=== PATIENT | female | born 1945 | race Caucasian/White ===

== ENCOUNTER → 2018-07-31 | Outpatient (CLI) | payer MEDICARE ==
[2015-11-01 10:42] VITALS: BP 128/70
[~2018-07-31] MED LIST: ALPR0.5T6 PO; AMLO5TAB4 PO; ASPI-630 PO; GABA-585 PO; LOSA1TAB25 PO; LOSA25TA54 PO; METO25TA4 PO; OXYC1TAB15 PO; PARO20TA3 PO
--- NOTE | 2018-07-31 14:36 | KCIC ---
3d digital tomography [bilateral] History: Routine screening Technique: Bilateral 3d digital tomographic views were obtained with [employer] [place] and reviewed on a [employer] workstation. In addition, CAD - computer aided detection was utilized. Comparison: None. Findings: Breast Tissue Density D : The breast tissue is predominantly dense. Scattered fibroglandular elements may obscure underlying pathology. There are no suspicious masses, microcalcifications or areas of architectural distortion. Impression: No suspicious findings. BI-RADS Category 1: Negative. Normal interval followup. The patient will receive a letter with the results in the mail. Your mammogram demonstrates that you have dense breast tissue, which could hide abnormalities, and if you have other risk factors for breast cancer that have been identified, you might benefit from supplemental screening tests that may be suggested by your ordering physician. Dense breast tissue, in and of itself, is a relatively common condition. This information is not provided to cause undue concern, but rather to raise your awareness and to promote discussion with your physician regarding the presence of other risk factors, in addition to dense breast tissue. A report of your mammography results will be sent to you and your physician. You should contact your physician if you have any questions or concerns regarding this report. A mammogram does not have 100% sensitivity and therefore a negative imaging study should not delay further work up of a suspicious abnormality. Patient information is entered into the [facility] reminder system using [employer] with a target due date for the next screening mammogram. The patient will receive a reminder. "Our facility is accredited by the [employer] Mammography Program." Electronically signed by: Rob Mckinley III, MD (07/31/2018 2:32 PM) [id number]
== END | disposition home or self-care (01) ==
LOC: KCIC MAMMO 10:59
PROVIDERS: ATTEND Physician Assistant Surgical
DX: Z12.31 Encounter for screening mammogram for malignant neoplasm of breast (principal)
CPT/HCPCS: 77063; 77067

== ENCOUNTER → 2018-09-04 | Day surgery (SDC) | payer MEDICARE ==
[~2018-09-04] MED LIST changes: +ASPI81TA50 PO; +BENZ100C PO; +ERGO500027 PO; +IV RINGERS,LACTATED 1000ML 1,000 ML IV SCH; +LATA2.5D3 EACHEYE; +LIDOCAINE 1% PF 2 ML VIAL. ID PRN; +MIDAZOLAM HCL/PF 2 MG/2 ML VIAL. IV PRN; +PROPOFOL 40 ML IV ONE; +fentaNYL PF VIAL 100 MCG/2 ML VIAL IV PRN
--- NOTE | 2018-09-04 09:14 | CONS ---
DATE OF CONSULTATION: 09/04/2018 REFERRING PHYSICIAN: KLAUDIA Olivera HISTORY OF PRESENT ILLNESS: This is a 73-year-old female with past medical history significant for hypertension, status post cataract surgery, status post cholecystectomy, status post obstructive hydronephrosis surgery on her kidney, seen for a screening colon exam. Bowel habits are regular without diarrhea or constipation. There has been no melena and/or hematochezia. Weight and appetite are stable. Family history is unrevealing for colon polyps or colon cancer to her knowledge. PAST MEDICAL HISTORY: Status post cataract surgery, gallbladder surgery, kidney surgery. ALLERGIES: LATEX. MEDICATIONS: Include aspirin, Tessalon, vitamin D, losartan and metoprolol. FAMILY AND SOCIAL HISTORY: She is a smoker, nondrinker. She is retired. REVIEW OF SYSTEMS: As per records. PHYSICAL EXAMINATION: GENERAL: Reveals a well-nourished, well-developed female. VITAL SIGNS: Temperature is 98, pulse 95, respirations 20. HEENT: Normocephalic and atraumatic head. Pupils and extraocular movements are not tested. Sclerae anicteric. NECK: Supple. LUNGS: Clear. CARDIOVASCULAR: Reveals S1, S2 without S3, S4 or appreciable murmur. ABDOMEN: Soft abdomen, normal bowel sounds without appreciable hepatosplenomegaly. EXTREMITIES: Reveals no cyanosis, clubbing, edema. IMPRESSION AND PLAN: Colorectal screening is warranted at this time. Risks and benefits of procedure including risk of hemorrhage and perforation regarding operation were discussed. The patient is willing to proceed. CHASITY MADDOX MD DR: MORGAN/phyllis JOB#: [id number] / [id number] KAYLEY Ortzi
[2018-09-04 09:32] VITALS: BP 123/58
== END | disposition home or self-care (01) ==
LOC: SURG 07:35
PROVIDERS: ATTEND Internal Medicine Gastroenterology
DX: Z12.11 Encounter for screening for malignant neoplasm of colon (principal); K57.30 Diverticulosis of large intestine without perforation or abscess without bleeding; K64.0 First degree hemorrhoids; I10 Essential (primary) hypertension; Z90.49 Acquired absence of other specified parts of digestive tract; Z98.890 Other specified postprocedural states; Z91.040 Latex allergy status; Z79.82 Long term (current) use of aspirin; Z79.899 Other long term (current) drug therapy; F17.200 Nicotine dependence, unspecified, uncomplicated; Z98.42 Cataract extraction status, left eye; Z98.41 Cataract extraction status, right eye; Z96.1 Presence of intraocular lens
CPT/HCPCS: G0121; J2704; 45378

== ENCOUNTER 2018-12-12 15:24 | Inpatient (IN) | payer MEDICARE ==
[~2018-12-12] VITALS: Ht 165.1 cm; Wt 69.1 kg
[~2018-12-12 15:24] MED LIST changes: -IV RINGERS,LACTATED 1000ML 1,000 ML IV SCH; -LIDOCAINE 1% PF 2 ML VIAL. ID PRN; -MIDAZOLAM HCL/PF 2 MG/2 ML VIAL. IV PRN; -PROPOFOL 40 ML IV ONE; -fentaNYL PF VIAL 100 MCG/2 ML VIAL IV PRN
[2018-12-12] MEDS ORDERED: ASPIRIN 325 MG TABLET PO ONE (16:15)
[2018-12-12] MEDS ORDERED: MORPHINE SULFATE 2 MG/ML VIAL. IV/SQ PRN (16:15)
[2018-12-12] MEDS ORDERED: NITROGLYCERIN SUBLINGUAL 0.4 MG BOTTLE OF 25. SL PRN (16:15)
--- NOTE | 2018-12-12 16:49 | RAD ---
Chest, PA and Lateral: Technique: PA and lateral views of the chest were obtained. History: Chest pain. Comparison: 08/21/2018. Findings/ impression: The heart size grossly appears unremarkable. Mild hyperinflated lungs likely changes of COPD. Biapical lung airspace opacities unchanged. Electronically signed by: Sulaiman Fernando MD (12/12/2018 4:47 PM) [id number]
[2018-12-12 16:53] LABS: BILIRUBIN,URINE NEGATIVE (NEG); CLARITY,URINE CLEAR; COLOR,URINE YELLOW; NITRITE,URINE NEGATIVE (NEG); PH,URINE 6.5; PROTEIN,URINE NEGATIVE (NEG-TRACE); UROBILINOGEN,URINE 0.2 mg/dL (0.2 mg/dL)
[2018-12-12 17:01] LABS: BARBITURATES NEG (NEG); BENZODIAZEPINES NEG (NEG); CANNABINOIDS NEG (NEG); COCAINE NEG (NEG); METHADONE NEG (NEG); OPIATES NEG (NEG); PHENCYCLIDINE NEG (NEG)
[2018-12-12 17:02] LABS: AMPHETAMINE/METHAMPHETAMINE NEG (NEG)
[2018-12-12 17:03] LABS: BASO % 1 % (0-3); EOS % 1 % (0-3); HEMATOCRIT 39.9 % (36.0-47.0); HEMOGLOBIN 12.9 g/dL (12.0-15.5); LYMPH # 1.1 x10^3/uL (1.0-4.8); LYMPH % 24 % (24-48); MEAN CORPUSCULAR HEMOGLOBIN 28 pg (25-35); MEAN CORPUSCULAR HGB CONC 32 g/dL (31-37); MEAN CORPUSCULAR VOLUME 87 fL (79-100); MONO # 0.4 x10^3/uL (0.0-1.1); MONO % 10 % (0-9); NEUT # 2.8 x10^3uL (1.8-7.7); NEUT % 64 % (31-73); PLATELET COUNT 146 x10^3/uL (140-400); RED BLOOD COUNT 4.59 x10^6/uL (3.50-5.40); RED CELL DISTRIBUTION WIDTH 14.1 % (11.5-14.5); WHITE BLOOD COUNT 4.4 x10^3/uL (4.0-11.0)
[2018-12-12 17:04] LABS: BACTERIA,URINE 0 /HPF (0-FEW); SQUAMOUS EPITHELIAL CELL,UR FEW /LPF; WBC,URINE 0 /HPF (0-4)
[2018-12-12 17:12] LABS: CALCIUM 9.4 mg/dL (8.5-10.1); CREATININE 0.7 mg/dL (0.6-1.0); GFR 82.3; POTASSIUM 3.9 mmol/L (3.5-5.1); PROTHROMBIN TIME PATIENT 12.1 SEC (11.7-14.0)
[2018-12-12 17:18] LABS: ALBUMIN 3.7 g/dL (3.4-5.0); ALBUMIN/GLOBULIN RATIO 1.2 (1.0-1.7); MAGNESIUM 1.9 mg/dL (1.8-2.4); TOTAL BILIRUBIN 0.4 mg/dL (0.2-1.0); TOTAL PROTEIN 6.9 g/dL (6.4-8.2)
[2018-12-12 17:26] LABS: CREATINE KINASE 32 U/L (26-192)
--- NOTE | 2018-12-12 20:06 | PHYS DOC ---
Past Medical History Past Medical History: Anxiety, COPD, Hypertension, Other Additional Past Medical Histor: chronic cough, glaucoma, tremors Past Surgical History: Cholecystectomy, Other Additional Past Surgical Histo: left kidney surgery (minor) Additional Information: 1 PACK/DAY Alcohol Use: None Drug Use: None Adult General Chief Complaint Chief Complaint: CHEST PAIN HPI HPI Patient is a 73 year old female with history of hypertension, COPD, current smoker, oxygen 2 L at home and presents to the ED today complaining of a productive cough for 2 days as well as chest pain rated at 4 out of 10 described as achiness. Patient states that achiness in the cast is worse when she is coughing. Denies any fever. Denies anything specifically relieving the achiness. She states is supposed to be on oxygen but typically doesn't use it as prescribed. She states she has chronic shortness of breath from COPD. Review of Systems Review of Systems Constitutional: Denies fever or chills [] Eyes: Denies change in visual acuity, redness, or eye pain [] HENT: Denies nasal congestion or sore throat [] Respiratory: Reports cough, and chronic shortness of breath [] Cardiovascular: Reports chest pain GI: Denies abdominal pain, nausea, vomiting, bloody stools or diarrhea [] : Denies dysuria or hematuria [] Musculoskeletal: Denies back pain or joint pain [] Integument: Denies rash or skin lesions [] Neurologic: Denies headache, focal weakness or sensory changes [] All other systems were reviewed and found to be within normal limits, except as documented in this note. Current Medications Current Medications Current Medications Medications (Trade) Dose Ordered Sig/[facility] Start Time Stop Time Status Last Admin Dose Admin Aspirin (Vicky Aspirin) 325 mg 1X ONCE 12/12/18 16:15 12/12/18 16:18 DC 12/12/18 17:01 325 MG Morphine Sulfate (Morphine Sulfate) 2 mg PRN Q15MIN PRN 12/12/18 16:15 12/13/18 16:14 12/12/18 17:47 2 MG Nitroglycerin (Nitrostat) 0.4 mg PRN Q5MIN PRN 12/12/18 16:15 12/13/18 16:14 12/12/18 17:02 0.4 MG Allergies Allergies Allergies Coded Allergies Type Severity Reaction Last Updated Verified latex Allergy Intermediate Itching 09/04/18 Yes Physical Exam Physical Exam Constitutional: Well developed, well nourished, no acute distress, non-toxic appearance. [] HENT: Normocephalic, atraumatic, bilateral external ears normal, oropharynx moist, no oral exudates, nose normal. [] Eyes: PERRLA, EOMI, conjunctiva normal, no discharge. [] Neck: Normal range of motion, no tenderness, supple, no stridor. [] Cardiovascular:Heart rate regular rhythm, no murmur [] Lungs & Thorax: Diminished breath sounds. Abdomen: Bowel sounds normal, soft, no tenderness, no masses, no pulsatile masses. [] Skin: Warm, dry, no erythema, no rash. [] Back: No tenderness, no CVA tenderness. [] Extremities: No tenderness, no cyanosis, no clubbing, ROM intact, no edema. [] Neurologic: Alert and oriented X 3, normal motor function, normal sensory function, no focal deficits noted. [] Psychologic: Affect normal, judgement normal, mood normal. [] Current Patient Data Vital Signs Vital Signs Date Time Temp Pulse Resp B/P (MAP) Pulse Ox O2 Delivery O2 Flow Rate FiO2 12/12/18 17:47 18 93 Room Air 12/12/18 17:45 64 116/67 (83) 12/12/18 15:58 98.6 98.6 Lab Values Laboratory Tests Test 12/12/18 16:40 12/12/18 16:49 Urine Collection Type Unknown Urine Color Yellow Urine Clarity Clear Urine pH 6.5 Urine Specific [place] 1.010 Urine Protein Negative mg/dL (NEG-TRACE) Urine Glucose (UA) Negative mg/dL (NEG) Urine Ketones (Stick) Negative mg/dL (NEG) Urine Blood Negative (NEG) Urine Nitrite Negative (NEG) Urine Bilirubin Negative (NEG) Urine Urobilinogen Dipstick 0.2 mg/dL (0.2 mg/dL) Urine Leukocyte Esterase Negative (NEG) Urine RBC 1-2 /HPF (0-2) Urine WBC 0 /HPF (0-4) Urine Squamous Epithelial Cells Few /LPF Urine Transitional Epithelial Cells Occ /LPF Urine Renal Epithelial Cells Occ /LPF Urine Bacteria 0 /HPF (0-FEW) Urine Mucus Slight /LPF Urine Opiates Screen Neg (NEG) Urine Methadone Screen Neg (NEG) Urine Barbiturates Neg (NEG) Urine Phencyclidine Screen Neg (NEG) Urine Amphetamine/Methamphetamine Neg (NEG) Urine Benzodiazepines Screen Neg (NEG) Urine Cocaine Screen Neg (NEG) Urine Cannabinoids Screen Neg (NEG) Urine Ethyl Alcohol Neg (NEG) White Blood Count 4.4 x10^3/uL (4.0-11.0) Red Blood Count 4.59 x10^6/uL (3.50-5.40) Hemoglobin 12.9 g/dL (12.0-15.5) Hematocrit 39.9 % (36.0-47.0) Mean Corpuscular Volume 87 fL (79-100) Mean Corpuscular Hemoglobin 28 pg (25-35) Mean Corpuscular Hemoglobin Concent 32 g/dL (31-37) Red Cell Distribution Width 14.1 % (11.5-14.5) Platelet Count 146 x10^3/uL (140-400) Neutrophils (%) (Auto) 64 % (31-73) Lymphocytes (%) (Auto) 24 % (24-48) Monocytes (%) (Auto) 10 % (0-9) H Eosinophils (%) (Auto) 1 % (0-3) Basophils (%) (Auto) 1 % (0-3) Neutrophils # (Auto) 2.8 x10^3uL (1.8-7.7) Lymphocytes # (Auto) 1.1 x10^3/uL (1.0-4.8) Monocytes # (Auto) 0.4 x10^3/uL (0.0-1.1) Eosinophils # (Auto) 0.0 x10^3/uL (0.0-0.7) Basophils # (Auto) 0.0 x10^3/uL (0.0-0.2) Prothrombin Time 12.1 SEC (11.7-14.0) Prothrombin Time INR 0.9 (0.8-1.1) Sodium Level 142 mmol/L (136-145) Potassium Level 3.9 mmol/L (3.5-5.1) Chloride Level 104 mmol/L (98-107) Carbon Dioxide Level 29 mmol/L (21-32) Anion Gap 9 (6-14) Blood Urea Nitrogen 11 mg/dL (7-20) Creatinine 0.7 mg/dL (0.6-1.0) Estimated GFR (Cockcroft-Gault) 82.3 BUN/Creatinine Ratio 16 (6-20) Glucose Level 96 mg/dL (70-99) Calcium Level 9.4 mg/dL (8.5-10.1) Magnesium Level 1.9 mg/dL (1.8-2.4) Total Bilirubin 0.4 mg/dL (0.2-1.0) Aspartate Amino Transferase (AST) 15 U/L (15-37) Alanine Aminotransferase (ALT) 21 U/L (14-59) Alkaline Phosphatase 90 U/L (46-116) Creatine Kinase 32 U/L (26-192) Creatine Kinase MB (Mass) < 0.5 ng/mL (0.0-3.6) Creatine Kinase MB Relative Index % (0-4) Troponin I Quantitative < 0.017 ng/mL (0.000-0.055) ES-Oay-T-Type Natriuretic Peptide 221 pg/mL (0-124) H Total Protein 6.9 g/dL (6.4-8.2) Albumin 3.7 g/dL (3.4-5.0) Albumin/Globulin Ratio 1.2 (1.0-1.7) Thyroid Stimulating Hormone (TSH) 1.155 uIU/mL (0.358-3.74) Laboratory Tests 12/12/18 16:49 Laboratory Tests 12/12/18 16:49 EKG EKG 15:[address] Michaud, sinus rhythm HR 69 no STEMI[] Radiology/Procedures Radiology/Procedures []PROCEDURE: CHEST PA & LATERAL Chest, PA and Lateral: Technique: PA and lateral views of the chest were obtained. History: Chest pain. Comparison: 08/21/2018. Findings/ impression: The heart size grossly appears unremarkable. Mild hyperinflated lungs likely changes of COPD. Biapical lung airspace opacities unchanged. Electronically signed by: Sulaiman Fernando MD (12/12/2018 4:47 PM) [id number] DICTATED and SIGNED BY: SULAIMAN FERNANDO MD DATE: 12/12/18 1647 Course & Med Decision Making Course & Med Decision Making Pertinent Labs and Imaging studies reviewed. (See chart for details) This is a 73-year-old female patient with history of COPD and oxygen 2 L presenting to the ED today complaining of cough, chronic shortness of breath and chest pain, symptoms began 2 days ago. Patient is afebrile in the ED, O2 sats were around 88 on room air, on oxygen she goes as high as 93-95. CBC, CMP, chest x-ray, EKG, negative. Heart score is 4 Spoke to who accepted patient for admission Cardiology consult placed. Denny Disclaimer Dragon Disclaimer This electronic medical record was generated, in whole or in part, using a voice recognition dictation system. Departure Departure Impression: Primary Impression: COPD exacerbation Additional Impression: Chest pain Disposition: 09 ADMITTED INPATIENT Condition: STABLE Referrals: KAYLEY EM (PCP) Problem Qualifiers Additional Impression: Chest pain Chest pain type: unspecified Qualified Codes: R07.9 - Chest pain, unspecified FLAQUITA SANTAMARIA SHAPE HAND December 12, 2018 20:06
[2018-12-12] MEDS ORDERED: ONDANSETRON PF 4 MG/2 ML VIAL. IV PRN (20:30)
[2018-12-12] MEDS ORDERED: ACETAMINOPHEN 325 MG TABLET. PO PRN (20:30)
[2018-12-12] MEDS ORDERED: IPRATRPIUM/ALBUTEROL 0.5/2.5MG 3 ML NEBU. NEB ONE (20:30)
[2018-12-12] MEDS ORDERED: methylPREDNISolone SOD SUCC PF 125 MG/2 ML VIAL. IV ONE (20:30)
[2018-12-12] MEDS ORDERED: MORPHINE SULFATE 2 MG/ML VIAL. IV PRN (20:30)
--- NOTE | 2018-12-12 22:15 | PDOC1 ---
History and Physical Date of Admission Date of Admission DATE: 12/12/18 TIME: 22:08 Identification/Chief Complaint Chief Complaint Shortness of breath Chest pain Source Source: Patient History of Present Illness History of Present Illness Ms Harmon is a 73 year old female with history of hypertension, COPD, current smoker who presents to the ED today complaining of a productive cough for 2 days as well as chest pain rated at 4 out of 10 described as achiness. Patient states that achiness in the chest is worse when she is coughing. Denies any fever. Denies anything specifically relieving the achiness. She states she was previously told to be on oxygen but typically doesn't use it as prescribed. She states she has chronic shortness of breath from COPD. In ED was notably <88% on room air and breathing 20 times per minute with tripoding and some intercostal retractions which improved slightly with steroids and nebulizers, was then called for admission. Past Medical History Cardiovascular: HTN Pulmonary: No pertinent hx CENTRAL NERVOUS SYSTEM: Other GI: No pertinent hx Heme/Onc: No pertinent hx Hepatobiliary: No pertinent hx Psych: Anxiety Musculoskeletal: low back pain Rheumatologic: No pertinent hx Infectious disease: No pertinent hx Renal/: No pertinent hx Endocrine: No pertinent hx Past Surgical History Past Surgical History: Cataract Removal, No pertinent history Family History Family History: Hypertension Social History Smoke: 1 pack per day ALCOHOL: none Drugs: None Current Problem List Problem List Problems Medical Problems: (1) Chest pain Status: Acute (2) COPD exacerbation Status: Acute Current Medications Current Medications Current Medications Aspirin (Vicky Aspirin) 325 mg 1X ONCE PO Last administered on 12/12/18at 17:01; Start 12/12/18 at 16:15; Stop 12/12/18 at 16:18; Status DC Nitroglycerin (Nitrostat) 0.4 mg PRN Q5MIN PRN SL CP RATING > 1/10 Last administered on 12/12/18at 17:02; Start 12/12/18 at 16:15; Stop 12/13/18 at 16:14 Morphine Sulfate (Morphine Sulfate) 2 mg PRN Q15MIN PRN IV/SQ PAIN GREATER THAN 3/10 Last administered on 12/12/18at 17:47; Start 12/12/18 at 16:15; Stop 12/13/18 at 16:14 Albuterol/ Ipratropium (Duoneb) 3 ml 1X ONCE NEB ; Start 12/12/18 at 20:30; Stop 12/12/18 at 20:31; Status DC Methylprednisolone Sodium Succinate (SOLU-Medrol 125MG VIAL) 125 mg 1X ONCE IV Last administered on 12/12/18at 21:34; Start 12/12/18 at 20:30; Stop 12/12/18 at 20:31; Status DC Ondansetron HCl (Zofran) 4 mg PRN Q8HRS PRN IV NAUSEA/VOMITING; Start 12/12/18 at 20:30; Stop 12/13/18 at 20:29 Morphine Sulfate (Morphine Sulfate) 2 mg PRN Q2HR PRN IV PAIN; Start 12/12/18 at 20:30; Stop 12/13/18 at 20:29 Acetaminophen (Tylenol) 650 mg PRN Q4HRS PRN PO FEVER; Start 12/12/18 at 20:30; Stop 12/13/18 at 20:29 Albuterol/ Ipratropium (Duoneb) 3 ml RTQID NEB ; Start 12/13/18 at 08:00; Stop 12/14/18 at 07:59 Aspirin (Ecotrin) 81 mg DAILY PO ; Start 12/13/18 at 09:00 Ergocalciferol (Vitamin D2) 50,000 unit WEEKLY PO ; Start 12/19/18 at 09:00 Losartan Potassium (Cozaar) 100 mg DAILY PO ; Start 12/13/18 at 09:00 Metoprolol Tartrate (Lopressor) 25 mg BID PO ; Start 12/13/18 at 09:00 Latanoprost (Xalatan) 1 drop QHS OU ; Start 12/13/18 at 21:00 Budesonide (Pulmicort) 0.5 mg RTBID NEB ; Start 12/13/18 at 08:00 Active Scripts Active Tessalon Perle (Benzonatate) 100 Mg Capsule 21 Cap PO TID Reported Aspir-Low (Aspirin) 81 Mg Tablet.dr 1 Tab PO DAILY Vitamin D2 (Ergocalciferol (Vitamin D2)) 50,000 Unit Capsule 50,000 Unit PO WEEKLY Latanoprost 2.5 Ml Drops 1 Drop EACHEYE QHS Metoprolol Tartrate 25 Mg Tablet 25 Mg PO BID 1/2 tablet twice daily Losartan Potassium (Losartan Potassium) 25 Mg Tablet 100 Mg PO DAILY Allergies Allergies: Coded Allergies: latex (Verified Allergy, Intermediate, Itching, 09/04/18) ROS General: YES: Fatigue, Malaise; No: Chills, Night Sweats, Appetite, Other PSYCHOLOGICAL ROS: No: Anxiety, Behavioral Disorder, Concentration difficultie, Decreased libido, Depression, Disorientation, Hallucinations, Hostility, Irritablity, Memory difficulties, Mood Swings, Obsessive thoughts, Physical abuse, Sexual abuse, Sleep disturbances, Suicidal ideation, Other Eyes: No Blurry vision, No Decreased vision, No Double vision, No Dry eyes, No Excessive tearing, No Eye Pain, No Itchy Eyes, No Loss of vision, No Photophobia, No Scotomata, No Uses contacts, No Uses glasses, No Other HEENT: No: Heacaches, Visual Changes, Hearing change, Nasal congestion, Nasal discharge, Oral lesions, Sinus pain, Sore Throat, Epistaxis, Sneezing, Snoring, Tinnitus, Vertigo, Vocal changes, Other ALLERGY AND IMMUNOLOGY: No: Hives, Insect Bite Sensitivity, Itchy/Watery Eyes, Nasal Congestion, Post Nasal Drip, Seasonal Allergies, Other Hematological and Lymphatic: No: Bleeding Problems, Blood Clots, Blood Transfusions, Brusing, Night Sweats, Pallor, Swollen Lymph Nodes, Other ENDOCRINE: No: Breast Changes, Galactorrhea, Hair Pattern Changes, Hot Flashes, Malaise/lethargy, Mood Swings, Palpitations, Polydipsia/polyuria, Skin Changes, Temperature Intolerance, Unexpected Weight Changes, Other Breast: No New/Changing Breast Lumps, No Nipple changes, No Nipple discharge, No Other Respiratory: YES: Cough, Pleuritic Pain, Shortness of breath, SOB with excertion, Wheezing; No: Hemoptysis, Orthopnea, Sputum Changes, Stridor, Tachypnea, Other Cardiovascular: yes Chest Pain; No Palpitations, No Orthopnea, No Paroxysmal Noc. Dyspnea, No Edema, No Lt Headedness, No Other Gastrointestinal: Yes Nausea, Yes Abdominal Pain; No Vomiting, No Diarrhea, No Constipation, No Melena, No Hematochezia, No Ot her Genitourinary: No Dysuria, No Frequency, No Incontinence, No Hematuria, No Retention, No Discharge, No Urgency, No Pain, No Flank Pain, No Other, No , No , No , No , No , No , No Musculoskeletal: No Gait Disturbance, No Joint Pain, No Joint Stiffness, No Joint Swelling, No Muscle Pain, No Muscular Weakness, No Pain In:, No Swelling I n:, No Other Neurological: No Behavorial Changes, No Bowel/Bladder ControlChng, No Confusion, No Dizziness, No Gait Disturbance, No Headaches, No Impaired Coord/balance, No Memory Loss, No Numbness/Tingling, No Seizures, No Speech Pro blems, No Tremors, No Visual Changes, No Weakness, No Other Skin: No Dry Skin, No Eczema, No Hair Changes, No Lumps, No Mole Changes, No Mottling, No Nail Changes, No Pruritus, No Rash, No Skin Lesion Changes, No Other, No Acne Physical Exam General: Alert, Oriented X3, Cooperative, No acute distress HEENT: Atraumatic, PERRLA, EOMI, Mucous membr. moist/pink Lungs: Other (Wheezes, prolonged expiratory phase) Heart: S1S2, RRR, no gallops, no murmurs Abdomen: Normal bowel sounds, Soft, No tenderness, No hepatosplenomegaly, No masses Extremities: No clubbing, No cyanosis, No edema, Normal pulses, No tenderness/swelling Skin: No rashes, No breakdown, No significant lesion Neuro: Normal gait, Normal speech, Strength at 5/5 X4 ext, Normal tone, Sensation intact, Cranial nerves 3-12 NL, Reflexes 2+ Psych/Mental Status: Mental status NL, Mood NL Vitals Vitals Vital Signs Date Time Temp Pulse Resp B/P (MAP) Pulse Ox O2 Delivery O2 Flow Rate FiO2 12/12/18 17:47 18 93 Room Air 12/12/18 17:45 64 116/67 (83) 12/12/18 15:58 98.6 98.6 Labs Labs Laboratory Tests Test 12/12/18 16:40 12/12/18 16:49 Urine Collection Type Unknown Urine Color Yellow Urine Clarity Clear Urine pH 6.5 Urine Specific [place] 1.010 Urine Protein Negative mg/dL (NEG-TRACE) Urine Glucose (UA) Negative mg/dL (NEG) Urine Ketones (Stick) Negative mg/dL (NEG) Urine Blood Negative (NEG) Urine Nitrite Negative (NEG) Urine Bilirubin Negative (NEG) Urine Urobilinogen Dipstick 0.2 mg/dL (0.2 mg/dL) Urine Leukocyte Esterase Negative (NEG) Urine RBC 1-2 /HPF (0-2) Urine WBC 0 /HPF (0-4) Urine Squamous Epithelial Cells Few /LPF Urine Transitional Epithelial Cells Occ /LPF Urine Renal Epithelial Cells Occ /LPF Urine Bacteria 0 /HPF (0-FEW) Urine Mucus Slight /LPF Urine Opiates Screen Neg (NEG) Urine Methadone Screen Neg (NEG) Urine Barbiturates Neg (NEG) Urine Phencyclidine Screen Neg (NEG) Urine Amphetamine/Methamphetamine Neg (NEG) Urine Benzodiazepines Screen Neg (NEG) Urine Cocaine Screen Neg (NEG) Urine Cannabinoids Screen Neg (NEG) Urine Ethyl Alcohol Neg (NEG) White Blood Count 4.4 x10^3/uL (4.0-11.0) Red Blood Count 4.59 x10^6/uL (3.50-5.40) Hemoglobin 12.9 g/dL (12.0-15.5) Hematocrit 39.9 % (36.0-47.0) Mean Corpuscular Volume 87 fL (79-100) Mean Corpuscular Hemoglobin 28 pg (25-35) Mean Corpuscular Hemoglobin Concent 32 g/dL (31-37) Red Cell Distribution Width 14.1 % (11.5-14.5) Platelet Count 146 x10^3/uL (140-400) Neutrophils (%) (Auto) 64 % (31-73) Lymphocytes (%) (Auto) 24 % (24-48) Monocytes (%) (Auto) 10 % (0-9) Eosinophils (%) (Auto) 1 % (0-3) Basophils (%) (Auto) 1 % (0-3) Neutrophils # (Auto) 2.8 x10^3uL (1.8-7.7) Lymphocytes # (Auto) 1.1 x10^3/uL (1.0-4.8) Monocytes # (Auto) 0.4 x10^3/uL (0.0-1.1) Eosinophils # (Auto) 0.0 x10^3/uL (0.0-0.7) Basophils # (Auto) 0.0 x10^3/uL (0.0-0.2) Prothrombin Time 12.1 SEC (11.7-14.0) Prothromb Time International Ratio 0.9 (0.8-1.1) Sodium Level 142 mmol/L (136-145) Potassium Level 3.9 mmol/L (3.5-5.1) Chloride Level 104 mmol/L (98-107) Carbon Dioxide Level 29 mmol/L (21-32) Anion Gap 9 (6-14) Blood Urea Nitrogen 11 mg/dL (7-20) Creatinine 0.7 mg/dL (0.6-1.0) Estimated GFR (Cockcroft-Gault) 82.3 BUN/Creatinine Ratio 16 (6-20) Glucose Level 96 mg/dL (70-99) Calcium Level 9.4 mg/dL (8.5-10.1) Magnesium Level 1.9 mg/dL (1.8-2.4) Total Bilirubin 0.4 mg/dL (0.2-1.0) Aspartate Amino Transf (AST/SGOT) 15 U/L (15-37) Alanine Aminotransferase (ALT/SGPT) 21 U/L (14-59) Alkaline Phosphatase 90 U/L (46-116) Creatine Kinase 32 U/L (26-192) Creatine Kinase MB (Mass) < 0.5 ng/mL (0.0-3.6) Creatine Kinase MB Relative Index % (0-4) Troponin I Quantitative < 0.017 ng/mL (0.000-0.055) IU-Adg-E-Type Natriuretic Peptide 221 pg/mL (0-124) Total Protein 6.9 g/dL (6.4-8.2) Albumin 3.7 g/dL (3.4-5.0) Albumin/Globulin Ratio 1.2 (1.0-1.7) Thyroid Stimulating Hormone (TSH) 1.155 uIU/mL (0.358-3.74) Laboratory Tests Test 12/12/18 16:40 12/12/18 16:49 Urine Collection Type Unknown Urine Color Yellow Urine Clarity Clear Urine pH 6.5 Urine Specific [place] 1.010 Urine Protein Negative mg/dL (NEG-TRACE) Urine Glucose (UA) Negative mg/dL (NEG) Urine Ketones (Stick) Negative mg/dL (NEG) Urine Blood Negative (NEG) Urine Nitrite Negative (NEG) Urine Bilirubin Negative (NEG) Urine Urobilinogen Dipstick 0.2 mg/dL (0.2 mg/dL) Urine Leukocyte Esterase Negative (NEG) Urine RBC 1-2 /HPF (0-2) Urine WBC 0 /HPF (0-4) Urine Squamous Epithelial Cells Few /LPF Urine Transitional Epithelial Cells Occ /LPF Urine Renal Epithelial Cells Occ /LPF Urine Bacteria 0 /HPF (0-FEW) Urine Mucus Slight /LPF Urine Opiates Screen Neg (NEG) Urine Methadone Screen Neg (NEG) Urine Barbiturates Neg (NEG) Urine Phencyclidine Screen Neg (NEG) Urine Amphetamine/Methamphetamine Neg (NEG) Urine Benzodiazepines Screen Neg (NEG) Urine Cocaine Screen Neg (NEG) Urine Cannabinoids Screen Neg (NEG) Urine Ethyl Alcohol Neg (NEG) White Blood Count 4.4 x10^3/uL (4.0-11.0) Red Blood Count 4.59 x10^6/uL (3.50-5.40) Hemoglobin 12.9 g/dL (12.0-15.5) Hematocrit 39.9 % (36.0-47.0) Mean Corpuscular Volume 87 fL (79-100) Mean Corpuscular Hemoglobin 28 pg (25-35) Mean Corpuscular Hemoglobin Concent 32 g/dL (31-37) Red Cell Distribution Width 14.1 % (11.5-14.5) Platelet Count 146 x10^3/uL (140-400) Neutrophils (%) (Auto) 64 % (31-73) Lymphocytes (%) (Auto) 24 % (24-48) Monocytes (%) (Auto) 10 % (0-9) Eosinophils (%) (Auto) 1 % (0-3) Basophils (%) (Auto) 1 % (0-3) Neutrophils # (Auto) 2.8 x10^3uL (1.8-7.7) Lymphocytes # (Auto) 1.1 x10^3/uL (1.0-4.8) Monocytes # (Auto) 0.4 x10^3/uL (0.0-1.1) Eosinophils # (Auto) 0.0 x10^3/uL (0.0-0.7) Basophils # (Auto) 0.0 x10^3/uL (0.0-0.2) Prothrombin Time 12.1 SEC (11.7-14.0) Prothromb Time International Ratio 0.9 (0.8-1.1) Sodium Level 142 mmol/L (136-145) Potassium Level 3.9 mmol/L (3.5-5.1) Chloride Level 104 mmol/L (98-107) Carbon Dioxide Level 29 mmol/L (21-32) Anion Gap 9 (6-14) Blood Urea Nitrogen 11 mg/dL (7-20) Creatinine 0.7 mg/dL (0.6-1.0) Estimated GFR (Cockcroft-Gault) 82.3 BUN/Creatinine Ratio 16 (6-20) Glucose Level 96 mg/dL (70-99) Calcium Level 9.4 mg/dL (8.5-10.1) Magnesium Level 1.9 mg/dL (1.8-2.4) Total Bilirubin 0.4 mg/dL (0.2-1.0) Aspartate Amino Transf (AST/SGOT) 15 U/L (15-37) Alanine Aminotransferase (ALT/SGPT) 21 U/L (14-59) Alkaline Phosphatase 90 U/L (46-116) Creatine Kinase 32 U/L (26-192) Creatine Kinase MB (Mass) < 0.5 ng/mL (0.0-3.6) Creatine Kinase MB Relative Index % (0-4) Troponin I Quantitative < 0.017 ng/mL (0.000-0.055) SX-Wtt-F-Type Natriuretic Peptide 221 pg/mL (0-124) Total Protein 6.9 g/dL (6.4-8.2) Albumin 3.7 g/dL (3.4-5.0) Albumin/Globulin Ratio 1.2 (1.0-1.7) Thyroid Stimulating Hormone (TSH) 1.155 uIU/mL (0.358-3.74) Images Images CXR - The heart size grossly appears unremarkable. Mild hyperinflated lungs likely changes of COPD. Biapical lung airspace opacities unchanged. VTE Prophylaxis Ordered VTE Prophylaxis Devices: Yes VTE Pharmacological Prophylaxi: Yes Assessment/Plan Assessment/Plan A/P: Chest pain - likely pleuritic from COPD exacerbation, but with age, gender and smoking will trend troponin, EKG reviewed Acute COPD exacerbation - with productive cough, will start on nebs, steroids, doxycycline Dyspnea with acute hypoxic respiratory failure secondary to acute exacerbation of chronic obstructive pulmonary disease HTN - cont home meds Abdominal pain - will give GI cocktail. she states pepto usually helps Anxiety - cont home meds Smoker for 40 years, one and half pack per day and continues to smoke cigarettes - counseled on cessation - PFTs as an outpatient. - 6-minute walk test at the time of discharge to assess for home oxygen needs. FEN - General diet PPX - Lovenox FULL CODE Inpatient for acute copd exacerbation with chest pain, needs O2 EARNESTINE BRISCOE MD December 12, 2018 22:15
[2018-12-12 22:25] VITALS: BP 136/67
[2018-12-12] MEDS ORDERED: ALPR0.5T6 PO (22:30)
[2018-12-12] MEDS ORDERED: ALBU2.5V8 INH (22:30)
[2018-12-12] MEDS: DOXYCYCLINE HYCLATE 100 MG TABLET PO SCH (22:41)
[2018-12-12] MEDS ORDERED: LIDO:MAALOX 1:1 20 ML SINGLE DOSE. PO PRN (23:15)
[2018-12-12] MEDS ORDERED: ENOXAPARIN 30 MG/0.3 ML SYRINGE. SQ SCH (23:30)
[2018-12-13 03:30] VITALS: BP 107/51
[2018-12-13 05:37] LABS: BASO % 0 % (0-3); EOS % 0 % (0-3); HEMATOCRIT 39.5 % (36.0-47.0); HEMOGLOBIN 13.1 g/dL (12.0-15.5); LYMPH # 0.4 x10^3/uL (1.0-4.8); LYMPH % 13 % (24-48); MEAN CORPUSCULAR HEMOGLOBIN 29 pg (25-35); MEAN CORPUSCULAR HGB CONC 33 g/dL (31-37); MEAN CORPUSCULAR VOLUME 87 fL (79-100); MONO # 0.1 x10^3/uL (0.0-1.1); MONO % 2 % (0-9); NEUT # 2.5 x10^3uL (1.8-7.7); NEUT % 85 % (31-73); PLATELET COUNT 142 x10^3/uL (140-400); RED BLOOD COUNT 4.54 x10^6/uL (3.50-5.40); RED CELL DISTRIBUTION WIDTH 13.9 % (11.5-14.5)
[2018-12-13 06:07] LABS: CALCIUM 9.3 mg/dL (8.5-10.1); CREATININE 0.7 mg/dL (0.6-1.0); GFR 82.3; POTASSIUM 4.8 mmol/L (3.5-5.1)
--- NOTE | 2018-12-13 06:26 | EKG ---
[facility] [address] [place] [address] Test Date: 2018-12-12 Test Time: 15:42:57 Pat Name: ANA GERARD Department: Room: 260 1 Gender: F [employer] Research [employer]ician: : 1945 Requested By: FLAQUITA SANTAMARIA Order Number: [id number] Reading MD: Elmer Tsang Measurements Intervals [place] Rate: 69 P: 64 [place]: 184 QRS: 36 QRSD: 90 T: 53 QT: 364 QTc: 391 Interpretive Statements SINUS RHYTHM QRS(T) CONTOUR ABNORMALITY CONSISTENT WITH ANTEROSEPTAL INFARCT AGE UNDETERMINED ABNORMAL ECG Electronically Signed On 01-03-2019 12:21:59 CDT by Elmer Tsang
[2018-12-13 07:26] VITALS: BP 118/55
[2018-12-13] MEDS: BUDESONIDE 0.5 MG/2 ML NEBU. NEB SCH ×2 (07:53→20:00)
[2018-12-13] MEDS: IPRATRPIUM/ALBUTEROL 0.5/2.5MG 3 ML NEBU. NEB SCH ×4 (07:53→20:00)
[2018-12-13 08:29] LABS: CHOLESTEROL/HDL RATIO 2.6
[2018-12-13] MEDS: METOPROLOL TART IMMED RELEASE 25 MG TABLET. PO SCH ×2 (09:00→21:33)
[2018-12-13] MEDS: LOSARTAN POTASSIUM 50 MG TABLET. PO SCH (09:00)
--- NOTE | 2018-12-13 10:09 | PDOC2 ---
YOLANDA MAC COGNOS CONSULTANT 12/13/18 1009: CARDIAC CONSULT DATE OF CONSULT Date of Consult DATE: 12/13/18 TIME: 09:47 REASON FOR CONSULT Reason for Consult: Chest pain REFERRING PHYSICIAN Referring Physician: Keshav SOURCE Source: Chart review, Patient HISTORY OF PRESENT ILLNESS HISTORY OF PRESENT ILLNESS This is a pleasant 73 yo female admitted for complains of chest pain and SOA. Reports that in the last 3-4 days she has been having intractable coughing productive with white to yellow sputum. She continues to smoke tobacco 1 ppd at least. She uses O2 intermittently. Her CP is midchest achy nonradidating and occurs with cough. No dizziness or any recent falls or injury. No leg swelling. Nom notable wheeze but felt SOA. No fever or chills. She is complaint with her BP and COPD meds. No nausea or vomiting. PAST MEDICAL HISTORY Cardiovascular: HTN Pulmonary: COPD, Pneumonia CENTRAL NERVOUS SYSTEM: Other (Essential tremors) GI: GERD Heme/Onc: No pertinent hx Hepatobiliary: No pertinent hx Psych: Anxiety Musculoskeletal: Osteoarthritis Infectious disease: No pertinent hx ENT: No pertinent hx, Other (glaucoma) Renal/: UTI Endocrine: Osteopenia Dermatology: No pertinent hx PAST SURGICAL HISTORY Past Surgical History: Cholecystectomy, Cataract Removal, Tubal Ligation, Other (left ureteral stent) FAMILY HISTORY Family History: Heart Disease SOCIAL HISTORY Smoke: 1 pack per day ALCOHOL: none Drugs: None Lives: with Family CURRENT MEDICATIONS CURRENT MEDICATIONS Current Medications Medications (Trade) Dose Ordered Sig/Vincent Route PRN Reason Start Time Stop Time Status Last Admin Dose Admin Aspirin (Vicky Aspirin) 325 mg 1X ONCE PO 12/12/18 16:15 12/12/18 16:18 DC 12/12/18 17:01 Nitroglycerin (Nitrostat) 0.4 mg PRN Q5MIN PRN SL CP RATING > 1/10 12/12/18 16:15 12/13/18 16:14 12/12/18 17:02 Morphine Sulfate (Morphine Sulfate) 2 mg PRN Q15MIN PRN IV/SQ PAIN GREATER THAN 3/10 12/12/18 16:15 12/13/18 16:14 12/12/18 17:47 Methylprednisolone Sodium Succinate (SOLU-Medrol 125MG VIAL) 125 mg 1X ONCE IV 12/12/18 20:30 12/12/18 20:31 DC 12/12/18 21:34 Ondansetron HCl (Zofran) 4 mg PRN Q8HRS PRN IV NAUSEA/VOMITING 12/12/18 20:30 12/13/18 20:29 12/12/18 22:41 Albuterol/ Ipratropium (Duoneb) 3 ml RTQID NEB 12/13/18 08:00 12/14/18 07:59 12/13/18 07:53 Budesonide (Pulmicort) 0.5 mg RTBID NEB 12/13/18 08:00 12/13/18 07:53 Doxycycline Hyclate (Vibra-Tab) 100 mg BID PO 12/12/18 22:30 12/12/18 22:41 Multi-Ingredient Mouthwash/Gargle (Gi Cocktail) 20 ml PRN QID PRN PO CHEST PAIN 12/12/18 23:15 12/12/18 23:24 ALLERGIES ALLERGIES: Coded Allergies: latex (Verified Allergy, Intermediate, Itching, 09/04/18) ROS Review of System 14 point ROS evaluated with pertinent positives noted per HPI PHYSICAL EXAM General: Alert, Oriented X3, Cooperative, No acute distress HEENT: Mucous membr. moist/pink Lungs: Other (diminished bases) Heart: Regular rate (SR no ectopies), Normal S1, Normal S2, No murmurs Abdomen: Soft, No tenderness Extremities: No cyanosis, No edema Skin: No breakdown, No significant lesion Neuro: Normal speech, Sensation intact Psych/Mental Status: Mental status NL, Mood NL MUSCULOSKELETAL: Osteoarthritic changes both hands VITALS VITALS Vital Signs Date Time Temp Pulse Resp B/P (MAP) Pulse Ox O2 Delivery O2 Flow Rate FiO2 12/13/18 07:59 97 Nasal Cannula 1.0 12/13/18 07:26 98.5 61 20 118/55 (76) 98.5 LABS Lab: Laboratory Tests Test 12/12/18 16:40 12/12/18 16:49 12/12/18 22:00 12/13/18 05:00 Urine Collection Type Unknown Urine Color Yellow Urine Clarity Clear Urine pH 6.5 Urine Specific [place] 1.010 Urine Protein Negative mg/dL (NEG-TRACE) Urine Glucose (UA) Negative mg/dL (NEG) Urine Ketones (Stick) Negative mg/dL (NEG) Urine Blood Negative (NEG) Urine Nitrite Negative (NEG) Urine Bilirubin Negative (NEG) Urine Urobilinogen Dipstick 0.2 mg/dL (0.2 mg/dL) Urine Leukocyte Esterase Negative (NEG) Urine RBC 1-2 /HPF (0-2) Urine WBC 0 /HPF (0-4) Urine Squamous Epithelial Cells Few /LPF Urine Transitional Epithelial Cells Occ /LPF Urine Renal Epithelial Cells Occ /LPF Urine Bacteria 0 /HPF (0-FEW) Urine Mucus Slight /LPF Urine Opiates Screen Neg (NEG) Urine Methadone Screen Neg (NEG) Urine Barbiturates Neg (NEG) Urine Phencyclidine Screen Neg (NEG) Urine Amphetamine/Methamphetamine Neg (NEG) Urine Benzodiazepines Screen Neg (NEG) Urine Cocaine Screen Neg (NEG) Urine Cannabinoids Screen Neg (NEG) Urine Ethyl Alcohol Neg (NEG) White Blood Count 4.4 x10^3/uL (4.0-11.0) 3.0 x10^3/uL (4.0-11.0) Red Blood Count 4.59 x10^6/uL (3.50-5.40) 4.54 x10^6/uL (3.50-5.40) Hemoglobin 12.9 g/dL (12.0-15.5) 13.1 g/dL (12.0-15.5) Hematocrit 39.9 % (36.0-47.0) 39.5 % (36.0-47.0) Mean Corpuscular Volume 87 fL (79-100) 87 fL (79-100) Mean Corpuscular Hemoglobin 28 pg (25-35) 29 pg (25-35) Mean Corpuscular Hemoglobin Concent 32 g/dL (31-37) 33 g/dL (31-37) Red Cell Distribution Width 14.1 % (11.5-14.5) 13.9 % (11.5-14.5) Platelet Count 146 x10^3/uL (140-400) 142 x10^3/uL (140-400) Neutrophils (%) (Auto) 64 % (31-73) 85 % (31-73) Lymphocytes (%) (Auto) 24 % (24-48) 13 % (24-48) Monocytes (%) (Auto) 10 % (0-9) 2 % (0-9) Eosinophils (%) (Auto) 1 % (0-3) 0 % (0-3) Basophils (%) (Auto) 1 % (0-3) 0 % (0-3) Neutrophils # (Auto) 2.8 x10^3uL (1.8-7.7) 2.5 x10^3uL (1.8-7.7) Lymphocytes # (Auto) 1.1 x10^3/uL (1.0-4.8) 0.4 x10^3/uL (1.0-4.8) Monocytes # (Auto) 0.4 x10^3/uL (0.0-1.1) 0.1 x10^3/uL (0.0-1.1) Eosinophils # (Auto) 0.0 x10^3/uL (0.0-0.7) 0.0 x10^3/uL (0.0-0.7) Basophils # (Auto) 0.0 x10^3/uL (0.0-0.2) 0.0 x10^3/uL (0.0-0.2) Prothrombin Time 12.1 SEC (11.7-14.0) Prothromb Time International Ratio 0.9 (0.8-1.1) Sodium Level 142 mmol/L (136-145) 142 mmol/L (136-145) Potassium Level 3.9 mmol/L (3.5-5.1) 4.8 mmol/L (3.5-5.1) Chloride Level 104 mmol/L (98-107) 106 mmol/L (98-107) Carbon Dioxide Level 29 mmol/L (21-32) 28 mmol/L (21-32) Anion Gap 9 (6-14) 8 (6-14) Blood Urea Nitrogen 11 mg/dL (7-20) 16 mg/dL (7-20) Creatinine 0.7 mg/dL (0.6-1.0) 0.7 mg/dL (0.6-1.0) Estimated GFR (Cockcroft-Gault) 82.3 82.3 BUN/Creatinine Ratio 16 (6-20) Glucose Level 96 mg/dL (70-99) 180 mg/dL (70-99) Calcium Level 9.4 mg/dL (8.5-10.1) 9.3 mg/dL (8.5-10.1) Magnesium Level 1.9 mg/dL (1.8-2.4) Total Bilirubin 0.4 mg/dL (0.2-1.0) Aspartate Amino Transf (AST/SGOT) 15 U/L (15-37) Alanine Aminotransferase (ALT/SGPT) 21 U/L (14-59) Alkaline Phosphatase 90 U/L (46-116) Creatine Kinase 32 U/L (26-192) Creatine Kinase MB (Mass) < 0.5 ng/mL (0.0-3.6) Creatine Kinase MB Relative Index % (0-4) Troponin I Quantitative < 0.017 ng/mL (0.000-0.055) < 0.017 ng/mL (0.000-0.055) < 0.017 ng/mL (0.000-0.055) IV-Wqt-U-Type Natriuretic Peptide 221 pg/mL (0-124) Total Protein 6.9 g/dL (6.4-8.2) Albumin 3.7 g/dL (3.4-5.0) Albumin/Globulin Ratio 1.2 (1.0-1.7) Thyroid Stimulating Hormone (TSH) 1.155 uIU/mL (0.358-3.74) Triglycerides Level 38 mg/dL (0-150) Cholesterol Level 169 mg/dL (0-200) LDL Cholesterol, Calculated 97 mg/dL (0-100) VLDL Cholesterol, Calculated 8 mg/dL (0-40) Non-HDL Cholesterol Calculated 105 mg/dL (0-129) HDL Cholesterol 64 mg/dL (40-60) Cholesterol/HDL Ratio 2.6 ECHOCARDIOGRAM ECHOCARDIOGRAM <Conclusion> The left ventricle is normal size. Left ventricle systolic function is normal. The Ejection Fraction is 55-60%. There is no significant aortic valvular stenosis. Doppler and Color Flow revealed no significant aortic regurgitation. Doppler and Color Flow revealed no mitral valve regurgitation noted. Doppler and Color Flow revealed mild tricuspid regurgitation. The PA pressure was estimated at 28 mmHg. There is no evidence of significant pericardial effusion. DATE: 05/06/14 8598 ASSESSMENT/PLAN ASSESSMENT/PLAN 1. AECOPD with continue heavy tobaccoism 2. Atypical chest pain: due to intractable coughing 3. HTN: controlled Recommendations 1. TTE. 2. If CP persist as an outpt then may consider outpt stress test 3. Follow up in 4 weeks. 4. Continue BP regimen, smoking cessation AMBER VELAZQUEZ MD 12/13/18 9596: CARDIAC CONSULT ASSESSMENT/PLAN ASSESSMENT/PLAN Patient seen and examined. Agree with [employer]CILL[employer] SERVICES MANAGER THERAPY's assessment and plan. Chest pain with atypical features and most probably musculoskeletal 2-D echo showed normal LV systolic function without any wall motion abnormalities Plan for ischemic evaluation as an outpatient Continue current treatment for acute COPD exacerbation Thank you for your consultation YOLANDA MAC APRN December 13, 2018 10:09 AMBER VELAZQUEZ MD December 13, 2018 17:53
--- NOTE | 2018-12-13 10:17 | PDOC ---
PROGRESS NOTES History of Present Illness History of Present Illness Assessment/Plan Assessment/Plan A/P: Chest pain - likely pleuritic from COPD exacerbation, but with age, gender and smoking will trend troponin, EKG reviewed Acute COPD exacerbation - with productive cough, will start on nebs, steroids, d oxycycline Dyspnea with acute hypoxic respiratory failure secondary to acute exacerbation of chronic obstructive pulmonary disease HTN - cont home meds Abdominal pain - will give GI cocktail. she states pepto usually helps Anxiety - cont home meds Smoker for 40 years, one and half pack per day and continues to smoke cigarettes - counseled on cessation - PFTs as an outpatient. - 6-minute walk test at the time of discharge to assess for home oxygen needs. FEN - General diet PPX - Lovenox FULL CODE Inpatient for acute copd exacerbation with chest pain, needs O2 Vitals Vitals Vital Signs Date Time Temp Pulse Resp B/P (MAP) Pulse Ox O2 Delivery O2 Flow Rate FiO2 12/13/18 07:59 97 Nasal Cannula 1.0 12/13/18 07:26 98.5 61 20 118/55 (76) 98.5 Physical Exam General: Alert, Oriented X3, Cooperative, No acute distress Heart: Regular rate (SR no ectopies), Normal S1, Normal S2, No murmurs Lungs: Clear, Other (diminished) Abdomen: Soft, No tenderness Extremities: No cyanosis, No edema Skin: No breakdown, No significant lesion Labs LABS Chest, PA and Lateral: Technique: PA and lateral views of the chest were obtained. History: Chest pain. Comparison: 08/21/2018. Findings/ impression: The heart size grossly appears unremarkable. Mild hyperinflated lungs likely changes of COPD. Biapical lung airspace opacities unchanged. Electronically signed by: Sulaiman Fernando MD (12/12/2018 4:47 PM) [id number] DICTATED and SIGNED BY: SULAIMAN FERNANDO MD DATE: 12/12/18 1647 Laboratory Tests Test 12/12/18 16:40 12/12/18 16:49 12/12/18 22:00 12/13/18 05:00 Urine Collection Type Unknown Urine Color Yellow Urine Clarity Clear Urine pH 6.5 Urine Specific [place] 1.010 Urine Protein Negative mg/dL (NEG-TRACE) Urine Glucose (UA) Negative mg/dL (NEG) Urine Ketones (Stick) Negative mg/dL (NEG) Urine Blood Negative (NEG) Urine Nitrite Negative (NEG) Urine Bilirubin Negative (NEG) Urine Urobilinogen Dipstick 0.2 mg/dL (0.2 mg/dL) Urine Leukocyte Esterase Negative (NEG) Urine RBC 1-2 /HPF (0-2) Urine WBC 0 /HPF (0-4) Urine Squamous Epithelial Cells Few /LPF Urine Transitional Epithelial Cells Occ /LPF Urine Renal Epithelial Cells Occ /LPF Urine Bacteria 0 /HPF (0-FEW) Urine Mucus Slight /LPF Urine Opiates Screen Neg (NEG) Urine Methadone Screen Neg (NEG) Urine Barbiturates Neg (NEG) Urine Phencyclidine Screen Neg (NEG) Urine Amphetamine/Methamphetamine Neg (NEG) Urine Benzodiazepines Screen Neg (NEG) Urine Cocaine Screen Neg (NEG) Urine Cannabinoids Screen Neg (NEG) Urine Ethyl Alcohol Neg (NEG) White Blood Count 4.4 x10^3/uL (4.0-11.0) 3.0 x10^3/uL (4.0-11.0) Red Blood Count 4.59 x10^6/uL (3.50-5.40) 4.54 x10^6/uL (3.50-5.40) Hemoglobin 12.9 g/dL (12.0-15.5) 13.1 g/dL (12.0-15.5) Hematocrit 39.9 % (36.0-47.0) 39.5 % (36.0-47.0) Mean Corpuscular Volume 87 fL (79-100) 87 fL (79-100) Mean Corpuscular Hemoglobin 28 pg (25-35) 29 pg (25-35) Mean Corpuscular Hemoglobin Concent 32 g/dL (31-37) 33 g/dL (31-37) Red Cell Distribution Width 14.1 % (11.5-14.5) 13.9 % (11.5-14.5) Platelet Count 146 x10^3/uL (140-400) 142 x10^3/uL (140-400) Neutrophils (%) (Auto) 64 % (31-73) 85 % (31-73) Lymphocytes (%) (Auto) 24 % (24-48) 13 % (24-48) Monocytes (%) (Auto) 10 % (0-9) 2 % (0-9) Eosinophils (%) (Auto) 1 % (0-3) 0 % (0-3) Basophils (%) (Auto) 1 % (0-3) 0 % (0-3) Neutrophils # (Auto) 2.8 x10^3uL (1.8-7.7) 2.5 x10^3uL (1.8-7.7) Lymphocytes # (Auto) 1.1 x10^3/uL (1.0-4.8) 0.4 x10^3/uL (1.0-4.8) Monocytes # (Auto) 0.4 x10^3/uL (0.0-1.1) 0.1 x10^3/uL (0.0-1.1) Eosinophils # (Auto) 0.0 x10^3/uL (0.0-0.7) 0.0 x10^3/uL (0.0-0.7) Basophils # (Auto) 0.0 x10^3/uL (0.0-0.2) 0.0 x10^3/uL (0.0-0.2) Prothrombin Time 12.1 SEC (11.7-14.0) Prothromb Time International Ratio 0.9 (0.8-1.1) Sodium Level 142 mmol/L (136-145) 142 mmol/L (136-145) Potassium Level 3.9 mmol/L (3.5-5.1) 4.8 mmol/L (3.5-5.1) Chloride Level 104 mmol/L (98-107) 106 mmol/L (98-107) Carbon Dioxide Level 29 mmol/L (21-32) 28 mmol/L (21-32) Anion Gap 9 (6-14) 8 (6-14) Blood Urea Nitrogen 11 mg/dL (7-20) 16 mg/dL (7-20) Creatinine 0.7 mg/dL (0.6-1.0) 0.7 mg/dL (0.6-1.0) Estimated GFR (Cockcroft-Gault) 82.3 82.3 BUN/Creatinine Ratio 16 (6-20) Glucose Level 96 mg/dL (70-99) 180 mg/dL (70-99) Calcium Level 9.4 mg/dL (8.5-10.1) 9.3 mg/dL (8.5-10.1) Magnesium Level 1.9 mg/dL (1.8-2.4) Total Bilirubin 0.4 mg/dL (0.2-1.0) Aspartate Amino Transf (AST/SGOT) 15 U/L (15-37) Alanine Aminotransferase (ALT/SGPT) 21 U/L (14-59) Alkaline Phosphatase 90 U/L (46-116) Creatine Kinase 32 U/L (26-192) Creatine Kinase MB (Mass) < 0.5 ng/mL (0.0-3.6) Creatine Kinase MB Relative Index % (0-4) Troponin I Quantitative < 0.017 ng/mL (0.000-0.055) < 0.017 ng/mL (0.000-0.055) < 0.017 ng/mL (0.000-0.055) XM-Ige-N-Type Natriuretic Peptide 221 pg/mL (0-124) Total Protein 6.9 g/dL (6.4-8.2) Albumin 3.7 g/dL (3.4-5.0) Albumin/Globulin Ratio 1.2 (1.0-1.7) Thyroid Stimulating Hormone (TSH) 1.155 uIU/mL (0.358-3.74) Triglycerides Level 38 mg/dL (0-150) Cholesterol Level 169 mg/dL (0-200) LDL Cholesterol, Calculated 97 mg/dL (0-100) VLDL Cholesterol, Calculated 8 mg/dL (0-40) Non-HDL Cholesterol Calculated 105 mg/dL (0-129) HDL Cholesterol 64 mg/dL (40-60) Cholesterol/HDL Ratio 2.6 Assessment and Plan Assessmemt and Plan Problems Medical Problems: (1) Chest pain Status: Acute (2) COPD exacerbation Status: Acute Comment Review of Relevant I have reviewed the following items aron (where applicable) has been applied. Labs Laboratory Tests Test 12/12/18 16:40 12/12/18 16:49 12/12/18 22:00 12/13/18 05:00 Urine Collection Type Unknown Urine Color Yellow Urine Clarity Clear Urine pH 6.5 Urine Specific [place] 1.010 Urine Protein Negative mg/dL (NEG-TRACE) Urine Glucose (UA) Negative mg/dL (NEG) Urine Ketones (Stick) Negative mg/dL (NEG) Urine Blood Negative (NEG) Urine Nitrite Negative (NEG) Urine Bilirubin Negative (NEG) Urine Urobilinogen Dipstick 0.2 mg/dL (0.2 mg/dL) Urine Leukocyte Esterase Negative (NEG) Urine RBC 1-2 /HPF (0-2) Urine WBC 0 /HPF (0-4) Urine Squamous Epithelial Cells Few /LPF Urine Transitional Epithelial Cells Occ /LPF Urine Renal Epithelial Cells Occ /LPF Urine Bacteria 0 /HPF (0-FEW) Urine Mucus Slight /LPF Urine Opiates Screen Neg (NEG) Urine Methadone Screen Neg (NEG) Urine Barbiturates Neg (NEG) Urine Phencyclidine Screen Neg (NEG) Urine Amphetamine/Methamphetamine Neg (NEG) Urine Benzodiazepines Screen Neg (NEG) Urine Cocaine Screen Neg (NEG) Urine Cannabinoids Screen Neg (NEG) Urine Ethyl Alcohol Neg (NEG) White Blood Count 4.4 x10^3/uL (4.0-11.0) 3.0 x10^3/uL (4.0-11.0) Red Blood Count 4.59 x10^6/uL (3.50-5.40) 4.54 x10^6/uL (3.50-5.40) Hemoglobin 12.9 g/dL (12.0-15.5) 13.1 g/dL (12.0-15.5) Hematocrit 39.9 % (36.0-47.0) 39.5 % (36.0-47.0) Mean Corpuscular Volume 87 fL (79-100) 87 fL (79-100) Mean Corpuscular Hemoglobin 28 pg (25-35) 29 pg (25-35) Mean Corpuscular Hemoglobin Concent 32 g/dL (31-37) 33 g/dL (31-37) Red Cell Distribution Width 14.1 % (11.5-14.5) 13.9 % (11.5-14.5) Platelet Count 146 x10^3/uL (140-400) 142 x10^3/uL (140-400) Neutrophils (%) (Auto) 64 % (31-73) 85 % (31-73) Lymphocytes (%) (Auto) 24 % (24-48) 13 % (24-48) Monocytes (%) (Auto) 10 % (0-9) 2 % (0-9) Eosinophils (%) (Auto) 1 % (0-3) 0 % (0-3) Basophils (%) (Auto) 1 % (0-3) 0 % (0-3) Neutrophils # (Auto) 2.8 x10^3uL (1.8-7.7) 2.5 x10^3uL (1.8-7.7) Lymphocytes # (Auto) 1.1 x10^3/uL (1.0-4.8) 0.4 x10^3/uL (1.0-4.8) Monocytes # (Auto) 0.4 x10^3/uL (0.0-1.1) 0.1 x10^3/uL (0.0-1.1) Eosinophils # (Auto) 0.0 x10^3/uL (0.0-0.7) 0.0 x10^3/uL (0.0-0.7) Basophils # (Auto) 0.0 x10^3/uL (0.0-0.2) 0.0 x10^3/uL (0.0-0.2) Prothrombin Time 12.1 SEC (11.7-14.0) Prothromb Time International Ratio 0.9 (0.8-1.1) Sodium Level 142 mmol/L (136-145) 142 mmol/L (136-145) Potassium Level 3.9 mmol/L (3.5-5.1) 4.8 mmol/L (3.5-5.1) Chloride Level 104 mmol/L (98-107) 106 mmol/L (98-107) Carbon Dioxide Level 29 mmol/L (21-32) 28 mmol/L (21-32) Anion Gap 9 (6-14) 8 (6-14) Blood Urea Nitrogen 11 mg/dL (7-20) 16 mg/dL (7-20) Creatinine 0.7 mg/dL (0.6-1.0) 0.7 mg/dL (0.6-1.0) Estimated GFR (Cockcroft-Gault) 82.3 82.3 BUN/Creatinine Ratio 16 (6-20) Glucose Level 96 mg/dL (70-99) 180 mg/dL (70-99) Calcium Level 9.4 mg/dL (8.5-10.1) 9.3 mg/dL (8.5-10.1) Magnesium Level 1.9 mg/dL (1.8-2.4) Total Bilirubin 0.4 mg/dL (0.2-1.0) Aspartate Amino Transf (AST/SGOT) 15 U/L (15-37) Alanine Aminotransferase (ALT/SGPT) 21 U/L (14-59) Alkaline Phosphatase 90 U/L (46-116) Creatine Kinase 32 U/L (26-192) Creatine Kinase MB (Mass) < 0.5 ng/mL (0.0-3.6) Creatine Kinase MB Relative Index % (0-4) Troponin I Quantitative < 0.017 ng/mL (0.000-0.055) < 0.017 ng/mL (0.000-0.055) < 0.017 ng/mL (0.000-0.055) MP-Cng-I-Type Natriuretic Peptide 221 pg/mL (0-124) Total Protein 6.9 g/dL (6.4-8.2) Albumin 3.7 g/dL (3.4-5.0) Albumin/Globulin Ratio 1.2 (1.0-1.7) Thyroid Stimulating Hormone (TSH) 1.155 uIU/mL (0.358-3.74) Triglycerides Level 38 mg/dL (0-150) Cholesterol Level 169 mg/dL (0-200) LDL Cholesterol, Calculated 97 mg/dL (0-100) VLDL Cholesterol, Calculated 8 mg/dL (0-40) Non-HDL Cholesterol Calculated 105 mg/dL (0-129) HDL Cholesterol 64 mg/dL (40-60) Cholesterol/HDL Ratio 2.6 Laboratory Tests Test 12/12/18 16:40 12/12/18 16:49 12/12/18 22:00 12/13/18 05:00 Urine Collection Type Unknown Urine Color Yellow Urine Clarity Clear Urine pH 6.5 Urine Specific [place] 1.010 Urine Protein Negative mg/dL (NEG-TRACE) Urine Glucose (UA) Negative mg/dL (NEG) Urine Ketones (Stick) Negative mg/dL (NEG) Urine Blood Negative (NEG) Urine Nitrite Negative (NEG) Urine Bilirubin Negative (NEG) Urine Urobilinogen Dipstick 0.2 mg/dL (0.2 mg/dL) Urine Leukocyte Esterase Negative (NEG) Urine RBC 1-2 /HPF (0-2) Urine WBC 0 /HPF (0-4) Urine Squamous Epithelial Cells Few /LPF Urine Transitional Epithelial Cells Occ /LPF Urine Renal Epithelial Cells Occ /LPF Urine Bacteria 0 /HPF (0-FEW) Urine Mucus Slight /LPF Urine Opiates Screen Neg (NEG) Urine Methadone Screen Neg (NEG) Urine Barbiturates Neg (NEG) Urine Phencyclidine Screen Neg (NEG) Urine Amphetamine/Methamphetamine Neg (NEG) Urine Benzodiazepines Screen Neg (NEG) Urine Cocaine Screen Neg (NEG) Urine Cannabinoids Screen Neg (NEG) Urine Ethyl Alcohol Neg (NEG) White Blood Count 4.4 x10^3/uL (4.0-11.0) 3.0 x10^3/uL (4.0-11.0) Red Blood Count 4.59 x10^6/uL (3.50-5.40) 4.54 x10^6/uL (3.50-5.40) Hemoglobin 12.9 g/dL (12.0-15.5) 13.1 g/dL (12.0-15.5) Hematocrit 39.9 % (36.0-47.0) 39.5 % (36.0-47.0) Mean Corpuscular Volume 87 fL (79-100) 87 fL (79-100) Mean Corpuscular Hemoglobin 28 pg (25-35) 29 pg (25-35) Mean Corpuscular Hemoglobin Concent 32 g/dL (31-37) 33 g/dL (31-37) Red Cell Distribution Width 14.1 % (11.5-14.5) 13.9 % (11.5-14.5) Platelet Count 146 x10^3/uL (140-400) 142 x10^3/uL (140-400) Neutrophils (%) (Auto) 64 % (31-73) 85 % (31-73) Lymphocytes (%) (Auto) 24 % (24-48) 13 % (24-48) Monocytes (%) (Auto) 10 % (0-9) 2 % (0-9) Eosinophils (%) (Auto) 1 % (0-3) 0 % (0-3) Basophils (%) (Auto) 1 % (0-3) 0 % (0-3) Neutrophils # (Auto) 2.8 x10^3uL (1.8-7.7) 2.5 x10^3uL (1.8-7.7) Lymphocytes # (Auto) 1.1 x10^3/uL (1.0-4.8) 0.4 x10^3/uL (1.0-4.8) Monocytes # (Auto) 0.4 x10^3/uL (0.0-1.1) 0.1 x10^3/uL (0.0-1.1) Eosinophils # (Auto) 0.0 x10^3/uL (0.0-0.7) 0.0 x10^3/uL (0.0-0.7) Basophils # (Auto) 0.0 x10^3/uL (0.0-0.2) 0.0 x10^3/uL (0.0-0.2) Prothrombin Time 12.1 SEC (11.7-14.0) Prothromb Time International Ratio 0.9 (0.8-1.1) Sodium Level 142 mmol/L (136-145) 142 mmol/L (136-145) Potassium Level 3.9 mmol/L (3.5-5.1) 4.8 mmol/L (3.5-5.1) Chloride Level 104 mmol/L (98-107) 106 mmol/L (98-107) Carbon Dioxide Level 29 mmol/L (21-32) 28 mmol/L (21-32) Anion Gap 9 (6-14) 8 (6-14) Blood Urea Nitrogen 11 mg/dL (7-20) 16 mg/dL (7-20) Creatinine 0.7 mg/dL (0.6-1.0) 0.7 mg/dL (0.6-1.0) Estimated GFR (Cockcroft-Gault) 82.3 82.3 BUN/Creatinine Ratio 16 (6-20) Glucose Level 96 mg/dL (70-99) 180 mg/dL (70-99) Calcium Level 9.4 mg/dL (8.5-10.1) 9.3 mg/dL (8.5-10.1) Magnesium Level 1.9 mg/dL (1.8-2.4) Total Bilirubin 0.4 mg/dL (0.2-1.0) Aspartate Amino Transf (AST/SGOT) 15 U/L (15-37) Alanine Aminotransferase (ALT/SGPT) 21 U/L (14-59) Alkaline Phosphatase 90 U/L (46-116) Creatine Kinase 32 U/L (26-192) Creatine Kinase MB (Mass) < 0.5 ng/mL (0.0-3.6) Creatine Kinase MB Relative Index % (0-4) Troponin I Quantitative < 0.017 ng/mL (0.000-0.055) < 0.017 ng/mL (0.000-0.055) < 0.017 ng/mL (0.000-0.055) RN-Mzx-M-Type Natriuretic Peptide 221 pg/mL (0-124) Total Protein 6.9 g/dL (6.4-8.2) Albumin 3.7 g/dL (3.4-5.0) Albumin/Globulin Ratio 1.2 (1.0-1.7) Thyroid Stimulating Hormone (TSH) 1.155 uIU/mL (0.358-3.74) Triglycerides Level 38 mg/dL (0-150) Cholesterol Level 169 mg/dL (0-200) LDL Cholesterol, Calculated 97 mg/dL (0-100) VLDL Cholesterol, Calculated 8 mg/dL (0-40) Non-HDL Cholesterol Calculated 105 mg/dL (0-129) HDL Cholesterol 64 mg/dL (40-60) Cholesterol/HDL Ratio 2.6 Medications Current Medications Aspirin (GitCafe Aspirin) 325 mg 1X ONCE PO Last administered on 12/12/18at 17:01; Start 12/12/18 at 16:15; Stop 12/12/18 at 16:18; Status DC Nitroglycerin (Nitrostat) 0.4 mg PRN Q5MIN PRN SL CP RATING > 1/10 Last administered on 12/12/18at 17:02; Start 12/12/18 at 16:15; Stop 12/13/18 at 16:14 Morphine Sulfate (Morphine Sulfate) 2 mg PRN Q15MIN PRN IV/SQ PAIN GREATER THAN 3/10 Last administered on 12/12/18at 17:47; Start 12/12/18 at 16:15; Stop 12/13/18 at 16:14 Albuterol/ Ipratropium (Duoneb) 3 ml 1X ONCE NEB ; Start 12/12/18 at 20:30; Stop 12/12/18 at 20:31; Status DC Methylprednisolone Sodium Succinate (SOLU-Medrol 125MG VIAL) 125 mg 1X ONCE IV Last administered on 12/12/18at 21:34; Start 12/12/18 at 20:30; Stop 12/12/18 at 20:31; Status DC Ondansetron HCl (Zofran) 4 mg PRN Q8HRS PRN IV NAUSEA/VOMITING Last administered on 12/12/18at 22:41; Start 12/12/18 at 20:30; Stop 12/13/18 at 20:29 Morphine Sulfate (Morphine Sulfate) 2 mg PRN Q2HR PRN IV PAIN; Start 12/12/18 at 20:30; Stop 12/13/18 at 20:29 Acetaminophen (Tylenol) 650 mg PRN Q4HRS PRN PO FEVER; Start 12/12/18 at 20:30; Stop 12/13/18 at 20:29 Albuterol/ Ipratropium (Duoneb) 3 ml RTQID NEB Last administered on 12/13/18at 07:53; Start 12/13/18 at 08:00; Stop 12/14/18 at 07:59 Aspirin (Ecotrin) 81 mg DAILY PO ; Start 12/13/18 at 09:00 Ergocalciferol (Vitamin D2) 50,000 unit WEEKLY PO ; Start 12/19/18 at 09:00 Losartan Potassium (Cozaar) 100 mg DAILY PO ; Start 12/13/18 at 09:00 Metoprolol Tartrate (Lopressor) 25 mg BID PO ; Start 12/13/18 at 09:00 Latanoprost (Xalatan) 1 drop QHS OU ; Start 12/13/18 at 21:00 Budesonide (Pulmicort) 0.5 mg RTBID NEB Last administered on 12/13/18at 07:53; Start 12/13/18 at 08:00 Doxycycline Hyclate (Vibra-Tab) 100 mg BID PO Last administered on 12/12/18at 22:41; Start 12/12/18 at 22:30 Prednisone (Prednisone) 20 mg DAILY PO ; Start 12/13/18 at 09:00 Multi-Ingredient Mouthwash/Gargle (Gi Cocktail) 20 ml PRN QID PRN PO CHEST PAIN Last administered on 12/12/18at 23:24; Start 12/12/18 at 23:15 Enoxaparin Sodium (Lovenox 30mg Syringe) 30 mg Q24H SQ ; Start 12/12/18 at 23:30 Active Scripts Active Tessalon Perle (Benzonatate) 100 Mg Capsule 21 Cap PO TID Reported Proair Hfa Inhaler (Albuterol Sulfate) 8.5 Gm Hfa.aer.ad 2 Puff INH PRN Q6HRS PRN Alprazolam 0.5 Mg Tablet 0.5 Mg PO PRN Q12HR PRN Aspir-Low (Aspirin) 81 Mg Tablet.dr 1 Tab PO DAILY Vitamin D2 (Ergocalciferol (Vitamin D2)) 50,000 Unit Capsule 50,000 Unit PO WEEKLY Latanoprost 2.5 Ml Drops 1 Drop EACHEYE QHS Metoprolol Tartrate 25 Mg Tablet 25 Mg PO BID 1/2 tablet twice daily Losartan Potassium (Losartan Potassium) 25 Mg Tablet 100 Mg PO DAILY Vitals/I & O Vital Sign - Last 24 Hours 12/12/18 12/12/18 12/12/18 12/12/18 15:58 16:30 17:02 17:10 Temp 98.6 98.6 Pulse 69 76 67 70 Resp 20 18 18 B/P (MAP) 135/66 (89) 137/68 (91) 137/68 110/64 (79) Pulse Ox 93 93 93 O2 Delivery Room Air Room Air Room Air 12/12/18 12/12/18 12/12/18 12/12/18 17:15 17:25 17:45 17:47 Pulse 66 62 64 Resp 18 18 18 18 B/P (MAP) 105/63 (77) 115/68 (84) 116/67 (83) Pulse Ox 93 93 93 93 O2 Delivery Room Air Room Air Room Air Room Air 12/12/18 12/12/18 12/12/18 12/12/18 18:30 19:30 20:30 21:30 Pulse 63 64 66 62 Resp 18 22 20 22 B/P (MAP) 130/63 (85) 129/63 (85) 111/57 (75) 113/57 (75) Pulse Ox 93 94 94 94 O2 Delivery Nasal Cannula Nasal Cannula Nasal Cannula Nasal Cannula O2 Flow Rate 2.0 2.0 2.0 2.0 12/12/18 12/12/18 12/13/18 12/13/18 22:00 22:25 03:30 07:26 Temp 98.0 97.7 98.5 98.0 97.7 98.5 Pulse 64 75 61 Resp 20 20 20 B/P (MAP) 136/67 (90) 107/51 (69) 118/55 (76) Pulse Ox 97 94 98 O2 Delivery Nasal Cannula Nasal Cannula Nasal Cannula Nasal Cannula O2 Flow Rate 2.0 2.0 1.0 1.0 12/13/18 12/13/18 07:56 07:59 Pulse Ox 97 97 O2 Delivery Nasal Cannula Nasal Cannula O2 Flow Rate 1.0 1.0 Intake and Output 12/12/18 12/12/18 12/13/18 15:00 23:00 07:00 Intake Total 600 ml Output Total 350 ml Balance 250 ml MONSE FERNANDO MD December 13, 2018 10:16
[2018-12-13 10:42] VITALS: BP 121/69
--- NOTE | 2018-12-13 10:53 | NUR ---
SW reviewed pt's medical chart and evaluated for dc needs. Pt is from home with daughter and was admitted for chest pain and COPD exacerbation. Pt is currently on 1 liter of O2 and will need a 6 minute walk upon dc. Pt dc with [facility] O2 in July 2018. PT/OT is pending. SW will await PT/OT recommendations, results of 6 minute walk, and proceed accordingly.
[2018-12-13] MEDS: ASPIRIN ENTERIC COATED 81 MG TABLET.DR. PO SCH (14:24)
[2018-12-13] MEDS: predniSONE 20 MG TABLET PO SCH (14:24)
[2018-12-13] MEDS: DOXYCYCLINE HYCLATE 100 MG TABLET PO SCH ×2 (14:24→21:32)
[2018-12-13 14:37] VITALS: BP 97/57
--- NOTE | 2018-12-13 17:16 | CARD ---
MR#: [id number] Date of Study: 12/13/2018 Ordering Physician: YOLANDA MAC, Referring Physician: EARNESTINE BRISCOE, Tech: Zhane Gavin APPROVED REPORT EXAM: Two-dimensional and M-mode echocardiogram with Doppler and color Doppler. Other Information Quality : AverageHR: 73bpm INDICATION COPD Chest Pain RISK FACTORS Hypertension Smoking 2D DIMENSIONS Left Atrium(2D)2.7 (1.6-4.0cm)IVSd1.4 (0.7-1.1cm) Aortic Root(2D)3.1 (2.0-3.7cm)LVDd4.0 (3.9-5.9cm) LVOT Diameter2.0 (1.8-2.4cm)PWd1.1 (0.7-1.1cm) LVDs2.5 (2.5-4.0cm)FS (%) 37.3 % SV48.5 mlLVEF(%)67.9 (>50%) Aortic Valve AoV Peak Raghu.156.8cm/sAoV VTI27.8cm AO Peak GR.9.8mmHgLVOT Peak Raghu.115.1cm/s LVOT VTI 22.39cmAO Mean GR.5mmHg [place]TON (VMAX)1.07na6YMV (VTI)2.57cm2 Mitral Valve MV E Bwvqsleq91.6cm/sMV E Peak Gr.0mmHg MV DECEL [id number] A Zzmxhkhu90.4cm/s MV FQD110xbW/A Ratio1.0 MVA (PHT)2.05cm2 TDI E/Lateral E'7.6 Pulmonary Valve PV Peak Letuzjaa969.3cm/sPV Peak Grad.8mmHg Tricuspid Valve TR P. Gsxefnyp828ax/sRAP [id number] TR Peak Gr.39kbByMYFA39loCu Pulmonary Vein S1 Uxadcpjv61.4cm/sD2 Juwvypym76.6cm/s PVa [id number] LEFT VENTRICLE The left ventricle is normal size. There is mild to moderate concentric left ventricular hypertrophy. The left ventricular systolic function is normal. The Ejection Fraction is 65%. There is normal LV s egmental wall motion. Transmitral Doppler flow pattern is Grade II-pseudonormal filling dynamics. RIGHT VENTRICLE The right ventricle is normal size. There is normal right ventricular wall thickness. The right ventr icular systolic function is normal. ATRIA The left atrium size is normal. The right atrium size is normal. The interatrial septum is intact wit h no evidence for an atrial septal defect or patent foramen ovale as noted on 2-D or Doppler imaging. AORTIC VALVE The aortic valve is normal in structure and function. Doppler and Color Flow revealed no significant aortic regurgitation. There is no significant aortic valvular stenosis. MITRAL VALVE The mitral valve is normal in structure and function. There is no evidence of mitral valve prolapse. There is no mitral valve stenosis. Doppler and Color Flow revealed no mitral valve regurgitation note d. TRICUSPID VALVE The tricuspid valve is normal in structure and function. Doppler and Color Flow revealed trace to mil d tricuspid regurgitation with an estimated PAP of 33 mmHg. There is no tricuspid valve stenosis. PULMONIC VALVE The pulmonary valve is normal in structure and function. Doppler and Color Flow revealed no pulmonic valvular regurgitation. GREAT VESSELS The aortic root is normal in size. The IVC is normal in size and collapses >50% with inspiration. PERICARDIAL EFFUSION There is no evidence of significant pericardial effusion. Critical Notification Critical Value: No <Conclusion> The left ventricular systolic function is normal. The Ejection Fraction is 65%. There is normal LV segmental wall motion. Transmitral Doppler flow pattern is Grade II-pseudonormal filling dynamics. Trace to mild tricuspid regurgitation with an estimated PAP of 33 mmHg. There is no evidence of significant pericardial effusion. Signed by : Elmer Tsang, Electronically Approved : 12/13/2018 17:16:03
[2018-12-13 19:40] VITALS: BP 101/49
[2018-12-13] MEDS: LACTOBACILLUS RHAMNOSUS GG 1 CAPSULE. PO SCH (21:32)
[2018-12-13] MEDS: LATANOPROST 0.005% OPHTH SOLUTION 2.5ML BOTTLE. OU SCH (21:32)
[2018-12-13] MEDS: ENOXAPARIN 40 MG/0.4 ML SYRINGE. SQ SCH (21:33)
[2018-12-13 23:00] VITALS: BP 104/58
[2018-12-14] MEDS ORDERED: IBUPROFEN 200 MG TABLET. PO PRN (02:15)
[2018-12-14 03:50] VITALS: BP 121/59
[2018-12-14 04:38] LABS: BASO % 0 % (0-3); EOS % 0 % (0-3); HEMATOCRIT 33.9 % (36.0-47.0); HEMOGLOBIN 11.2 g/dL (12.0-15.5); LYMPH # 1.3 x10^3/uL (1.0-4.8); LYMPH % 23 % (24-48); MEAN CORPUSCULAR HEMOGLOBIN 29 pg (25-35); MEAN CORPUSCULAR HGB CONC 33 g/dL (31-37); MEAN CORPUSCULAR VOLUME 87 fL (79-100); MONO # 0.5 x10^3/uL (0.0-1.1); MONO % 8 % (0-9); NEUT % 68 % (31-73); PLATELET COUNT 132 x10^3/uL (140-400); RED BLOOD COUNT 3.91 x10^6/uL (3.50-5.40); RED CELL DISTRIBUTION WIDTH 13.8 % (11.5-14.5); WHITE BLOOD COUNT 5.9 x10^3/uL (4.0-11.0)
[2018-12-14 05:01] LABS: ALBUMIN 3.1 g/dL (3.4-5.0); ALBUMIN/GLOBULIN RATIO 1.2 (1.0-1.7); CALCIUM 8.9 mg/dL (8.5-10.1); CREATININE 0.9 mg/dL (0.6-1.0); GFR 61.5; POTASSIUM 4.3 mmol/L (3.5-5.1); TOTAL BILIRUBIN 0.2 mg/dL (0.2-1.0); TOTAL PROTEIN 5.7 g/dL (6.4-8.2)
[2018-12-14 07:00] VITALS: BP 131/64
[2018-12-14] MEDS ORDERED: PANTOPRAZOLE 40 MG TABLET.DR. PO ONE (08:15)
[2018-12-14] MEDS: BUDESONIDE 0.5 MG/2 ML NEBU. NEB SCH ×2 (08:15→20:08)
--- NOTE | 2018-12-14 08:18 | PDOC ---
Provider Note Provider Note [id number] acute on chronic resp fail ae of copd abnl cxr cp see orders CHAPO HUMPHREY MD December 14, 2018 08:18
[2018-12-14] MEDS ORDERED: IOHEXOL 350 MG/ML 100 ML VIAL. IV ONE ×2 (08:45→09:45)
[2018-12-14] MEDS ORDERED: CONTRAST GIVEN. MC PRN (09:00)
[2018-12-14] MEDS: predniSONE 20 MG TABLET PO SCH (09:05)
[2018-12-14] MEDS: METOPROLOL TART IMMED RELEASE 25 MG TABLET. PO SCH ×2 (09:06→21:00)
[2018-12-14] MEDS: DOXYCYCLINE HYCLATE 100 MG TABLET PO SCH ×2 (09:06→22:44)
[2018-12-14] MEDS: ASPIRIN ENTERIC COATED 81 MG TABLET.DR. PO SCH (09:06)
[2018-12-14] MEDS: LACTOBACILLUS RHAMNOSUS GG 1 CAPSULE. PO SCH ×2 (09:06→22:55)
--- NOTE | 2018-12-14 09:15 | CONS ---
DATE OF CONSULTATION: 12/14/2018 I was asked to see this 73-year-old lady for acute exacerbation of COPD. HISTORY OF PRESENT ILLNESS: She does have history of [id number] smoking, continues to smoke about a pack per day. She is on oxygen 2 liters via nasal cannula continuously. For the past 2-3 days, she has had increased cough and chest discomfort. She has had more sputum production. She has had more shortness of breath. She has gastroesophageal reflux symptoms. PAST MEDICAL HISTORY: COPD, chronic respiratory failure, hypertension, glaucoma. ALLERGIES: LATEX. MEDICATIONS: Currently, she is on doxycycline, prednisone 20 mg daily, Lovenox 40 mg subcutaneous daily, nicotine patch, Lopressor, Cozaar, aspirin, Pulmicort. SOCIAL HISTORY: History of [id number]-[id number] smoking, continues to smoke 1 pack per day. FAMILY HISTORY: Hypertension. REVIEW OF SYSTEMS: As mentioned as above, other systems otherwise negative. PHYSICAL EXAMINATION: GENERAL: This is a well-developed lady. VITAL SIGNS: Her O2 saturation on 2 liters of oxygen is 94%, respiratory rate 20, heart rate 58, blood pressure 121/59, temperature 98.1. HEENT: Normocephalic, atraumatic. Pupils equal, round, reactive to light. Throat is clear. Nose is clear. NECK: There is no JVD, lymphadenopathy or thyromegaly. CARDIOVASCULAR: Regular rate and rhythm. PMI is nondisplaced. CHEST: Inspection is normal. LUNGS: End-expiratory wheezing with forced exhalation. Diminished breath sounds. Percussion is within normal limit. ABDOMEN: Soft. Bowel sounds are good. There is no mass. EXTREMITIES: There is no edema. LYMPHATICS: There is no lymphadenopathy. SKIN: Chronic changes. NEUROLOGIC: Alert and oriented. LABORATORY DATA: I reviewed the following lab data: Chest x-ray shows COPD changes, bi-apical lung airspace opacities unchanged. His CT of the chest on 08/21/2018 showed apical patchy opacities, likely subpleural scarring. Mild diffuse emphysema, solid or ground glass nodule 3 mm in right upper lobe area. WBC 5.9, hemoglobin 11.2, platelets 142. Sodium 138, potassium 4.3, chloride 103, CO2 26, glucose 127, BUN 25, creatinine 0.9. Troponin less than 0.01. BNP 221. Echocardiogram showed ejection fraction 65%, mild tricuspid regurgitation with estimated pulmonary artery pressure of 33. IMPRESSION: 1. Jrlqo-mm-deohybw respiratory failure, multifactorial in etiology including acute exacerbation of chronic obstructive pulmonary disease, acute bronchitis, rule out pulmonary embolism versus others. 2. Acute exacerbation of chronic obstructive pulmonary disease. 3. Acute bronchitis. 4. Abnormal chest x-ray and CT of the chest. 5. Hypertension. 6. Tobacco habituation. PLAN AND RECOMMENDATIONS: 1. Titrate FiO2 to keep O2 saturation 92%. 2. Start bronchodilator. 3. Continue inhaled corticosteroid. 4. Continue prednisone. 5. Chest pain could be secondary to gastroesophageal reflux disease versus cardiac versus PE versus acute exacerbation of chronic obstructive pulmonary disease versus others. Cardiology is consulted. 6. I will do a CT angiogram to rule out pulmonary embolism and follow abnormality seen in previous CT. 7. Continue with doxycycline. 8. Monitor respiratory status very closely. 9. I have advised her to stop smoking for ever. 10. Lovenox for DVT prophylaxis. I will add Pepcid for stress ulcer prophylaxis and gastroesophageal reflux disease. Thank you very much for allowing me to participate in care of this very nice lady. I have discussed the findings and recommendation with the patient. She understood and agreed to proceed with the plan. CHAPO HUMPHREY M.D. : Serafin JOB#: [id number] / [id number]
--- NOTE | 2018-12-14 10:09 | RAD ---
Examination: CT angiography chest HISTORY: History of chest pain, shortness of breath COMPARISON: None available TECHNIQUE: Axial CT angiographic images of chest were performed with IV contrast. Coronal and sagittal 3-D MIP reformats are performed Exposure: One or more of the following individualized dose reduction techniques were utilized for this examination: 1. Automated exposure control 2. Adjustment of the mA and/or kV according to patient size 3. Use of iterative reconstruction technique FINDINGS: The central airways are patent. The heart size grossly appears unremarkable. Coronary artery calcifications identified. The caliber of the aorta grossly appears unremarkable. Moderate aortic atherosclerosis. There is no evidence of filling defect identified in the main pulmonary trunk and right and left main pulmonary arteries. Evaluation of the distal lobar, segmental branches of the pulmonary arteries is limited on this examination. Moderate lung emphysematous changes. Soft tissue density identified in the apical lungs probably apical scarring changes or atelectasis identified. No evidence of pleural effusion or pneumothorax. The visualized liver, spleen, adrenals grossly appears unremarkable. Prominent appearing left renal pelvis partially visualized. Moderate degenerative changes thoracic spine. IMPRESSION: 1. No evidence of central pulmonary embolism.. The evaluation of the distal lobar, segmental branches of the pulmonary arteries is somewhat limited. 2. Coronary artery calcifications. 3. Moderate lung emphysematous changes with soft tissue density identified in the bilateral apical lung region probably scarring changes or atelectasis. 4. Prominent appearing left renal pelvis partially visualized , probably prominent extrarenal pelvis. Electronically signed by: Sulaiman Fernando MD (12/14/2018 10:06 AM) [facility]
--- NOTE | 2018-12-14 10:20 | PDOC ---
PROGRESS NOTES History of Present Illness History of Present Illness Assessment/Plan Assessment/Plan A/P: Chest pain - likely pleuritic from COPD exacerbation, but with age, gender and smoking will trend troponin, EKG reviewed Acute COPD exacerbation - with productive cough, will start on nebs, steroids, d oxycycline Dyspnea with acute hypoxic respiratory failure secondary to acute exacerbation of chronic obstructive pulmonary disease HTN - cont home meds Abdominal pain - will give GI cocktail. she states pepto usually helps Anxiety - cont home meds Chest pain with atypical features and most probably musculoskeletal Smoker for 40 years, one and half pack per day and continues to smoke cigarettes - counseled on cessation - PFTs as an outpatient. - 6-minute walk test at the time of discharge to assess for home oxygen needs. FEN - General diet PPX - Lovenox FULL CODE Inpatient for acute copd exacerbation with chest pain, needs O2 26 MIN PT EXAM, CHART REVIEW> 50% of time spent with exam, chart review, pt care coordination Vitals Vitals Vital Signs Date Time Temp Pulse Resp B/P (MAP) Pulse Ox O2 Delivery O2 Flow Rate FiO2 12/14/18 09:06 68 131/64 12/14/18 08:19 93 1.0 12/14/18 07:00 98.5 20 Nasal Cannula 98.5 Physical Exam General: Alert, Oriented X3, Cooperative, No acute distress Heart: Regular rate (SR no ectopies), Normal S1, Normal S2, No murmurs Lungs: Clear, Wheezing, Other (diminished) Abdomen: Normal bowel sounds, Soft, No tenderness Extremities: No cyanosis, No edema Skin: No breakdown, No significant lesion Labs LABS Laboratory Tests Test 12/14/18 04:10 White Blood Count 5.9 x10^3/uL (4.0-11.0) Red Blood Count 3.91 x10^6/uL (3.50-5.40) Hemoglobin 11.2 g/dL (12.0-15.5) Hematocrit 33.9 % (36.0-47.0) Mean Corpuscular Volume 87 fL (79-100) Mean Corpuscular Hemoglobin 29 pg (25-35) Mean Corpuscular Hemoglobin Concent 33 g/dL (31-37) Red Cell Distribution Width 13.8 % (11.5-14.5) Platelet Count 132 x10^3/uL (140-400) Neutrophils (%) (Auto) 68 % (31-73) Lymphocytes (%) (Auto) 23 % (24-48) Monocytes (%) (Auto) 8 % (0-9) Eosinophils (%) (Auto) 0 % (0-3) Basophils (%) (Auto) 0 % (0-3) Neutrophils # (Auto) 4.0 x10^3uL (1.8-7.7) Lymphocytes # (Auto) 1.3 x10^3/uL (1.0-4.8) Monocytes # (Auto) 0.5 x10^3/uL (0.0-1.1) Eosinophils # (Auto) 0.0 x10^3/uL (0.0-0.7) Basophils # (Auto) 0.0 x10^3/uL (0.0-0.2) Sodium Level 138 mmol/L (136-145) Potassium Level 4.3 mmol/L (3.5-5.1) Chloride Level 103 mmol/L (98-107) Carbon Dioxide Level 26 mmol/L (21-32) Anion Gap 9 (6-14) Blood Urea Nitrogen 25 mg/dL (7-20) Creatinine 0.9 mg/dL (0.6-1.0) Estimated GFR (Cockcroft-Gault) 61.5 BUN/Creatinine Ratio 28 (6-20) Glucose Level 127 mg/dL (70-99) Calcium Level 8.9 mg/dL (8.5-10.1) Total Bilirubin 0.2 mg/dL (0.2-1.0) Aspartate Amino Transf (AST/SGOT) 12 U/L (15-37) Alanine Aminotransferase (ALT/SGPT) 16 U/L (14-59) Alkaline Phosphatase 72 U/L (46-116) Total Protein 5.7 g/dL (6.4-8.2) Albumin 3.1 g/dL (3.4-5.0) Albumin/Globulin Ratio 1.2 (1.0-1.7) Assessment and Plan Assessmemt and Plan Problems Medical Problems: (1) Chest pain Status: Acute (2) COPD exacerbation Status: Acute Comment Review of Relevant I have reviewed the following items aron (where applicable) has been applied. Labs Laboratory Tests Test 12/12/18 16:40 12/12/18 16:49 12/12/18 22:00 12/13/18 05:00 Urine Collection Type Unknown Urine Color Yellow Urine Clarity Clear Urine pH 6.5 Urine Specific [place] 1.010 Urine Protein Negative mg/dL (NEG-TRACE) Urine Glucose (UA) Negative mg/dL (NEG) Urine Ketones (Stick) Negative mg/dL (NEG) Urine Blood Negative (NEG) Urine Nitrite Negative (NEG) Urine Bilirubin Negative (NEG) Urine Urobilinogen Dipstick 0.2 mg/dL (0.2 mg/dL) Urine Leukocyte Esterase Negative (NEG) Urine RBC 1-2 /HPF (0-2) Urine WBC 0 /HPF (0-4) Urine Squamous Epithelial Cells Few /LPF Urine Transitional Epithelial Cells Occ /LPF Urine Renal Epithelial Cells Occ /LPF Urine Bacteria 0 /HPF (0-FEW) Urine Mucus Slight /LPF Urine Opiates Screen Neg (NEG) Urine Methadone Screen Neg (NEG) Urine Barbiturates Neg (NEG) Urine Phencyclidine Screen Neg (NEG) Urine Amphetamine/Methamphetamine Neg (NEG) Urine Benzodiazepines Screen Neg (NEG) Urine Cocaine Screen Neg (NEG) Urine Cannabinoids Screen Neg (NEG) Urine Ethyl Alcohol Neg (NEG) White Blood Count 4.4 x10^3/uL (4.0-11.0) 3.0 x10^3/uL (4.0-11.0) Red Blood Count 4.59 x10^6/uL (3.50-5.40) 4.54 x10^6/uL (3.50-5.40) Hemoglobin 12.9 g/dL (12.0-15.5) 13.1 g/dL (12.0-15.5) Hematocrit 39.9 % (36.0-47.0) 39.5 % (36.0-47.0) Mean Corpuscular Volume 87 fL (79-100) 87 fL (79-100) Mean Corpuscular Hemoglobin 28 pg (25-35) 29 pg (25-35) Mean Corpuscular Hemoglobin Concent 32 g/dL (31-37) 33 g/dL (31-37) Red Cell Distribution Width 14.1 % (11.5-14.5) 13.9 % (11.5-14.5) Platelet Count 146 x10^3/uL (140-400) 142 x10^3/uL (140-400) Neutrophils (%) (Auto) 64 % (31-73) 85 % (31-73) Lymphocytes (%) (Auto) 24 % (24-48) 13 % (24-48) Monocytes (%) (Auto) 10 % (0-9) 2 % (0-9) Eosinophils (%) (Auto) 1 % (0-3) 0 % (0-3) Basophils (%) (Auto) 1 % (0-3) 0 % (0-3) Neutrophils # (Auto) 2.8 x10^3uL (1.8-7.7) 2.5 x10^3uL (1.8-7.7) Lymphocytes # (Auto) 1.1 x10^3/uL (1.0-4.8) 0.4 x10^3/uL (1.0-4.8) Monocytes # (Auto) 0.4 x10^3/uL (0.0-1.1) 0.1 x10^3/uL (0.0-1.1) Eosinophils # (Auto) 0.0 x10^3/uL (0.0-0.7) 0.0 x10^3/uL (0.0-0.7) Basophils # (Auto) 0.0 x10^3/uL (0.0-0.2) 0.0 x10^3/uL (0.0-0.2) Prothrombin Time 12.1 SEC (11.7-14.0) Prothromb Time International Ratio 0.9 (0.8-1.1) Sodium Level 142 mmol/L (136-145) 142 mmol/L (136-145) Potassium Level 3.9 mmol/L (3.5-5.1) 4.8 mmol/L (3.5-5.1) Chloride Level 104 mmol/L (98-107) 106 mmol/L (98-107) Carbon Dioxide Level 29 mmol/L (21-32) 28 mmol/L (21-32) Anion Gap 9 (6-14) 8 (6-14) Blood Urea Nitrogen 11 mg/dL (7-20) 16 mg/dL (7-20) Creatinine 0.7 mg/dL (0.6-1.0) 0.7 mg/dL (0.6-1.0) Estimated GFR (Cockcroft-Gault) 82.3 82.3 BUN/Creatinine Ratio 16 (6-20) Glucose Level 96 mg/dL (70-99) 180 mg/dL (70-99) Calcium Level 9.4 mg/dL (8.5-10.1) 9.3 mg/dL (8.5-10.1) Magnesium Level 1.9 mg/dL (1.8-2.4) Total Bilirubin 0.4 mg/dL (0.2-1.0) Aspartate Amino Transf (AST/SGOT) 15 U/L (15-37) Alanine Aminotransferase (ALT/SGPT) 21 U/L (14-59) Alkaline Phosphatase 90 U/L (46-116) Creatine Kinase 32 U/L (26-192) Creatine Kinase MB (Mass) < 0.5 ng/mL (0.0-3.6) Creatine Kinase MB Relative Index % (0-4) Troponin I Quantitative < 0.017 ng/mL (0.000-0.055) < 0.017 ng/mL (0.000-0.055) < 0.017 ng/mL (0.000-0.055) TD-Gtz-S-Type Natriuretic Peptide 221 pg/mL (0-124) Total Protein 6.9 g/dL (6.4-8.2) Albumin 3.7 g/dL (3.4-5.0) Albumin/Globulin Ratio 1.2 (1.0-1.7) Thyroid Stimulating Hormone (TSH) 1.155 uIU/mL (0.358-3.74) Triglycerides Level 38 mg/dL (0-150) Cholesterol Level 169 mg/dL (0-200) LDL Cholesterol, Calculated 97 mg/dL (0-100) VLDL Cholesterol, Calculated 8 mg/dL (0-40) Non-HDL Cholesterol Calculated 105 mg/dL (0-129) HDL Cholesterol 64 mg/dL (40-60) Cholesterol/HDL Ratio 2.6 Test 12/14/18 04:10 White Blood Count 5.9 x10^3/uL (4.0-11.0) Red Blood Count 3.91 x10^6/uL (3.50-5.40) Hemoglobin 11.2 g/dL (12.0-15.5) Hematocrit 33.9 % (36.0-47.0) Mean Corpuscular Volume 87 fL (79-100) Mean Corpuscular Hemoglobin 29 pg (25-35) Mean Corpuscular Hemoglobin Concent 33 g/dL (31-37) Red Cell Distribution Width 13.8 % (11.5-14.5) Platelet Count 132 x10^3/uL (140-400) Neutrophils (%) (Auto) 68 % (31-73) Lymphocytes (%) (Auto) 23 % (24-48) Monocytes (%) (Auto) 8 % (0-9) Eosinophils (%) (Auto) 0 % (0-3) Basophils (%) (Auto) 0 % (0-3) Neutrophils # (Auto) 4.0 x10^3uL (1.8-7.7) Lymphocytes # (Auto) 1.3 x10^3/uL (1.0-4.8) Monocytes # (Auto) 0.5 x10^3/uL (0.0-1.1) Eosinophils # (Auto) 0.0 x10^3/uL (0.0-0.7) Basophils # (Auto) 0.0 x10^3/uL (0.0-0.2) Sodium Level 138 mmol/L (136-145) Potassium Level 4.3 mmol/L (3.5-5.1) Chloride Level 103 mmol/L (98-107) Carbon Dioxide Level 26 mmol/L (21-32) Anion Gap 9 (6-14) Blood Urea Nitrogen 25 mg/dL (7-20) Creatinine 0.9 mg/dL (0.6-1.0) Estimated GFR (Cockcroft-Gault) 61.5 BUN/Creatinine Ratio 28 (6-20) Glucose Level 127 mg/dL (70-99) Calcium Level 8.9 mg/dL (8.5-10.1) Total Bilirubin 0.2 mg/dL (0.2-1.0) Aspartate Amino Transf (AST/SGOT) 12 U/L (15-37) Alanine Aminotransferase (ALT/SGPT) 16 U/L (14-59) Alkaline Phosphatase 72 U/L (46-116) Total Protein 5.7 g/dL (6.4-8.2) Albumin 3.1 g/dL (3.4-5.0) Albumin/Globulin Ratio 1.2 (1.0-1.7) Laboratory Tests Test 12/14/18 04:10 White Blood Count 5.9 x10^3/uL (4.0-11.0) Red Blood Count 3.91 x10^6/uL (3.50-5.40) Hemoglobin 11.2 g/dL (12.0-15.5) Hematocrit 33.9 % (36.0-47.0) Mean Corpuscular Volume 87 fL (79-100) Mean Corpuscular Hemoglobin 29 pg (25-35) Mean Corpuscular Hemoglobin Concent 33 g/dL (31-37) Red Cell Distribution Width 13.8 % (11.5-14.5) Platelet Count 132 x10^3/uL (140-400) Neutrophils (%) (Auto) 68 % (31-73) Lymphocytes (%) (Auto) 23 % (24-48) Monocytes (%) (Auto) 8 % (0-9) Eosinophils (%) (Auto) 0 % (0-3) Basophils (%) (Auto) 0 % (0-3) Neutrophils # (Auto) 4.0 x10^3uL (1.8-7.7) Lymphocytes # (Auto) 1.3 x10^3/uL (1.0-4.8) Monocytes # (Auto) 0.5 x10^3/uL (0.0-1.1) Eosinophils # (Auto) 0.0 x10^3/uL (0.0-0.7) Basophils # (Auto) 0.0 x10^3/uL (0.0-0.2) Sodium Level 138 mmol/L (136-145) Potassium Level 4.3 mmol/L (3.5-5.1) Chloride Level 103 mmol/L (98-107) Carbon Dioxide Level 26 mmol/L (21-32) Anion Gap 9 (6-14) Blood Urea Nitrogen 25 mg/dL (7-20) Creatinine 0.9 mg/dL (0.6-1.0) Estimated GFR (Cockcroft-Gault) 61.5 BUN/Creatinine Ratio 28 (6-20) Glucose Level 127 mg/dL (70-99) Calcium Level 8.9 mg/dL (8.5-10.1) Total Bilirubin 0.2 mg/dL (0.2-1.0) Aspartate Amino Transf (AST/SGOT) 12 U/L (15-37) Alanine Aminotransferase (ALT/SGPT) 16 U/L (14-59) Alkaline Phosphatase 72 U/L (46-116) Total Protein 5.7 g/dL (6.4-8.2) Albumin 3.1 g/dL (3.4-5.0) Albumin/Globulin Ratio 1.2 (1.0-1.7) Microbiology 12/12/18 Blood Culture - Preliminary, Resulted NO GROWTH AFTER 1 DAY Medications Current Medications Aspirin (PlaceFirst Aspirin) 325 mg 1X ONCE PO Last administered on 12/12/18at 17:01; Start 12/12/18 at 16:15; Stop 12/12/18 at 16:18; Status DC Nitroglycerin (Nitrostat) 0.4 mg PRN Q5MIN PRN SL CP 110, 2ND CHOICE Last administered on 12/12/18at 17:02; Start 12/12/18 at 16:15; Stop 12/13/18 at 16:14; Status DC Morphine Sulfate (Morphine Sulfate) 2 mg PRN Q15MIN PRN IV/SQ PAIN GREATER THAN 3/10 Last administered on 12/12/18at 17:47; Start 12/12/18 at 16:15; Stop 12/13 at 10:19; Status DC Albuterol/ Ipratropium (Duoneb) 3 ml 1X ONCE NEB Last administered on 12/13/18at 21:08; Start 12/12/18 at 20:30; Stop 12/12/18 at 20:31; Status DC Methylprednisolone Sodium Succinate (SOLU-Medrol 125MG VIAL) 125 mg 1X ONCE IV Last administered on 12/12/18at 21:34; Start 12/12/18 at 20:30; Stop 12/12/18 at 20:31; Status DC Ondansetron HCl (Zofran) 4 mg PRN Q8HRS PRN IV NAUSEA/VOMITING Last administered on 12/12/18at 22:41; Start 12/12/18 at 20:30; Stop 12/13/18 at 20:29; Status DC Morphine Sulfate (Morphine Sulfate) 2 mg PRN Q2HR PRN IV PAIN; Start 12/12/18 at 20:30; Stop 12/13/18 at 20:29; Status DC Acetaminophen (Tylenol) 650 mg PRN Q4HRS PRN PO FEVER Last administered on 12/13/18 18:18; Start 12/12/18 at 20:30; Stop 12/13/18 at 20:29; Status DC Albuterol/ Ipratropium (Duoneb) 3 ml RTQID NEB Last administered on 12/13/18at 20:00; Start 12/13/18 at 08:00; Stop 12/14/18 at 07:59; Status DC Aspirin (Ecotrin) 81 mg DAILY PO Last administered on 12/14/18 09:06; Start 12/13/18 at 09:00 Ergocalciferol (Vitamin D2) 50,000 unit WEEKLY PO ; Start 12/19/18 at 09:00 Losartan Potassium (Cozaar) 100 mg DAILY PO ; Start 12/13/18 at 09:00 Metoprolol Tartrate (Lopressor) 25 mg BID PO Last administered on 12/14/18at 09:06; Start 12/13/18 at 09:00 Latanoprost (Xalatan) 1 drop QHS OU Last administered on 12/13/18at 21:32; Start 12/13/18 at 21:00 Budesonide (Pulmicort) 0.5 mg RTBID NEB Last administered on 12/14/18at 08:15; Start 12/13/18 at 08:00 Doxycycline Hyclate (Vibra-Tab) 100 mg BID PO Last administered on 12/14/18at 09:06; Start 12/12/18 at 22:30 Prednisone (Prednisone) 20 mg DAILY PO Last administered on 12/14/18at 09:05; Start 12/13/18 at 09:00 Multi-Ingredient Mouthwash/Gargle (Gi Cocktail) 20 ml PRN QID PRN PO CHEST PAIN, 1ST CHOICE Last administered on 12/12/18at 23:24; Start 12/12/18 at 23:15 Enoxaparin Sodium (Lovenox 30mg Syringe) 30 mg Q24H SQ ; Start 12/12/18 at 23:30; Stop 12/13/18 at 10:20; Status DC Enoxaparin Sodium (Lovenox 40mg Syringe) 40 mg Q24H SQ Last administered on 12/13/18at 21:33; Start 12/13/18 at 21:00 Lactobacillus Rhamnosus (Culturelle) 1 cap BID PO Last administered on 12/14/18at 09:06; Start 12/13/18 at 21:00 Nicotine (Nicoderm Cq 14mg) 1 patch PRN DAILY PRN TD SMOKING CESSATION; Start 12/13/18 at 14:30 Ibuprofen (Motrin) 600 mg PRN Q6HRS PRN PO INFLAMMATION Last administered on 12/14/18at 02:29; Start 12/14/18 at 02:15 Albuterol/ Ipratropium (Duoneb) 3 ml RTQID NEB ; Start 12/14/18 at 12:00 Pantoprazole Sodium (Protonix) 40 mg DAILYAC PO ; Start 12/15/18 at 07:30 Pantoprazole Sodium (Protonix) 40 mg 1X ONCE PO Last administered on 12/14/18at 09:06; Start 12/14/18 at 08:15; Stop 12/14/18 at 08:16; Status DC Iohexol (Omnipaque 350 Mg/ml) 90 ml 1X ONCE IV Last administered on 12/14/18at 10:00; Start 12/14/18 at 08:45; Stop 12/14/18 at 08:46; Status DC Info (CONTRAST GIVEN -- Rx MONITORING) 1 each PRN DAILY PRN MC SEE COMMENTS; Start 12/14/18 at 09:00; Stop 12/16/18 at 08:59 Iohexol (Omnipaque 350 Mg/ml) 90 ml 1X ONCE IV ; Start 12/14/18 at 09:45; Stop 12/14/18 at 09:46; Status DC Active Scripts Active Tessalon Perle (Benzonatate) 100 Mg Capsule 21 Cap PO TID Reported Proair Hfa Inhaler (Albuterol Sulfate) 8.5 Gm Hfa.aer.ad 2 Puff INH PRN Q6HRS PRN Alprazolam 0.5 Mg Tablet 0.5 Mg PO PRN Q12HR PRN Aspir-Low (Aspirin) 81 Mg Tablet.dr 1 Tab PO DAILY Vitamin D2 (Ergocalciferol (Vitamin D2)) 50,000 Unit Capsule 50,000 Unit PO WEEKLY Latanoprost 2.5 Ml Drops 1 Drop EACHEYE QHS Metoprolol Tartrate 25 Mg Tablet 25 Mg PO BID 1/2 tablet twice daily Losartan Potassium (Losartan Potassium) 25 Mg Tablet 100 Mg PO DAILY Vitals/I & O Vital Sign - Last 24 Hours 12/13/18 12/13/18 12/13/18 12/13/18 10:42 11:20 14:37 16:25 Temp 99.0 98.2 99.0 98.2 Pulse 70 67 Resp 20 20 B/P (MAP) 121/69 (86) 97/57 (70) Pulse Ox 95 95 96 96 O2 Delivery Nasal Cannula Nasal Cannula Nasal Cannula Nasal Cannula O2 Flow Rate 1.0 1.0 1.0 1.0 12/13/18 12/13/18 12/13/18 12/13/18 19:40 20:26 21:33 23:00 Temp 98.1 97.9 98.1 97.9 Pulse 64 74 61 Resp 20 20 B/P (MAP) 101/49 (66) 101/49 104/58 (73) Pulse Ox 95 93 O2 Delivery Nasal Cannula Nasal Cannula Nasal Cannula O2 Flow Rate 2.0 1.0 2.0 12/14/18 12/14/18 12/14/18 12/14/18 03:50 07:00 08:17 08:19 Temp 98.1 98.5 98.1 98.5 Pulse 58 68 Resp 20 20 B/P (MAP) 121/59 (79) 131/64 (86) Pulse Ox 94 92 93 93 O2 Delivery Nasal Cannula Nasal Cannula O2 Flow Rate 2.0 2.0 1.0 1.0 12/14/18 09:06 Pulse 68 B/P (MAP) 131/64 Intake and Output 12/13/18 12/13/18 12/14/18 14:59 22:59 06:59 Intake Total 800 ml 300 ml Balance 800 ml 300 ml MONSE FERNANDO MD December 14, 2018 10:20
[2018-12-14 11:00] VITALS: BP 133/68
[2018-12-14] MEDS: IPRATRPIUM/ALBUTEROL 0.5/2.5MG 3 ML NEBU. NEB SCH ×3 (12:03→20:08)
[2018-12-14 15:00] VITALS: BP 142/67
[2018-12-14] MEDS: LOSARTAN POTASSIUM 50 MG TABLET. PO SCH (17:31)
[2018-12-14] MEDS: NICOTINE 14MG PATCH. TD PRN (17:50)
[2018-12-14 19:40] VITALS: BP 132/65
[2018-12-14] MEDS: ALPRAZolam 0.25 MG TABLET PO PRN (22:44)
[2018-12-14] MEDS: LATANOPROST 0.005% OPHTH SOLUTION 2.5ML BOTTLE. OU SCH (22:44)
[2018-12-14] MEDS: ENOXAPARIN 40 MG/0.4 ML SYRINGE. SQ SCH (22:49)
[2018-12-14 23:00] VITALS: BP 117/60
[2018-12-15 03:50] VITALS: BP 125/58
[2018-12-15 05:15] LABS: BASO % 0 % (0-3); EOS % 1 % (0-3); HEMOGLOBIN 11.4 g/dL (12.0-15.5); LYMPH # 2.1 x10^3/uL (1.0-4.8); LYMPH % 33 % (24-48); MEAN CORPUSCULAR HEMOGLOBIN 28 pg (25-35); MEAN CORPUSCULAR HGB CONC 33 g/dL (31-37); MEAN CORPUSCULAR VOLUME 87 fL (79-100); MONO # 0.5 x10^3/uL (0.0-1.1); MONO % 8 % (0-9); NEUT # 3.6 x10^3uL (1.8-7.7); NEUT % 58 % (31-73); PLATELET COUNT 145 x10^3/uL (140-400); RED BLOOD COUNT 4.04 x10^6/uL (3.50-5.40); WHITE BLOOD COUNT 6.3 x10^3/uL (4.0-11.0)
[2018-12-15 06:02] LABS: ALBUMIN 3.1 g/dL (3.4-5.0); ALBUMIN/GLOBULIN RATIO 1.2 (1.0-1.7); CALCIUM 9.1 mg/dL (8.5-10.1); CREATININE 0.8 mg/dL (0.6-1.0); GFR 70.5; POTASSIUM 4.1 mmol/L (3.5-5.1); TOTAL BILIRUBIN 0.2 mg/dL (0.2-1.0); TOTAL PROTEIN 5.7 g/dL (6.4-8.2)
[2018-12-15 07:00] VITALS: BP 111/70
--- NOTE | 2018-12-15 07:40 | PDOC ---
PULMONARY PROGRESS NOTES Subjective sob, cough better, no cp Vitals Vital Signs Date Time Temp Pulse Resp B/P (MAP) Pulse Ox O2 Delivery O2 Flow Rate FiO2 12/15/18 03:50 97.7 90 22 125/58 (80) 91 Nasal Cannula 2.0 97.7 ROS: No Nausea, No Chest Pain General: Alert, No acute distress HEENT: Other (nc at perrrl nose throat clear) Lungs: Other (diminished, a few end exp wheezing, better air movement) Cardiovascular: S1, S2 Abdomen: Soft, Non-tender Neuro Exam: Alert Extremities: No Edema Skin: Warm Labs Laboratory Tests Test 12/14/18 04:10 12/15/18 04:45 White Blood Count 5.9 x10^3/uL (4.0-11.0) 6.3 x10^3/uL (4.0-11.0) Red Blood Count 3.91 x10^6/uL (3.50-5.40) 4.04 x10^6/uL (3.50-5.40) Hemoglobin 11.2 g/dL (12.0-15.5) 11.4 g/dL (12.0-15.5) Hematocrit 33.9 % (36.0-47.0) 35.0 % (36.0-47.0) Mean Corpuscular Volume 87 fL (79-100) 87 fL (79-100) Mean Corpuscular Hemoglobin 29 pg (25-35) 28 pg (25-35) Mean Corpuscular Hemoglobin Concent 33 g/dL (31-37) 33 g/dL (31-37) Red Cell Distribution Width 13.8 % (11.5-14.5) 14.0 % (11.5-14.5) Platelet Count 132 x10^3/uL (140-400) 145 x10^3/uL (140-400) Neutrophils (%) (Auto) 68 % (31-73) 58 % (31-73) Lymphocytes (%) (Auto) 23 % (24-48) 33 % (24-48) Monocytes (%) (Auto) 8 % (0-9) 8 % (0-9) Eosinophils (%) (Auto) 0 % (0-3) 1 % (0-3) Basophils (%) (Auto) 0 % (0-3) 0 % (0-3) Neutrophils # (Auto) 4.0 x10^3uL (1.8-7.7) 3.6 x10^3uL (1.8-7.7) Lymphocytes # (Auto) 1.3 x10^3/uL (1.0-4.8) 2.1 x10^3/uL (1.0-4.8) Monocytes # (Auto) 0.5 x10^3/uL (0.0-1.1) 0.5 x10^3/uL (0.0-1.1) Eosinophils # (Auto) 0.0 x10^3/uL (0.0-0.7) 0.0 x10^3/uL (0.0-0.7) Basophils # (Auto) 0.0 x10^3/uL (0.0-0.2) 0.0 x10^3/uL (0.0-0.2) Sodium Level 138 mmol/L (136-145) 143 mmol/L (136-145) Potassium Level 4.3 mmol/L (3.5-5.1) 4.1 mmol/L (3.5-5.1) Chloride Level 103 mmol/L (98-107) 107 mmol/L (98-107) Carbon Dioxide Level 26 mmol/L (21-32) 28 mmol/L (21-32) Anion Gap 9 (6-14) 8 (6-14) Blood Urea Nitrogen 25 mg/dL (7-20) 21 mg/dL (7-20) Creatinine 0.9 mg/dL (0.6-1.0) 0.8 mg/dL (0.6-1.0) Estimated GFR (Cockcroft-Gault) 61.5 70.5 BUN/Creatinine Ratio 28 (6-20) 26 (6-20) Glucose Level 127 mg/dL (70-99) 105 mg/dL (70-99) Calcium Level 8.9 mg/dL (8.5-10.1) 9.1 mg/dL (8.5-10.1) Total Bilirubin 0.2 mg/dL (0.2-1.0) 0.2 mg/dL (0.2-1.0) Aspartate Amino Transf (AST/SGOT) 12 U/L (15-37) 12 U/L (15-37) Alanine Aminotransferase (ALT/SGPT) 16 U/L (14-59) 22 U/L (14-59) Alkaline Phosphatase 72 U/L (46-116) 73 U/L (46-116) Total Protein 5.7 g/dL (6.4-8.2) 5.7 g/dL (6.4-8.2) Albumin 3.1 g/dL (3.4-5.0) 3.1 g/dL (3.4-5.0) Albumin/Globulin Ratio 1.2 (1.0-1.7) 1.2 (1.0-1.7) Laboratory Tests Test 12/15/18 04:45 White Blood Count 6.3 x10^3/uL (4.0-11.0) Red Blood Count 4.04 x10^6/uL (3.50-5.40) Hemoglobin 11.4 g/dL (12.0-15.5) Hematocrit 35.0 % (36.0-47.0) Mean Corpuscular Volume 87 fL (79-100) Mean Corpuscular Hemoglobin 28 pg (25-35) Mean Corpuscular Hemoglobin Concent 33 g/dL (31-37) Red Cell Distribution Width 14.0 % (11.5-14.5) Platelet Count 145 x10^3/uL (140-400) Neutrophils (%) (Auto) 58 % (31-73) Lymphocytes (%) (Auto) 33 % (24-48) Monocytes (%) (Auto) 8 % (0-9) Eosinophils (%) (Auto) 1 % (0-3) Basophils (%) (Auto) 0 % (0-3) Neutrophils # (Auto) 3.6 x10^3uL (1.8-7.7) Lymphocytes # (Auto) 2.1 x10^3/uL (1.0-4.8) Monocytes # (Auto) 0.5 x10^3/uL (0.0-1.1) Eosinophils # (Auto) 0.0 x10^3/uL (0.0-0.7) Basophils # (Auto) 0.0 x10^3/uL (0.0-0.2) Sodium Level 143 mmol/L (136-145) Potassium Level 4.1 mmol/L (3.5-5.1) Chloride Level 107 mmol/L (98-107) Carbon Dioxide Level 28 mmol/L (21-32) Anion Gap 8 (6-14) Blood Urea Nitrogen 21 mg/dL (7-20) Creatinine 0.8 mg/dL (0.6-1.0) Estimated GFR (Cockcroft-Gault) 70.5 BUN/Creatinine Ratio 26 (6-20) Glucose Level 105 mg/dL (70-99) Calcium Level 9.1 mg/dL (8.5-10.1) Total Bilirubin 0.2 mg/dL (0.2-1.0) Aspartate Amino Transf (AST/SGOT) 12 U/L (15-37) Alanine Aminotransferase (ALT/SGPT) 22 U/L (14-59) Alkaline Phosphatase 73 U/L (46-116) Total Protein 5.7 g/dL (6.4-8.2) Albumin 3.1 g/dL (3.4-5.0) Albumin/Globulin Ratio 1.2 (1.0-1.7) Medications Active Scripts Medications Dose Route/Sig Max Daily Dose Days Date Category Dose Instructions Proair Hfa Inhaler (Albuterol Sulfate) 8.5 Gm Hfa.aer.ad 2 Puff INH PRN Q6HRS PRN 12/12/18 Reported Alprazolam 0.5 Mg Tablet 0.5 Mg PO PRN Q12HR PRN 12/12/18 Reported Aspir-Low (Aspirin) 81 Mg Tablet.dr 1 Tab PO DAILY 09/04/18 Reported Tessalon Perle (Benzonatate) 100 Mg Capsule 21 Cap PO TID 08/22/18 Rx Vitamin D2 (Ergocalciferol (Vitamin D2)) 50,000 Unit Capsule 50,000 Unit PO WEEKLY 08/21/18 Reported Latanoprost 2.5 Ml Drops 1 Drop EACHEYE QHS 08/21/18 Reported Metoprolol Tartrate 25 Mg Tablet 25 Mg PO BID 05/06/14 Reported 1/2 tablet twice daily Losartan Potassium (Losartan Potassium) 25 Mg Tablet 100 Mg PO DAILY 05/06/[address] reviewed 1. No evidence of central pulmonary embolism.. The evaluation of the distal lobar, segmental branches of the pulmonary arteries is somewhat limited. 2. Coronary artery calcifications. 3. Moderate lung emphysematous changes with soft tissue density identified in the bilateral apical lung region probably scarring changes or atelectasis. 4. Prominent appearing left renal pelvis partially visualized , probably prominent extrarenal pelvis. Impression . IMPRESSION: 1. Drgpw-so-fhbfott respiratory failure, multifactorial in etiology including acute exacerbation of chronic obstructive pulmonary disease, acute bronchitis, no pulmonary embolism versus others. 2. Acute exacerbation of chronic obstructive pulmonary disease. 3. Acute bronchitis. 4. Abnormal chest x-ray and CT of the chest. 5. Hypertension. 6. Tobacco habituation. Plan . PLAN AND RECOMMENDATIONS: 1. Titrate FiO2 to keep O2 saturation 92%. 2. bronchodilator. 3. Continue inhaled corticosteroid. 4. Continue prednisone w taper. 5. Chest pain could be secondary to gastroesophageal reflux disease versus cardiac versus acute exacerbation of chronic obstructive pulmonary disease versus others. no pe, cardiology on case 6. CT angiogram reviewed, no pe 7. Continue doxycycline. 8. Monitor respiratory status very closely. 9. I have advised her to stop smoking for ever. 10. Lovenox for DVT prophylaxis. Pepcid for stress ulcer prophylaxis and gastroesophageal reflux disease. discussed w pt, rn CHAPO HUMPHREY MD December 15, 2018 07:40
[2018-12-15] MEDS: IPRATRPIUM/ALBUTEROL 0.5/2.5MG 3 ML NEBU. NEB SCH ×4 (08:00→20:35)
[2018-12-15] MEDS: BUDESONIDE 0.5 MG/2 ML NEBU. NEB SCH ×2 (08:00→20:35)
[2018-12-15] MEDS: METOPROLOL TART IMMED RELEASE 25 MG TABLET. PO SCH ×2 (09:14→21:00)
[2018-12-15] MEDS: predniSONE 20 MG TABLET PO SCH (09:14)
[2018-12-15] MEDS: PANTOPRAZOLE 40 MG TABLET.DR. PO SCH (09:14)
[2018-12-15] MEDS: ASPIRIN ENTERIC COATED 81 MG TABLET.DR. PO SCH (09:15)
[2018-12-15] MEDS: NICOTINE 14MG PATCH. TD PRN (09:15)
[2018-12-15] MEDS: LOSARTAN POTASSIUM 50 MG TABLET. PO SCH (09:15)
[2018-12-15] MEDS: LACTOBACILLUS RHAMNOSUS GG 1 CAPSULE. PO SCH ×2 (09:15→22:33)
[2018-12-15] MEDS: DOXYCYCLINE HYCLATE 100 MG TABLET PO SCH ×2 (09:15→22:33)
--- NOTE | 2018-12-15 09:36 | PDOC ---
PROGRESS NOTES History of Present Illness History of Present Illness Assessment/Plan Assessment/Plan A/P: Chest pain - likely pleuritic from COPD exacerbation, but with age, gender and smoking will trend troponin, EKG reviewed Acute COPD exacerbation - with productive cough, will start on nebs, steroids, d oxycycline Dyspnea with acute hypoxic respiratory failure secondary to acute exacerbation of chronic obstructive pulmonary disease HTN - cont home meds Abdominal pain - will give GI cocktail. she states pepto usually helps Anxiety - cont home meds Chest pain with atypical features and most probably musculoskeletal Smoker for 40 years, one and half pack per day and continues to smoke cigarettes - counseled on cessation OFFERED CLASSES HERE - PFTs as an outpatient. - 6-minute walk test at the time of discharge to assess for home oxygen needs. FEN - General diet PPX - Lovenox FULL CODE Inpatient for acute copd exacerbation with chest pain, needs O2 28 MIN PT EXAM, CHART REVIEW> 50% of time spent with exam, chart review, pt care coordination Vitals Vitals Vital Signs Date Time Temp Pulse Resp B/P (MAP) Pulse Ox O2 Delivery O2 Flow Rate FiO2 12/15/18 09:15 75 12/15/18 08:08 97 Nasal Cannula 1.0 12/15/18 07:00 97.9 16 111/70 (84) 97.9 Physical Exam General: Alert, Oriented X3, Cooperative, No acute distress Heart: Regular rate (SR no ectopies), Normal S1, Normal S2, No murmurs Lungs: Other (diminished, a few end exp wheezing, better air movement lll rhonchi) Abdomen: Normal bowel sounds, Soft, No tenderness Extremities: No cyanosis, No edema Skin: No breakdown, No significant lesion Labs LABS Laboratory Tests Test 12/15/18 04:45 White Blood Count 6.3 x10^3/uL (4.0-11.0) Red Blood Count 4.04 x10^6/uL (3.50-5.40) Hemoglobin 11.4 g/dL (12.0-15.5) Hematocrit 35.0 % (36.0-47.0) Mean Corpuscular Volume 87 fL (79-100) Mean Corpuscular Hemoglobin 28 pg (25-35) Mean Corpuscular Hemoglobin Concent 33 g/dL (31-37) Red Cell Distribution Width 14.0 % (11.5-14.5) Platelet Count 145 x10^3/uL (140-400) Neutrophils (%) (Auto) 58 % (31-73) Lymphocytes (%) (Auto) 33 % (24-48) Monocytes (%) (Auto) 8 % (0-9) Eosinophils (%) (Auto) 1 % (0-3) Basophils (%) (Auto) 0 % (0-3) Neutrophils # (Auto) 3.6 x10^3uL (1.8-7.7) Lymphocytes # (Auto) 2.1 x10^3/uL (1.0-4.8) Monocytes # (Auto) 0.5 x10^3/uL (0.0-1.1) Eosinophils # (Auto) 0.0 x10^3/uL (0.0-0.7) Basophils # (Auto) 0.0 x10^3/uL (0.0-0.2) Sodium Level 143 mmol/L (136-145) Potassium Level 4.1 mmol/L (3.5-5.1) Chloride Level 107 mmol/L (98-107) Carbon Dioxide Level 28 mmol/L (21-32) Anion Gap 8 (6-14) Blood Urea Nitrogen 21 mg/dL (7-20) Creatinine 0.8 mg/dL (0.6-1.0) Estimated GFR (Cockcroft-Gault) 70.5 BUN/Creatinine Ratio 26 (6-20) Glucose Level 105 mg/dL (70-99) Calcium Level 9.1 mg/dL (8.5-10.1) Total Bilirubin 0.2 mg/dL (0.2-1.0) Aspartate Amino Transf (AST/SGOT) 12 U/L (15-37) Alanine Aminotransferase (ALT/SGPT) 22 U/L (14-59) Alkaline Phosphatase 73 U/L (46-116) Total Protein 5.7 g/dL (6.4-8.2) Albumin 3.1 g/dL (3.4-5.0) Albumin/Globulin Ratio 1.2 (1.0-1.7) Assessment and Plan Assessmemt and Plan Problems Medical Problems: (1) Chest pain Status: Acute (2) COPD exacerbation Status: Acute Comment Review of Relevant I have reviewed the following items aron (where applicable) has been applied. Labs Laboratory Tests Test 12/14/18 04:10 12/15/18 04:45 White Blood Count 5.9 x10^3/uL (4.0-11.0) 6.3 x10^3/uL (4.0-11.0) Red Blood Count 3.91 x10^6/uL (3.50-5.40) 4.04 x10^6/uL (3.50-5.40) Hemoglobin 11.2 g/dL (12.0-15.5) 11.4 g/dL (12.0-15.5) Hematocrit 33.9 % (36.0-47.0) 35.0 % (36.0-47.0) Mean Corpuscular Volume 87 fL (79-100) 87 fL (79-100) Mean Corpuscular Hemoglobin 29 pg (25-35) 28 pg (25-35) Mean Corpuscular Hemoglobin Concent 33 g/dL (31-37) 33 g/dL (31-37) Red Cell Distribution Width 13.8 % (11.5-14.5) 14.0 % (11.5-14.5) Platelet Count 132 x10^3/uL (140-400) 145 x10^3/uL (140-400) Neutrophils (%) (Auto) 68 % (31-73) 58 % (31-73) Lymphocytes (%) (Auto) 23 % (24-48) 33 % (24-48) Monocytes (%) (Auto) 8 % (0-9) 8 % (0-9) Eosinophils (%) (Auto) 0 % (0-3) 1 % (0-3) Basophils (%) (Auto) 0 % (0-3) 0 % (0-3) Neutrophils # (Auto) 4.0 x10^3uL (1.8-7.7) 3.6 x10^3uL (1.8-7.7) Lymphocytes # (Auto) 1.3 x10^3/uL (1.0-4.8) 2.1 x10^3/uL (1.0-4.8) Monocytes # (Auto) 0.5 x10^3/uL (0.0-1.1) 0.5 x10^3/uL (0.0-1.1) Eosinophils # (Auto) 0.0 x10^3/uL (0.0-0.7) 0.0 x10^3/uL (0.0-0.7) Basophils # (Auto) 0.0 x10^3/uL (0.0-0.2) 0.0 x10^3/uL (0.0-0.2) Sodium Level 138 mmol/L (136-145) 143 mmol/L (136-145) Potassium Level 4.3 mmol/L (3.5-5.1) 4.1 mmol/L (3.5-5.1) Chloride Level 103 mmol/L (98-107) 107 mmol/L (98-107) Carbon Dioxide Level 26 mmol/L (21-32) 28 mmol/L (21-32) Anion Gap 9 (6-14) 8 (6-14) Blood Urea Nitrogen 25 mg/dL (7-20) 21 mg/dL (7-20) Creatinine 0.9 mg/dL (0.6-1.0) 0.8 mg/dL (0.6-1.0) Estimated GFR (Cockcroft-Gault) 61.5 70.5 BUN/Creatinine Ratio 28 (6-20) 26 (6-20) Glucose Level 127 mg/dL (70-99) 105 mg/dL (70-99) Calcium Level 8.9 mg/dL (8.5-10.1) 9.1 mg/dL (8.5-10.1) Total Bilirubin 0.2 mg/dL (0.2-1.0) 0.2 mg/dL (0.2-1.0) Aspartate Amino Transf (AST/SGOT) 12 U/L (15-37) 12 U/L (15-37) Alanine Aminotransferase (ALT/SGPT) 16 U/L (14-59) 22 U/L (14-59) Alkaline Phosphatase 72 U/L (46-116) 73 U/L (46-116) Total Protein 5.7 g/dL (6.4-8.2) 5.7 g/dL (6.4-8.2) Albumin 3.1 g/dL (3.4-5.0) 3.1 g/dL (3.4-5.0) Albumin/Globulin Ratio 1.2 (1.0-1.7) 1.2 (1.0-1.7) Laboratory Tests Test 12/15/18 04:45 White Blood Count 6.3 x10^3/uL (4.0-11.0) Red Blood Count 4.04 x10^6/uL (3.50-5.40) Hemoglobin 11.4 g/dL (12.0-15.5) Hematocrit 35.0 % (36.0-47.0) Mean Corpuscular Volume 87 fL (79-100) Mean Corpuscular Hemoglobin 28 pg (25-35) Mean Corpuscular Hemoglobin Concent 33 g/dL (31-37) Red Cell Distribution Width 14.0 % (11.5-14.5) Platelet Count 145 x10^3/uL (140-400) Neutrophils (%) (Auto) 58 % (31-73) Lymphocytes (%) (Auto) 33 % (24-48) Monocytes (%) (Auto) 8 % (0-9) Eosinophils (%) (Auto) 1 % (0-3) Basophils (%) (Auto) 0 % (0-3) Neutrophils # (Auto) 3.6 x10^3uL (1.8-7.7) Lymphocytes # (Auto) 2.1 x10^3/uL (1.0-4.8) Monocytes # (Auto) 0.5 x10^3/uL (0.0-1.1) Eosinophils # (Auto) 0.0 x10^3/uL (0.0-0.7) Basophils # (Auto) 0.0 x10^3/uL (0.0-0.2) Sodium Level 143 mmol/L (136-145) Potassium Level 4.1 mmol/L (3.5-5.1) Chloride Level 107 mmol/L (98-107) Carbon Dioxide Level 28 mmol/L (21-32) Anion Gap 8 (6-14) Blood Urea Nitrogen 21 mg/dL (7-20) Creatinine 0.8 mg/dL (0.6-1.0) Estimated GFR (Cockcroft-Gault) 70.5 BUN/Creatinine Ratio 26 (6-20) Glucose Level 105 mg/dL (70-99) Calcium Level 9.1 mg/dL (8.5-10.1) Total Bilirubin 0.2 mg/dL (0.2-1.0) Aspartate Amino Transf (AST/SGOT) 12 U/L (15-37) Alanine Aminotransferase (ALT/SGPT) 22 U/L (14-59) Alkaline Phosphatase 73 U/L (46-116) Total Protein 5.7 g/dL (6.4-8.2) Albumin 3.1 g/dL (3.4-5.0) Albumin/Globulin Ratio 1.2 (1.0-1.7) Microbiology 12/12/18 Blood Culture - Preliminary, Resulted NO GROWTH AFTER 2 DAYS Medications Current Medications Aspirin (Covercake Aspirin) 325 mg 1X ONCE PO Last administered on 12/12/18at 17:01; Start 12/12/18 at 16:15; Stop 12/12/18 at 16:18; Status DC Nitroglycerin (Nitrostat) 0.4 mg PRN Q5MIN PRN SL CP 1/10, 2ND CHOICE Last administered on 12/12/18at 17:02; Start 12/12/18 at 16:15; Stop 12/13/18 at 16:14; Status DC Morphine Sulfate (Morphine Sulfate) 2 mg PRN Q15MIN PRN IV/SQ PAIN GREATER THAN 3/10 Last administered on 12/12/18at 17:47; Start 12/12/18 at 16:15; Stop 12/13/18 at 10:19; Status DC Albuterol/ Ipratropium (Duoneb) 3 ml 1X ONCE NEB Last administered on 12/13/18at 21:08; Start 12/12/18 at 20:30; Stop 12/12/18 at 20:31; Status DC Methylprednisolone Sodium Succinate (SOLU-Medrol 125MG VIAL) 125 mg 1X ONCE IV Last administered on 12/12/18at 21:34; Start 12/12/18 at 20:30; Stop 12/12/18 at 20:31; Status DC Ondansetron HCl (Zofran) 4 mg PRN Q8HRS PRN IV NAUSEA/VOMITING Last administered on 12/12/18at 22:41; Start 12/12/18 at 20:30; Stop 12/13/18 at 20:2 9; Status DC Morphine Sulfate (Morphine Sulfate) 2 mg PRN Q2HR PRN IV PAIN; Start 12/12/18 at 20:30; Stop 12/13/18 at 20:29; Status DC Acetaminophen (Tylenol) 650 mg PRN Q4HRS PRN PO FEVER Last administered on 12/13/18at 18:18; Start 12/12/18 at 20:30; Stop 12/13/18 at 20:29; Status DC Albuterol/ Ipratropium (Duoneb) 3 ml RTQID NEB Last administered on 12/13/18at 20:00; Start 12/13/18 at 08:00; Stop 12/14/18 at 07:59; Status DC Aspirin (Ecotrin) 81 mg DAILY PO Last administered on 12/15/18at 09:15; Start 12/13/18 at 09:00 Ergocalciferol (Vitamin D2) 50,000 unit WEEKLY PO ; Start 12/19/18 at 09:00 Losartan Potassium (Cozaar) 100 mg DAILY PO Last administered on 12/15/18at 09:15; Start 12/13/18 at 09:00 Metoprolol Tartrate (Lopressor) 25 mg BID PO Last administered on 12/15/18at 09:14; Start 12/13/18 at 09:00 Latanoprost (Xalatan) 1 drop QHS OU Last administered on 12/14/18at 22:44; Start 12/13/18 at 21:00 Budesonide (Pulmicort) 0.5 mg RTBID NEB Last administered on 12/15/18at 08:00; Start 12/13/18 at 08:00 Doxycycline Hyclate (Vibra-Tab) 100 mg BID PO Last administered on 12/15/18at 09:15; Start 12/12/18 at 22:30 Prednisone (Prednisone) 20 mg DAILY PO Last administered on 12/15/18at 09:14; Start 12/13/18 at 09:00 Multi-Ingredient Mouthwash/Gargle (Gi Cocktail) 20 ml PRN QID PRN PO CHEST PAIN, 1ST CHOICE Last administered on 12/12/18at 23:24; Start 12/12/18 at 23:15 Enoxaparin Sodium (Lovenox 30mg Syringe) 30 mg Q24H SQ ; Start 12/12/18 at 23:30; Stop 12/13/18 at 10:20; Status DC Enoxaparin Sodium (Lovenox 40mg Syringe) 40 mg Q24H SQ Last administered on 12/14/18 22:49; Start 12/13/18 at 21:00 Lactobacillus Rhamnosus (Culturelle) 1 cap BID PO Last administered on 12/15/18at 09:15; Start 12/13/18 at 21:00 Nicotine (Nicoderm Cq 14mg) 1 patch PRN DAILY PRN TD SMOKING CESSATION Last administered on 12/15/18 09:15; Start 12/13/18 at 14:30 Ibuprofen (Motrin) 600 mg PRN Q6HRS PRN PO INFLAMMATION Last administered on 12/14/18 02:29; Start 12/14/18 at 02:15 Albuterol/ Ipratropium (Duoneb) 3 ml RTQID NEB Last administered on 12/15/18at 08:00; Start 12/14/18 at 12:00 Pantoprazole Sodium (Protonix) 40 mg DAILYAC PO Last administered on 12/15/18at 09:14; Start 12/15/18 at 07:30 Pantoprazole Sodium (Protonix) 40 mg 1X ONCE PO Last administered on 12/14/18at 09:06; Start 12/14/18 at 08:15; Stop 12/14/18 at 08:16; Status DC Iohexol (Omnipaque 350 Mg/ml) 90 ml 1X ONCE IV Last administered on 12/14/18at 10:00; Start 12/14/18 at 08:45; Stop 12/14/18 at 08:46; Status DC Info (CONTRAST GIVEN -- Rx MONITORING) 1 each PRN DAILY PRN MC SEE COMMENTS; Start 12/14/18 at 09:00; Stop 12/16/18 at 08:59 Iohexol (Omnipaque 350 Mg/ml) 90 ml 1X ONCE IV ; Start 12/14/18 at 09:45; Stop 12/14/18 at 09:46; Status DC Alprazolam (Xanax) 0.25 mg PRN QHS PRN PO ANXIETY / AGITATION Last administered on 12/14/18at 22:44; Start 12/14/18 at 22:30 Active Scripts Active Tessalon Perle (Benzonatate) 100 Mg Capsule 21 Cap PO TID Reported Proair Hfa Inhaler (Albuterol Sulfate) 8.5 Gm Hfa.aer.ad 2 Puff INH PRN Q6HRS PRN Alprazolam 0.5 Mg Tablet 0.5 Mg PO PRN Q12HR PRN Aspir-Low (Aspirin) 81 Mg Tablet.dr 1 Tab PO DAILY Vitamin D2 (Ergocalciferol (Vitamin D2)) 50,000 Unit Capsule 50,000 Unit PO WEEKLY Latanoprost 2.5 Ml Drops 1 Drop EACHEYE QHS Metoprolol Tartrate 25 Mg Tablet 25 Mg PO BID 1/2 tablet twice daily Losartan Potassium (Losartan Potassium) 25 Mg Tablet 100 Mg PO DAILY Vitals/I & O Vital Sign - Last 24 Hours 12/14/18 12/14/18 12/14/18 12/14/18 11:00 12:04 15:00 15:57 Temp 98.4 98.1 98.4 98.1 Pulse 56 75 Resp 20 20 B/P (MAP) 133/68 (89) 142/67 (92) Pulse Ox 98 94 94 O2 Delivery Nasal Cannula Nasal Cannula Nasal Cannula O2 Flow Rate 2.0 1.0 2.0 1.0 12/14/18 12/14/18 12/14/18 12/14/18 17:31 19:40 20:00 20:10 Temp 98.9 98.9 Pulse 75 65 Resp 20 B/P (MAP) 142/67 132/65 (87) Pulse Ox 95 99 O2 Delivery Room Air Nasal Cannula O2 Flow Rate 1.0 1.0 12/14/18 12/14/18 12/15/18 12/15/18 20:10 23:00 03:50 07:00 Temp 98.0 97.7 97.9 98.0 97.7 97.9 Pulse 66 90 66 Resp 19 22 16 B/P (MAP) 117/60 (79) 125/58 (80) 111/70 (84) Pulse Ox 99 97 91 93 O2 Delivery Nasal Cannula Nasal Cannula Nasal Cannula Nasal Cannula O2 Flow Rate 1.0 2.0 2.0 2.0 12/15/18 12/15/18 12/15/18 08:08 09:14 09:15 Pulse 75 75 Pulse Ox 97 O2 Delivery Nasal Cannula O2 Flow Rate 1.0 Intake and Output 5/18/19 5/18/19 5/19/19 14:59 22:59 06:59 Intake Total 360 ml 500 ml Balance 360 ml 500 ml MONSE FERNANDO MD December 15, 2018 09:36
[2018-12-15 11:02] VITALS: BP 133/72
[2018-12-15 15:06] LABS: BASE EXCESS COOX 0 mmol/L (-3-3); HCO3 COOX 25 mmol/L (21-28); METHEMOGLOBIN 0.3 % (0.0-1.9); OXYHEMOGLOBIN 92.8 %; PCO2 COOX 42 mmHg (35-46); PO2 COOX 67 mmHg (65-108); SAT O2 COOX 93 % (92-99)
[2018-12-15 15:12] VITALS: BP 116/63
[2018-12-15 19:50] VITALS: BP 117/63
[2018-12-15] MEDS: LATANOPROST 0.005% OPHTH SOLUTION 2.5ML BOTTLE. OU SCH (22:33)
[2018-12-15] MEDS: ALPRAZolam 0.25 MG TABLET PO PRN (22:33)
[2018-12-15] MEDS: ENOXAPARIN 40 MG/0.4 ML SYRINGE. SQ SCH (22:38)
[2018-12-15 23:00] VITALS: BP 115/57
[2018-12-16 03:35] VITALS: BP 129/58
[2018-12-16 07:00] VITALS: BP 131/74
[2018-12-16] MEDS: IPRATRPIUM/ALBUTEROL 0.5/2.5MG 3 ML NEBU. NEB SCH ×2 (08:06→11:47)
[2018-12-16] MEDS: BUDESONIDE 0.5 MG/2 ML NEBU. NEB SCH (08:07)
[2018-12-16] MEDS: ASPIRIN ENTERIC COATED 81 MG TABLET.DR. PO SCH (08:41)
[2018-12-16] MEDS: DOXYCYCLINE HYCLATE 100 MG TABLET PO SCH (08:41)
[2018-12-16] MEDS: predniSONE 20 MG TABLET PO SCH (08:41)
[2018-12-16] MEDS: LACTOBACILLUS RHAMNOSUS GG 1 CAPSULE. PO SCH (08:41)
[2018-12-16] MEDS: NICOTINE 14MG PATCH. TD PRN (08:43)
[2018-12-16] MEDS: METOPROLOL TART IMMED RELEASE 25 MG TABLET. PO SCH (08:43)
[2018-12-16] MEDS: PANTOPRAZOLE 40 MG TABLET.DR. PO SCH (08:51)
--- NOTE | 2018-12-16 08:53 | PDOC ---
PULMONARY PROGRESS NOTES Subjective NOT MORE SOA Vitals Vital Signs Date Time Temp Pulse Resp B/P (MAP) Pulse Ox O2 Delivery O2 Flow Rate FiO2 12/16/18 08:43 66 131/74 12/16/18 08:13 94 Room Air 12/16/18 07:00 97.8 16 1.0 97.8 ROS: No Nausea, No Chest Pain General: Alert, No acute distress HEENT: Other (nc at perrrl nose throat clear) Lungs: Other (diminished, a few end exp wheezing, better air movement lll rhonchi) Cardiovascular: S1, S2 Abdomen: Soft, Non-tender Neuro Exam: Alert Extremities: No Edema Skin: Warm Labs Laboratory Tests Test 12/15/18 04:45 12/15/18 13:33 White Blood Count 6.3 x10^3/uL (4.0-11.0) Red Blood Count 4.04 x10^6/uL (3.50-5.40) Hemoglobin 11.4 g/dL (12.0-15.5) Hematocrit 35.0 % (36.0-47.0) Mean Corpuscular Volume 87 fL (79-100) Mean Corpuscular Hemoglobin 28 pg (25-35) Mean Corpuscular Hemoglobin Concent 33 g/dL (31-37) Red Cell Distribution Width 14.0 % (11.5-14.5) Platelet Count 145 x10^3/uL (140-400) Neutrophils (%) (Auto) 58 % (31-73) Lymphocytes (%) (Auto) 33 % (24-48) Monocytes (%) (Auto) 8 % (0-9) Eosinophils (%) (Auto) 1 % (0-3) Basophils (%) (Auto) 0 % (0-3) Neutrophils # (Auto) 3.6 x10^3uL (1.8-7.7) Lymphocytes # (Auto) 2.1 x10^3/uL (1.0-4.8) Monocytes # (Auto) 0.5 x10^3/uL (0.0-1.1) Eosinophils # (Auto) 0.0 x10^3/uL (0.0-0.7) Basophils # (Auto) 0.0 x10^3/uL (0.0-0.2) Sodium Level 143 mmol/L (136-145) Potassium Level 4.1 mmol/L (3.5-5.1) Chloride Level 107 mmol/L (98-107) Carbon Dioxide Level 28 mmol/L (21-32) Anion Gap 8 (6-14) Blood Urea Nitrogen 21 mg/dL (7-20) Creatinine 0.8 mg/dL (0.6-1.0) Estimated GFR (Cockcroft-Gault) 70.5 BUN/Creatinine Ratio 26 (6-20) Glucose Level 105 mg/dL (70-99) Calcium Level 9.1 mg/dL (8.5-10.1) Total Bilirubin 0.2 mg/dL (0.2-1.0) Aspartate Amino Transf (AST/SGOT) 12 U/L (15-37) Alanine Aminotransferase (ALT/SGPT) 22 U/L (14-59) Alkaline Phosphatase 73 U/L (46-116) Total Protein 5.7 g/dL (6.4-8.2) Albumin 3.1 g/dL (3.4-5.0) Albumin/Globulin Ratio 1.2 (1.0-1.7) O2 Saturation 93 % (92-99) Arterial Blood pH 7.39 (7.35-7.45) Arterial Blood pCO2 at Patient Temp 42 mmHg (35-46) Arterial Blood pO2 at Patient Temp 67 mmHg (65-108) Arterial Blood HCO3 25 mmol/L (21-28) Arterial Blood Base Excess 0 mmol/L (-3-3) Oxyhemoglobin 92.8 % Methemoglobin 0.3 % (0.0-1.9) Carbon Monoxide, Quantitative 0.3 % (0.0-1.9) FiO2 21 Laboratory Tests Test 12/15/18 13:33 O2 Saturation 93 % (92-99) Arterial Blood pH 7.39 (7.35-7.45) Arterial Blood pCO2 at Patient Temp 42 mmHg (35-46) Arterial Blood pO2 at Patient Temp 67 mmHg (65-108) Arterial Blood HCO3 25 mmol/L (21-28) Arterial Blood Base Excess 0 mmol/L (-3-3) Oxyhemoglobin 92.8 % Methemoglobin 0.3 % (0.0-1.9) Carbon Monoxide, Quantitative 0.3 % (0.0-1.9) FiO2 21 Medications Active Scripts Medications Dose Route/Sig Max Daily Dose Days Date Category Dose Instructions Proair Hfa Inhaler (Albuterol Sulfate) 8.5 Gm Hfa.aer.ad 2 Puff INH PRN Q6HRS PRN 12/12/18 Reported Alprazolam 0.5 Mg Tablet 0.5 Mg PO PRN Q12HR PRN 12/12/18 Reported Aspir-Low (Aspirin) 81 Mg Tablet.dr 1 Tab PO DAILY 09/04/18 Reported Tessalon Perle (Benzonatate) 100 Mg Capsule 21 Cap PO TID 08/22/18 Rx Vitamin D2 (Ergocalciferol (Vitamin D2)) 50,000 Unit Capsule 50,000 Unit PO WEEKLY 08/21/18 Reported Latanoprost 2.5 Ml Drops 1 Drop EACHEYE QHS 08/21/18 Reported Metoprolol Tartrate 25 Mg Tablet 25 Mg PO BID 05/06/14 Reported 1/2 tablet twice daily Losartan Potassium (Losartan Potassium) 25 Mg Tablet 100 Mg PO DAILY 05/06/[address] reviewed 1. No evidence of central pulmonary embolism.. The evaluation of the distal lobar, segmental branches of the pulmonary arteries is somewhat limited. 2. Coronary artery calcifications. 3. Moderate lung emphysematous changes with soft tissue density identified in the bilateral apical lung region probably scarring changes or atelectasis. 4. Prominent appearing left renal pelvis partially visualized , probably prominent extrarenal pelvis. Impression . IMPRESSION: 1. [id number] respiratory failure, multifactorial in etiology including acute exacerbation of chronic obstructive pulmonary disease 2. Acute exacerbation of chronic obstructive pulmonary disease. 3. Acute bronchitis. 4. Abnormal chest x-ray and CT of the chest. 5. Hypertension. 6. Tobacco habituation. Plan . D/C OK TAPER PRED AND ANTIBX PT WITH EPIGASTRIC PAIN PT INSTRUCTED TO AVOID GERD JOEL MAIER MD December 16, 2018 08:53
--- NOTE | 2018-12-16 09:58 | PDOC ---
PROGRESS NOTES History of Present Illness History of Present Illness discharge dx A/P: acute hypoxic respiratory failure Chest pain - likely pleuritic from COPD exacerbation, but with age, gender and smoking will trend troponin, EKG reviewed Acute COPD exacerbation - with productive cough, will start on nebs, steroids, doxycycline Dyspnea with acute hypoxic respiratory failure secondary to acute exacerbation of chronic obstructive pulmonary disease HTN - cont home meds Abdominal pain - will give GI cocktail. she states pepto usually helps Anxiety - cont home meds Chest pain with atypical features and most probably musculoskeletal Smoker for 40 years, one and half pack per day and continues to smoke cigarettes - counseled on cessation OFFERED CLASSES HERE - PFTs as an outpatient. - 6-minute walk test at the time of discharge to assess for home oxygen needs.ok FEN - General diet PPX - Lovenox FULL CODE Inpatient for acute copd exacerbation with chest pain, needs O2 38 MIN PT EXAM,d/c planning CHART REVIEW> 50% of time spent with exam, chart review, pt care coordination Vitals Vitals Vital Signs Date Time Temp Pulse Resp B/P (MAP) Pulse Ox O2 Delivery O2 Flow Rate FiO2 12/16/18 08:43 66 131/74 12/16/18 08:13 94 Room Air 12/16/18 07:00 97.8 16 1.0 97.8 Physical Exam General: Alert, Oriented X3, Cooperative, No acute distress Heart: Regular rate (SR no ectopies), Normal S1, Normal S2, No murmurs Lungs: Other (diminished, a few end exp wheezing, better air movement ) Abdomen: Normal bowel sounds, Soft, No tenderness Extremities: No cyanosis, No edema Skin: No breakdown, No significant lesion Labs LABS Laboratory Tests Test 12/15/18 13:33 O2 Saturation 93 % (92-99) Arterial Blood pH 7.39 (7.35-7.45) Arterial Blood pCO2 at Patient Temp 42 mmHg (35-46) Arterial Blood pO2 at Patient Temp 67 mmHg (65-108) Arterial Blood HCO3 25 mmol/L (21-28) Arterial Blood Base Excess 0 mmol/L (-3-3) Oxyhemoglobin 92.8 % Methemoglobin 0.3 % (0.0-1.9) Carbon Monoxide, Quantitative 0.3 % (0.0-1.9) FiO2 21 Assessment and Plan Assessmemt and Plan Problems Medical Problems: (1) Chest pain Status: Acute (2) COPD exacerbation Status: Acute Comment Review of Relevant I have reviewed the following items aron (where applicable) has been applied. Labs Laboratory Tests Test 12/15/18 04:45 12/15/18 13:33 White Blood Count 6.3 x10^3/uL (4.0-11.0) Red Blood Count 4.04 x10^6/uL (3.50-5.40) Hemoglobin 11.4 g/dL (12.0-15.5) Hematocrit 35.0 % (36.0-47.0) Mean Corpuscular Volume 87 fL (79-100) Mean Corpuscular Hemoglobin 28 pg (25-35) Mean Corpuscular Hemoglobin Concent 33 g/dL (31-37) Red Cell Distribution Width 14.0 % (11.5-14.5) Platelet Count 145 x10^3/uL (140-400) Neutrophils (%) (Auto) 58 % (31-73) Lymphocytes (%) (Auto) 33 % (24-48) Monocytes (%) (Auto) 8 % (0-9) Eosinophils (%) (Auto) 1 % (0-3) Basophils (%) (Auto) 0 % (0-3) Neutrophils # (Auto) 3.6 x10^3uL (1.8-7.7) Lymphocytes # (Auto) 2.1 x10^3/uL (1.0-4.8) Monocytes # (Auto) 0.5 x10^3/uL (0.0-1.1) Eosinophils # (Auto) 0.0 x10^3/uL (0.0-0.7) Basophils # (Auto) 0.0 x10^3/uL (0.0-0.2) Sodium Level 143 mmol/L (136-145) Potassium Level 4.1 mmol/L (3.5-5.1) Chloride Level 107 mmol/L (98-107) Carbon Dioxide Level 28 mmol/L (21-32) Anion Gap 8 (6-14) Blood Urea Nitrogen 21 mg/dL (7-20) Creatinine 0.8 mg/dL (0.6-1.0) Estimated GFR (Cockcroft-Gault) 70.5 BUN/Creatinine Ratio 26 (6-20) Glucose Level 105 mg/dL (70-99) Calcium Level 9.1 mg/dL (8.5-10.1) Total Bilirubin 0.2 mg/dL (0.2-1.0) Aspartate Amino Transf (AST/SGOT) 12 U/L (15-37) Alanine Aminotransferase (ALT/SGPT) 22 U/L (14-59) Alkaline Phosphatase 73 U/L (46-116) Total Protein 5.7 g/dL (6.4-8.2) Albumin 3.1 g/dL (3.4-5.0) Albumin/Globulin Ratio 1.2 (1.0-1.7) O2 Saturation 93 % (92-99) Arterial Blood pH 7.39 (7.35-7.45) Arterial Blood pCO2 at Patient Temp 42 mmHg (35-46) Arterial Blood pO2 at Patient Temp 67 mmHg (65-108) Arterial Blood HCO3 25 mmol/L (21-28) Arterial Blood Base Excess 0 mmol/L (-3-3) Oxyhemoglobin 92.8 % Methemoglobin 0.3 % (0.0-1.9) Carbon Monoxide, Quantitative 0.3 % (0.0-1.9) FiO2 21 Laboratory Tests Test 12/15/18 13:33 O2 Saturation 93 % (92-99) Arterial Blood pH 7.39 (7.35-7.45) Arterial Blood pCO2 at Patient Temp 42 mmHg (35-46) Arterial Blood pO2 at Patient Temp 67 mmHg (65-108) Arterial Blood HCO3 25 mmol/L (21-28) Arterial Blood Base Excess 0 mmol/L (-3-3) Oxyhemoglobin 92.8 % Methemoglobin 0.3 % (0.0-1.9) Carbon Monoxide, Quantitative 0.3 % (0.0-1.9) FiO2 21 Microbiology 12/12/18 Blood Culture - Preliminary, Resulted NO GROWTH AFTER 3 DAYS Medications Current Medications Aspirin (Vicky Aspirin) 325 mg 1X ONCE PO Last administered on 12/12/18at 17:01; Start 12/12/18 at 16:15; Stop 12/12/18 at 16:18; Status DC Nitroglycerin (Nitrostat) 0.4 mg PRN Q5MIN PRN SL CP 08/08, 2ND CHOICE Last administered on 12/12/18at 17:02; Start 12/12/18 at 16:15; Stop 12/13/18 at 16:14; Status DC Morphine Sulfate (Morphine Sulfate) 2 mg PRN Q15MIN PRN IV/SQ PAIN GREATER THAN 3/10 Last administered on 12/12/18at 17:47; Start 12/12/18 at 16:15; Stop 12/13/18 at 10:19; Status DC Albuterol/ Ipratropium (Duoneb) 3 ml 1X ONCE NEB Last administered on 12/13/18at 21:08; Start 12/12/18 at 20:30; Stop 12/12/18 at 20:31; Status DC Methylprednisolone Sodium Succinate (SOLU-Medrol 125MG VIAL) 125 mg 1X ONCE IV Last administered on 12/12/18at 21:34; Start 12/12/18 at 20:30; Stop 12/12/18 at 20:31; Status DC Ondansetron HCl (Zofran) 4 mg PRN Q8HRS PRN IV NAUSEA/VOMITING Last administered on 12/12/18at 22:41; Start 12/12/18 at 20:30; Stop 12/13/18 at 20:29; Status DC Morphine Sulfate (Morphine Sulfate) 2 mg PRN Q2HR PRN IV PAIN; Start 12/12/18 at 20:30; Stop 12/13/18 at 20:29; Status DC Acetaminophen (Tylenol) 650 mg PRN Q4HRS PRN PO FEVER Last administered on 12/13/18at 18:18; Start 12/12/18 at 20:30; Stop 12/13/18 at 20:29; Status DC Albuterol/ Ipratropium (Duoneb) 3 ml RTQID NEB Last administered on 12/13/18at 20:00; Start 12/13/18 at 08:00; Stop 12/14/18 at 07:59; Status DC Aspirin (Ecotrin) 81 mg DAILY PO Last administered on 12/16/18at 08:41; Start 12/13/18 at 09:00 Ergocalciferol (Vitamin D2) 50,000 unit WEEKLY PO ; Start 12/19/18 at 09:00 Losartan Potassium (Cozaar) 100 mg DAILY PO Last administered on 12/15/18at 09:15; Start 12/13/18 at 09:00 Metoprolol Tartrate (Lopressor) 25 mg BID PO Last administered on 12/16/18 08:43; Start 12/13/18 at 09:00 Latanoprost (Xalatan) 1 drop QHS OU Last administered on 12/15/18 22:33; Start 12/13/18 at 21:00 Budesonide (Pulmicort) 0.5 mg RTBID NEB Last administered on 12/16/18 08:07; Start 12/13/18 at 08:00 Doxycycline Hyclate (Vibra-Tab) 100 mg BID PO Last administered on 12/16/18 08:41; Start 12/12/18 at 22:30 Prednisone (Prednisone) 20 mg DAILY PO Last administered on 12/16/18 08:41; Start 12/13/18 at 09:00 Multi-Ingredient Mouthwash/Gargle (Gi Cocktail) 20 ml PRN QID PRN PO CHEST PAIN, 1ST CHOICE Last administered on 12/12/18 23:24; Start 12/12/18 at 23:15 Enoxaparin Sodium (Lovenox 30mg Syringe) 30 mg Q24H SQ ; Start 12/12/18 at 23:30; Stop 12/13/18 at 10:20; Status DC Enoxaparin Sodium (Lovenox 40mg Syringe) 40 mg Q24H SQ Last administered on 12/15/18 22:38; Start 12/13/18 at 21:00 Lactobacillus Rhamnosus (Culturelle) 1 cap BID PO Last administered on 12/16/18 08:41; Start 12/13/18 at 21:00 Nicotine (Nicoderm Cq 14mg) 1 patch PRN DAILY PRN TD SMOKING CESSATION Last administered on 12/16/18 08:43; Start 12/13/18 at 14:30 Ibuprofen (Motrin) 600 mg PRN Q6HRS PRN PO INFLAMMATION Last administered on 12/14/18 02:29; Start 12/14/18 at 02:15 Albuterol/ Ipratropium (Duoneb) 3 ml RTQID NEB Last administered on 12/16/18 08:06; Start 12/14/18 at 12:00 Pantoprazole Sodium (Protonix) 40 mg DAILYAC PO Last administered on 5/20/19at 08:51; Start 12/15/18 at 07:30 Pantoprazole Sodium (Protonix) 40 mg 1X ONCE PO Last administered on 12/14/18at 09:06; Start 12/14/18 at 08:15; Stop 12/14/18 at 08:16; Status DC Iohexol (Omnipaque 350 Mg/ml) 90 ml 1X ONCE IV Last administered on 12/14/18at 10:00; Start 12/14/18 at 08:45; Stop 12/14/18 at 08:46; Status DC Info (CONTRAST GIVEN -- Rx MONITORING) 1 each PRN DAILY PRN MC SEE COMMENTS; Start 12/14/18 at 09:00; Stop 12/16/18 at 08:59; Status DC Iohexol (Omnipaque 350 Mg/ml) 90 ml 1X ONCE IV ; Start 12/14/18 at 09:45; Stop 12/14/18 at 09:46; Status DC Alprazolam (Xanax) 0.25 mg PRN QHS PRN PO ANXIETY / AGITATION Last administered on 12/15/18at 22:33; Start 12/14/18 at 22:30 Active Scripts Active Tessalon Perle (Benzonatate) 100 Mg Capsule 21 Cap PO TID Reported Proair Hfa Inhaler (Albuterol Sulfate) 8.5 Gm Hfa.aer.ad 2 Puff INH PRN Q6HRS PRN Alprazolam 0.5 Mg Tablet 0.5 Mg PO PRN Q12HR PRN Aspir-Low (Aspirin) 81 Mg Tablet.dr 1 Tab PO DAILY Vitamin D2 (Ergocalciferol (Vitamin D2)) 50,000 Unit Capsule 50,000 Unit PO WEEKLY Latanoprost 2.5 Ml Drops 1 Drop EACHEYE QHS Metoprolol Tartrate 25 Mg Tablet 25 Mg PO BID 1/2 tablet twice daily Losartan Potassium (Losartan Potassium) 25 Mg Tablet 100 Mg PO DAILY Vitals/I & O Vital Sign - Last 24 Hours 12/15/18 12/15/18 12/15/18 12/15/18 11:02 12:02 15:12 16:29 Temp 98.2 98.7 98.2 98.7 Pulse 64 59 Resp 18 18 B/P (MAP) 133/72 (92) 116/63 (80) Pulse Ox 98 97 95 O2 Delivery Nasal Cannula Nasal Cannula Nasal Cannula Room Air O2 Flow Rate 2.0 1.0 2.0 12/15/18 12/15/18 12/15/18 12/15/18 19:50 20:00 20:36 20:37 Temp 98.6 98.6 Pulse 59 Resp 20 B/P (MAP) 117/63 (81) Pulse Ox 94 O2 Delivery Room Air Nasal Cannula Room Air Room Air O2 Flow Rate 1.0 12/15/18 12/15/18 12/16/18 12/16/18 21:00 23:00 03:35 07:00 Temp 98.2 97.9 97.8 98.2 97.9 97.8 Pulse 66 67 69 66 Resp 20 18 16 B/P (MAP) 117/63 115/57 (76) 129/58 (81) 131/74 (93) Pulse Ox 96 96 92 O2 Delivery Nasal Cannula Nasal Cannula Nasal Cannula O2 Flow Rate 1.0 1.0 1.0 12/16/18 12/16/18 12/16/18 08:10 08:13 08:43 Pulse 66 B/P (MAP) 131/74 Pulse Ox 94 94 O2 Delivery Room Air Room Air Intake and Output 12/15/18 12/15/18 12/16/18 15:00 23:00 07:00 Intake Total 360 ml 780 ml 400 ml Balance 360 ml 780 ml 400 ml MONSE FERNANDO MD December 16, 2018 09:57
[2018-12-16 11:00] VITALS: BP 121/63
--- NOTE | 2018-12-16 11:08 | PDOC3 ---
Discharge Summary Date of Admission: December 12, 2018 Date of Discharge: December 16, 2018 Follow-Up: 3-5 days Admitting Diagnosis comment: discharge dx A/P: acute hypoxic respiratory failure Chest pain - likely pleuritic from COPD exacerbation, but with age, gender and smoking will trend troponin, EKG reviewed Acute COPD exacerbation - with productive cough, will start on nebs, steroids, doxycycline Dyspnea with acute hypoxic respiratory failure secondary to acute exacerbation of chronic obstructive pulmonary disease HTN - cont home meds Abdominal pain - will give GI cocktail. she states pepto usually helps Anxiety - cont home meds Chest pain with atypical features and most probably musculoskeletal Smoker for 40 years, one and half pack per day and continues to smoke cigarettes - counseled on cessation OFFERED CLASSES HERE - PFTs as an outpatient. - 6-minute walk test at the time of discharge to assess for home oxygen// needs.ok continue o2 at hs FEN - General diet PPX - Lovenox FULL CODE Inpatient for acute copd exacerbation with chest pain, needs O2 38 MIN PT EXAM,d/c planning CHART REVIEW> 50% of time spent with exam, chart review, pt care coordination Vitals Vital Signs Date Time Temp Pulse Resp B/P (MAP) Pulse Ox O2 Delivery O2 Flow Rate FiO2 12/16/18 08:43 66 131/74 12/16/18 08:13 94 Room Air 12/16/18 07:00 97.8 16 1.0 97.8 Physical Exam General: Alert, Oriented X3, Cooperative, No acute distress Heart: Regular rate (SR no ectopies), Normal S1, Normal S2, No murmurs Lungs: Other (diminished, a few end exp wheezing, better air movement ) Abdomen: Normal bowel sounds, Soft, No tenderness Extremities: No cyanosis, No edema Skin: No breakdown, No significant lesion Ms Harmon is a 73 year old female with history of hypertension, COPD, current smoker who presents to the ED today complaining of a productive cough for 2 days as well as chest pain rated at 4 out of 10 described as achiness. Patient states that achiness in the chest is worse when she is coughing. Denies any fever. Denies anything specifically relieving the achiness. She states she was previously told to be on oxygen but typically doesn't use it as prescribed. She states she has chronic shortness of breath from COPD. In ED was notably <88% on room air and breathing 20 times per minute with tripoding and some intercostal retractions which improved slightly with steroids and nebulizers, was then called for admission. FINAL DIAGNOSIS Problems Medical Problems: (1) Chest pain Status: Acute (2) COPD exacerbation Status: Acute Brief Hospital Course Ms. Harmon is a 73 old [sex] who presented with [acute hypoxic resp failure ] CONDITION AT DISCHARGE: Improved Discharge Medications Current Medications Aspirin (Vicky Aspirin) 325 mg 1X ONCE PO Last administered on 12/12/18at 17:01; Start 12/12/18 at 16:15; Stop 12/12/18 at 16:18; Status DC Nitroglycerin (Nitrostat) 0.4 mg PRN Q5MIN PRN SL CP 08/08, 2ND CHOICE Last administered on 12/12/18at 17:02; Start 12/12/18 at 16:15; Stop 12/13/18 at 16:14; Status DC Morphine Sulfate (Morphine Sulfate) 2 mg PRN Q15MIN PRN IV/SQ PAIN GREATER THAN 3/10 Last administered on 12/12/18at 17:47; Start 12/12/18 at 16:15; Stop 12/13/18 at 10:19; Status DC Albuterol/ Ipratropium (Duoneb) 3 ml 1X ONCE NEB Last administered on 12/13/18at 21:08; Start 12/12/18 at 20:30; Stop 12/12/18 at 20:31; Status DC Methylprednisolone Sodium Succinate (SOLU-Medrol 125MG VIAL) 125 mg 1X ONCE IV Last administered on 12/12/18at 21:34; Start 12/12/18 at 20:30; Stop 12/12/18 at 20:31; Status DC Ondansetron HCl (Zofran) 4 mg PRN Q8HRS PRN IV NAUSEA/VOMITING Last administered on 12/12/18at 22:41; Start 12/12/18 at 20:30; Stop 12/13/18 at 20:29; Status DC Morphine Sulfate (Morphine Sulfate) 2 mg PRN Q2HR PRN IV PAIN; Start 12/12/18 at 20:30; Stop 12/13/18 at 20:29; Status DC Acetaminophen (Tylenol) 650 mg PRN Q4HRS PRN PO FEVER Last administered on 12/13/18 18:18; Start 12/12/18 at 20:30; Stop 12/13/18 at 20:29; Status DC Albuterol/ Ipratropium (Duoneb) 3 ml RTQID NEB Last administered on 12/13/18at 20:00; Start 12/13/18 at 08:00; Stop 12/14/18 at 07:59; Status DC Aspirin (Ecotrin) 81 mg DAILY PO Last administered on 12/16/18at 08:41; Start 12/13/18 at 09:00 Ergocalciferol (Vitamin D2) 50,000 unit WEEKLY PO ; Start 12/19/18 at 09:00 Losartan Potassium (Cozaar) 100 mg DAILY PO Last administered on 12/15/18 09:15; Start 12/13/18 at 09:00 Metoprolol Tartrate (Lopressor) 25 mg BID PO Last administered on 12/16/18 08:43; Start 12/13/18 at 09:00 Latanoprost (Xalatan) 1 drop QHS OU Last administered on 12/15/18at 22:33; Start 12/13/18 at 21:00 Budesonide (Pulmicort) 0.5 mg RTBID NEB Last administered on 12/16/18at 08:07; Start 12/13/18 at 08:00 Doxycycline Hyclate (Vibra-Tab) 100 mg BID PO Last administered on 12/16/18 08:41; Start 12/12/18 at 22:30 Prednisone (Prednisone) 20 mg DAILY PO Last administered on 12/16/18at 08:41; Start 12/13/18 at 09:00 Multi-Ingredient Mouthwash/Gargle (Gi Cocktail) 20 ml PRN QID PRN PO CHEST FABRICIO N, 1ST CHOICE Last administered on 12/12/18at 23:24; Start 12/12/18 at 23:15 Enoxaparin Sodium (Lovenox 30mg Syringe) 30 mg Q24H SQ ; Start 12/12/18 at 23:30; Stop 12/13/18 at 10:20; Status DC Enoxaparin Sodium (Lovenox 40mg Syringe) 40 mg Q24H SQ Last administered on 12/15/18at 22:38; Start 12/13/18 at 21:00 Lactobacillus Rhamnosus (Culturelle) 1 cap BID PO Last administered on 08:41; Start 12/13/18 at 21:00 Nicotine (Nicoderm Cq 14mg) 1 patch PRN DAILY PRN TD SMOKING CESSATION Last administered on 12/16/18 08:43; Start 12/13/18 at 14:30 Ibuprofen (Motrin) 600 mg PRN Q6HRS PRN PO INFLAMMATION Last administered on 12/14/18at 02:29; Start 12/14/18 at 02:15 Albuterol/ Ipratropium (Duoneb) 3 ml RTQID NEB Last administered on 12/16/18 08:06; Start 12/14/18 at 12:00 Pantoprazole Sodium (Protonix) 40 mg DAILYAC PO Last administered on 12/16/18 08:51; Start 12/15/18 at 07:30 Pantoprazole Sodium (Protonix) 40 mg 1X ONCE PO Last administered on 12/14/18at 09:06; Start 12/14/18 at 08:15; Stop 12/14/18 at 08:16; Status DC Iohexol (Omnipaque 350 Mg/ml) 90 ml 1X ONCE IV Last administered on 12/14/18at 10:00; Start 12/14/18 at 08:45; Stop 12/14/18 at 08:46; Status DC Info (CONTRAST GIVEN -- Rx MONITORING) 1 each PRN DAILY PRN MC SEE COMMENTS; Start 12/14/18 at 09:00; Stop 12/16/18 at 08:59; Status DC Iohexol (Omnipaque 350 Mg/ml) 90 ml 1X ONCE IV ; Start 12/14/18 at 09:45; Stop 12/14/18 at 09:46; Status DC Alprazolam (Xanax) 0.25 mg PRN QHS PRN PO ANXIETY / AGITATION Last administered on 12/15/18at 22:33; Start 12/14/18 at 22:30 Active Scripts Active Tessalon Perle (Benzonatate) 100 Mg Capsule 21 Cap PO TID Reported Proair Hfa Inhaler (Albuterol Sulfate) 8.5 Gm Hfa.aer.ad 2 Puff INH PRN Q6HRS PRN Alprazolam 0.5 Mg Tablet 0.5 Mg PO PRN Q12HR PRN Aspir-Low (Aspirin) 81 Mg Tablet.dr 1 Tab PO DAILY Vitamin D2 (Ergocalciferol (Vitamin D2)) 50,000 Unit Capsule 50,000 Unit PO WEEKLY Latanoprost 2.5 Ml Drops 1 Drop EACHEYE QHS Metoprolol Tartrate 25 Mg Tablet 25 Mg PO BID 1/2 tablet twice daily Losartan Potassium (Losartan Potassium) 25 Mg Tablet 100 Mg PO DAILY Vital Signs Vital Signs Date Time Temp Pulse Resp B/P (MAP) Pulse Ox O2 Delivery O2 Flow Rate FiO2 12/16/18 08:43 66 131/74 12/16/18 08:13 94 Room Air 12/16/18 07:50 1.0 12/16/18 07:00 97.8 16 97.8 Labs Laboratory Tests Test 12/15/18 04:45 12/15/18 13:33 White Blood Count 6.3 x10^3/uL (4.0-11.0) Red Blood Count 4.04 x10^6/uL (3.50-5.40) Hemoglobin 11.4 g/dL (12.0-15.5) Hematocrit 35.0 % (36.0-47.0) Mean Corpuscular Volume 87 fL (79-100) Mean Corpuscular Hemoglobin 28 pg (25-35) Mean Corpuscular Hemoglobin Concent 33 g/dL (31-37) Red Cell Distribution Width 14.0 % (11.5-14.5) Platelet Count 145 x10^3/uL (140-400) Neutrophils (%) (Auto) 58 % (31-73) Lymphocytes (%) (Auto) 33 % (24-48) Monocytes (%) (Auto) 8 % (0-9) Eosinophils (%) (Auto) 1 % (0-3) Basophils (%) (Auto) 0 % (0-3) Neutrophils # (Auto) 3.6 x10^3uL (1.8-7.7) Lymphocytes # (Auto) 2.1 x10^3/uL (1.0-4.8) Monocytes # (Auto) 0.5 x10^3/uL (0.0-1.1) Eosinophils # (Auto) 0.0 x10^3/uL (0.0-0.7) Basophils # (Auto) 0.0 x10^3/uL (0.0-0.2) Sodium Level 143 mmol/L (136-145) Potassium Level 4.1 mmol/L (3.5-5.1) Chloride Level 107 mmol/L (98-107) Carbon Dioxide Level 28 mmol/L (21-32) Anion Gap 8 (6-14) Blood Urea Nitrogen 21 mg/dL (7-20) Creatinine 0.8 mg/dL (0.6-1.0) Estimated GFR (Cockcroft-Gault) 70.5 BUN/Creatinine Ratio 26 (6-20) Glucose Level 105 mg/dL (70-99) Calcium Level 9.1 mg/dL (8.5-10.1) Total Bilirubin 0.2 mg/dL (0.2-1.0) Aspartate Amino Transf (AST/SGOT) 12 U/L (15-37) Alanine Aminotransferase (ALT/SGPT) 22 U/L (14-59) Alkaline Phosphatase 73 U/L (46-116) Total Protein 5.7 g/dL (6.4-8.2) Albumin 3.1 g/dL (3.4-5.0) Albumin/Globulin Ratio 1.2 (1.0-1.7) O2 Saturation 93 % (92-99) Arterial Blood pH 7.39 (7.35-7.45) Arterial Blood pCO2 at Patient Temp 42 mmHg (35-46) Arterial Blood pO2 at Patient Temp 67 mmHg (65-108) Arterial Blood HCO3 25 mmol/L (21-28) Arterial Blood Base Excess 0 mmol/L (-3-3) Oxyhemoglobin 92.8 % Methemoglobin 0.3 % (0.0-1.9) Carbon Monoxide, Quantitative 0.3 % (0.0-1.9) FiO2 21 Laboratory Tests Test 12/15/18 13:33 O2 Saturation 93 % (92-99) Arterial Blood pH 7.39 (7.35-7.45) Arterial Blood pCO2 at Patient Temp 42 mmHg (35-46) Arterial Blood pO2 at Patient Temp 67 mmHg (65-108) Arterial Blood HCO3 25 mmol/L (21-28) Arterial Blood Base Excess 0 mmol/L (-3-3) Oxyhemoglobin 92.8 % Methemoglobin 0.3 % (0.0-1.9) Carbon Monoxide, Quantitative 0.3 % (0.0-1.9) FiO2 21 Allergies Allergies Coded Allergies Type Severity Reaction Last Updated Verified latex Allergy Intermediate Itching 09/04/18 Yes Disposition/Orders: D/C to Home Patient Instructions d/c [email or web address] 38 min MONSE FERNANDO MD December 16, 2018 11:08
[2018-12-16] MEDS ORDERED: Lido:Maalox 1:1 PO (11:15)
[2018-12-16] MEDS ORDERED: Nicotine 14MG TD (11:15)
[2018-12-16] MEDS ORDERED: BUDE0.5A NEB (11:15)
[2018-12-16] MEDS ORDERED: LACT1CAP19 PO (11:15)
[2018-12-16] MEDS ORDERED: IPRA3AMP29 NEB (11:15)
[2018-12-16] MEDS ORDERED: PRED20TA PO (11:15)
[2018-12-16] MEDS ORDERED: Pantoprazole PO (11:15)
[2018-12-16] MEDS ORDERED: DOXY100T PO (11:15)
--- NOTE | 2018-12-16 11:17 | DISCH ---
DISCHARGE INSTRUCTIONS Condition on Discharge Condition on Discharge: Stable Activity After Discharge Activity Instructions for Disc: Activity as tolerated Lifting Instructions after Dis: No heavy lifting, No pulling or pushing Exercise Instruction after Dis: Walk 10 min, 3 x per day, Progress as tolerated Driving Instructions after Dis: Do not drive today Weight Bearing Status after Di: As tolerated Diet after Discharge Diet after Discharge: Cardiac Additional Diet Restrictions: Low carb Diet Texture: Regular Liquid Texture: Thin Liquid Checks after Discharge Checks after discharge: Check blood press - daily Contacting the DR. after DC Call your doctor for: If your condition worsens Treatment/Equipment after DC Discharge Respiratory Equipmen: Oxygen MONSE FERNANDO MD December 16, 2018 11:17
--- NOTE | 2018-12-16 14:33 | NUR ---
Discharge Note: ANA GERARD Discharge instructions and discharge home medications reviewed with Patient and a copy given. All questions have been answered and understanding verbalized. The following instructions and handouts were given: CP, COPD, prednisone, diet, hyper-hypotension, smoking cessation, follow up appointments. Discontinued lines and drains: IV removed, no lines present. Patient discharged to home left via wheelchair with daughter.
[2018-12-19] MEDS ORDERED: ERGOCALCIFEROL (VITAMIN D2) 50,000 UNIT CAPSULE. PO SCH (09:00)
[2018-12-23] MEDS ORDERED: HYDR-3164 PO (09:19)
== END 2018-12-16 13:55 | disposition home or self-care (01) | DRG 189 ==
LOC: ER 15:24 → 2 SOUTH 19:34
PROVIDERS: ADMIT Internal Medicine; ATTEND Internal Medicine
DX: J96.21 Acute and chronic respiratory failure with hypoxia (principal); J44.1 Chronic obstructive pulmonary disease with (acute) exacerbation; J44.0 Chronic obstructive pulmonary disease with (acute) lower respiratory infection; J20.9 Acute bronchitis, unspecified; K21.9 Gastro-esophageal reflux disease without esophagitis; M19.90 Unspecified osteoarthritis, unspecified site; F41.9 Anxiety disorder, unspecified; I10 Essential (primary) hypertension; H40.9 Unspecified glaucoma; F17.210 Nicotine dependence, cigarettes, uncomplicated; Z99.81 Dependence on supplemental oxygen; Z91.040 Latex allergy status; Z82.49 Family history of ischemic heart disease and other diseases of the circulatory system; Z71.6 Tobacco abuse counseling; Z90.49 Acquired absence of other specified parts of digestive tract; Z98.51 Tubal ligation status
CPT/HCPCS: 36415; 36600; 71046; 71275; 80048; 80053; 80061; 80307; 81001; 82553; 82805; 83735; 83880; 84443; 84484; 85025; 85610; 87040; 93005; 93306; 94618; 94640; 94760; 96374; J1650; J2270; J2405; J2930; J7512; J7620; J7626; Q9967; 99285-25

== ENCOUNTER 2018-12-26 12:20 | Inpatient (IN) | payer MEDICARE ==
[~2018-12-26] VITALS: Ht 165.1 cm; Wt 64.4 kg
[~2018-12-26 12:20] MED LIST changes: +ALBU2.5V8 INH; +BUDE0.5A NEB; +DOXY100T PO; +HYDR-3164 PO; +IPRA3AMP29 NEB; +LACT1CAP19 PO; +Lido:Maalox 1:1 PO; +Nicotine 14MG TD; +PRED20TA PO; +Pantoprazole PO
[2018-12-26] MEDS ORDERED: NICOTINE 21MG PATCH. TD STA (12:40)
[2018-12-26] MEDS ORDERED: IPRATRPIUM/ALBUTEROL 0.5/2.5MG 3 ML NEBU. NEB ONE (12:45)
[2018-12-26] MEDS ORDERED: methylPREDNISolone SOD SUCC PF 125 MG/2 ML VIAL. IV ONE (12:45)
[2018-12-26 13:04] LABS: BASO # 0.1 x10^3/uL (0.0-0.2); BASO % 1 % (0-3); EOS # 0.4 x10^3/uL (0.0-0.7); EOS % 3 % (0-3); HEMATOCRIT 40.2 % (36.0-47.0); LYMPH # 1.2 x10^3/uL (1.0-4.8); LYMPH % 9 % (24-48); MEAN CORPUSCULAR HEMOGLOBIN 28 pg (25-35); MEAN CORPUSCULAR HGB CONC 32 g/dL (31-37); MEAN CORPUSCULAR VOLUME 87 fL (79-100); MONO # 0.9 x10^3/uL (0.0-1.1); MONO % 7 % (0-9); NEUT % 81 % (31-73); PLATELET COUNT 268 x10^3/uL (140-400); RED BLOOD COUNT 4.64 x10^6/uL (3.50-5.40); RED CELL DISTRIBUTION WIDTH 13.9 % (11.5-14.5); WHITE BLOOD COUNT 13.5 x10^3/uL (4.0-11.0)
[2018-12-26 13:14] LABS: PROTHROMBIN TIME PATIENT 13.4 SEC (11.7-14.0)
--- NOTE | 2018-12-26 13:20 | RAD ---
PORTABLE CHEST 1V Clinical indications: Shortness of air. COMPARISON: December 12, 2018. Findings: No acute lung infiltrate or pleural effusion or pulmonary edema or lung mass or pneumothorax is seen. The heart size, pulmonary vasculature, mediastinum and both alana are unremarkable. Impression: No acute radiographic abnormality is seen. Electronically signed by: Vivek Naidu MD (12/26/2018 1:17 PM) [id number]
[2018-12-26] MEDS: ALPRAZolam 0.5 MG TABLET PO ONE ×2 (13:23→13:30)
[2018-12-26 13:24] LABS: CALCIUM 9.4 mg/dL (8.5-10.1); CREATININE 0.7 mg/dL (0.6-1.0); GFR 82.3; POTASSIUM 4.3 mmol/L (3.5-5.1)
--- NOTE | 2018-12-26 13:28 | EKG ---
[facility] [address] [place] [address] Test Date: 2018-12-26 Test Time: 12:55:15 Pat Name: ANA GERARD Department: Room: Gender: F [employer] Operations Engineer: : [id number] Requested By: FLAQUITA SANTAMARIA Order Number: [id number] Reading MD: Measurements Intervals [place] Rate: 70 P: 75 UT: 180 QRS: 50 QRSD: 88 T: 52 QT: 370 QTc: 402 Interpretive Statements SINUS RHYTHM QRS(T) CONTOUR ABNORMALITY CONSISTENT WITH ANTEROSEPTAL INFARCT AGE UNDETERMINED ABNORMAL ECG No previous ECG available for comparison
[2018-12-26 13:29] LABS: ALBUMIN 3.5 g/dL (3.4-5.0); ALBUMIN/GLOBULIN RATIO 1.2 (1.0-1.7); MAGNESIUM 2.1 mg/dL (1.8-2.4); TOTAL BILIRUBIN 0.4 mg/dL (0.2-1.0); TOTAL PROTEIN 6.4 g/dL (6.4-8.2)
[2018-12-26] MEDS ORDERED: ALBUTEROL SULFATE 2.5 MG/3 ML NEBU. CONT NEB ONE (13:30)
[2018-12-26 13:37] LABS: CREATINE KINASE 41 U/L (26-192)
--- NOTE | 2018-12-26 14:34 | PHYS DOC ---
Past Medical History Past Medical History: Anxiety, COPD, Hypertension, Other Additional Past Medical Histor: chronic cough, glaucoma, tremors Past Surgical History: Cholecystectomy, Other Additional Past Surgical Histo: left kidney surgery (minor) Additional Information: 1 ppd Alcohol Use: None Drug Use: None Adult General Chief Complaint Chief Complaint: SHORTNESS OF BREATH HPI HPI Patient is a 73 year old female with history of COPD on oxygen 2 L at home, current smoker, anxiety, hypertension, who presents to the ED today complaining of cough and shortness of breath since yesterday. Patient states she has tried her inhaler with no relief. Denies any fever. Denies any chest pain. Review of Systems Review of Systems Constitutional: Denies fever or chills [] Eyes: Denies change in visual acuity, redness, or eye pain [] HENT: Denies nasal congestion or sore throat [] Respiratory: Reports cough and shortness of breath [] Cardiovascular: No additional information not addressed in HPI [] GI: Denies abdominal pain, nausea, vomiting, bloody stools or diarrhea [] : Denies dysuria or hematuria [] Musculoskeletal: Denies back pain or joint pain [] Integument: Denies rash or skin lesions [] Neurologic: Denies headache, focal weakness or sensory changes [] All other systems were reviewed and found to be within normal limits, except as documented in this note. Current Medications Current Medications Current Medications Medications (Trade) Dose Ordered Sig/Vincent Start Time Stop Time Status Last Admin Dose Admin Albuterol Sulfate (Ventolin Neb Soln) 10 mg 1X ONCE 12/26/18 13:30 12/26/18 13:31 DC 12/26/18 13:29 10 MG Albuterol/ Ipratropium (Duoneb) 3 ml 1X ONCE 12/26/18 12:45 12/26/18 12:47 DC 12/26/18 13:03 3 ML Alprazolam (Xanax) 0.5 mg 1X ONCE 12/26/18 13:30 12/26/18 13:31 DC Methylprednisolone Sodium Succinate (SOLU-Medrol 125MG VIAL) 125 mg 1X ONCE 12/26/18 12:45 12/26/18 12:47 DC 12/26/18 13:14 125 MG Nicotine (Nicoderm Cq 21mg) 1 patch 1X STAT 12/26/18 12:40 12/26/18 12:47 DC 12/26/18 13:13 1 PATCH Allergies Allergies Allergies Coded Allergies Type Severity Reaction Last Updated Verified latex Allergy Intermediate Itching 09/04/18 Yes Physical Exam Physical Exam Constitutional: Well developed, well nourished, no acute distress, non-toxic appearance. [] HENT: Normocephalic, atraumatic, bilateral external ears normal, oropharynx moist, no oral exudates, nose normal. [] Eyes: PERRLA, EOMI, conjunctiva normal, no discharge. [] Neck: Normal range of motion, no tenderness, supple, no stridor. [] Cardiovascular:Heart rate regular rhythm, no murmur [] Lungs & Thorax: Patient is short of breath on arrival to the ED. Lungs are tight. Abdomen: Bowel sounds normal, soft, no tenderness, no masses, no pulsatile masses. [] Skin: Warm, dry, no erythema, no rash. [] Back: No tenderness, no CVA tenderness. [] Extremities: No tenderness, no cyanosis, no clubbing, ROM intact, no edema. [] Neurologic: Alert and oriented X 3, normal motor function, normal sensory function, no focal deficits noted. [] Psychologic: Appears anxious Current Patient Data Vital Signs Vital Signs Date Time Temp Pulse Resp B/P (MAP) Pulse Ox O2 Delivery O2 Flow Rate FiO2 12/26/18 13:33 Nasal Cannula 3.0 12/26/18 13:06 93 12/26/18 12:27 98.9 78 36 149/81 (103) 98.9 Lab Values Laboratory Tests Test 12/26/18 12:40 White Blood Count 13.5 x10^3/uL (4.0-11.0) H Red Blood Count 4.64 x10^6/uL (3.50-5.40) Hemoglobin 13.0 g/dL (12.0-15.5) Hematocrit 40.2 % (36.0-47.0) Mean Corpuscular Volume 87 fL (79-100) Mean Corpuscular Hemoglobin 28 pg (25-35) Mean Corpuscular Hemoglobin Concent 32 g/dL (31-37) Red Cell Distribution Width 13.9 % (11.5-14.5) Platelet Count 268 x10^3/uL (140-400) Neutrophils (%) (Auto) 81 % (31-73) H Lymphocytes (%) (Auto) 9 % (24-48) L Monocytes (%) (Auto) 7 % (0-9) Eosinophils (%) (Auto) 3 % (0-3) Basophils (%) (Auto) 1 % (0-3) Neutrophils # (Auto) 11.0 x10^3uL (1.8-7.7) H Lymphocytes # (Auto) 1.2 x10^3/uL (1.0-4.8) Monocytes # (Auto) 0.9 x10^3/uL (0.0-1.1) Eosinophils # (Auto) 0.4 x10^3/uL (0.0-0.7) Basophils # (Auto) 0.1 x10^3/uL (0.0-0.2) Prothrombin Time 13.4 SEC (11.7-14.0) Prothrombin Time INR 1.1 (0.8-1.1) PTT 30 SEC (24-38) Sodium Level 143 mmol/L (136-145) Potassium Level 4.3 mmol/L (3.5-5.1) Chloride Level 104 mmol/L (98-107) Carbon Dioxide Level 30 mmol/L (21-32) Anion Gap 9 (6-14) Blood Urea Nitrogen 13 mg/dL (7-20) Creatinine 0.7 mg/dL (0.6-1.0) Estimated GFR (Cockcroft-Gault) 82.3 BUN/Creatinine Ratio 19 (6-20) Glucose Level 127 mg/dL (70-99) H Lactic Acid Level 0.7 mmol/L (0.4-2.0) Calcium Level 9.4 mg/dL (8.5-10.1) Magnesium Level 2.1 mg/dL (1.8-2.4) Total Bilirubin 0.4 mg/dL (0.2-1.0) Aspartate Amino Transferase (AST) 14 U/L (15-37) L Alanine Aminotransferase (ALT) 27 U/L (14-59) Alkaline Phosphatase 97 U/L (46-116) Creatine Kinase 41 U/L (26-192) Creatine Kinase MB (Mass) 1.6 ng/mL (0.0-3.6) Creatine Kinase MB Relative Index % (0-4) Troponin I Quantitative < 0.017 ng/mL (0.000-0.055) LO-Rtc-A-Type Natriuretic Peptide 419 pg/mL (0-124) H Total Protein 6.4 g/dL (6.4-8.2) Albumin 3.5 g/dL (3.4-5.0) Albumin/Globulin Ratio 1.2 (1.0-1.7) Thyroid Stimulating Hormone (TSH) 1.161 uIU/mL (0.358-3.74) Laboratory Tests 12/26/18 12:40 Laboratory Tests 12/26/18 12:40 EKG EKG 12:[address] Medeiros sinus rhythm HR 70 no STEMI[] Radiology/Procedures Radiology/Procedures []PROCEDURE: PORTABLE CHEST 1V PORTABLE CHEST 1V Clinical indications: Shortness of air. COMPARISON: December 12, 2018. Findings: No acute lung infiltrate or pleural effusion or pulmonary edema or lung mass or pneumothorax is seen. The heart size, pulmonary vasculature, mediastinum and both alana are unremarkable. Impression: No acute radiographic abnormality is seen. Electronically signed by: Jade Naidu MD (12/26/2018 1:17 PM) [id number] DICTATED and SIGNED BY: JADE NAIDU MD DATE: 12/26/18 1317 Course & Med Decision Making Course & Med Decision Making Pertinent Labs and Imaging studies reviewed. (See chart for details) This is a 73-year-old female patient well known to this ED for COPD presenting today complaining of shortness of breath and cough since yesterday. On arrival to the ED patient had increased work of breathing. We put on oxygen which she uses at home, she typically comes to the ED with no oxygen. We also gave her a DuoNeb treatment, she was still complaining of shortness of breath. Ordered a one-hour treatment. Chest x-ray is negative for pneumonia. CBC with a WBC of 13.5, CMP with no acute findings. O2 sats 93% on 3 L of oxygen. Consulted with Dr. Reed who accepted patient for admission. Patient was also advised to consider smoking cessation. Dragon Disclaimer Dragon Disclaimer This electronic medical record was generated, in whole or in part, using a voice recognition dictation system. Departure Departure Impression: Primary Impression: Smoking addiction Additional Impression: COPD exacerbation Disposition: ADMITTED INPATIENT Condition: STABLE Referrals: KAYLEY EM (PCP) Problem Qualifiers FLAQUITA SANTAMARIA APRN December 26, 2018 14:33
[2018-12-26] MEDS ORDERED: MORPHINE SULFATE 2 MG/ML VIAL. IV PRN (14:45)
[2018-12-26] MEDS ORDERED: ACETAMINOPHEN 325 MG TABLET. PO PRN (14:45)
[2018-12-26] MEDS ORDERED: ONDANSETRON PF 4 MG/2 ML VIAL. IV PRN (14:45)
[2018-12-26] MEDS ORDERED: FEXO180T81 PO (15:36)
[2018-12-26] MEDS ORDERED: FLUT9.9S NS (15:36)
[2018-12-26 15:47] VITALS: BP 140/92
[2018-12-26] MEDS ORDERED: IPRATRPIUM/ALBUTEROL 0.5/2.5MG 3 ML NEBU. NEB SCH (16:00)
--- NOTE | 2018-12-26 16:44 | NUR ---
pt had 10mg albuterol tx at [id number] in ER so 1600 tx was held CHolmesRRT
--- NOTE | 2018-12-26 16:57 | CONS ---
DATE OF CONSULTATION: 12/26/2018 PULMONARY CONSULTATION ATTENDING PHYSICIAN: Nuvia Reed DO. REASON FOR CONSULTATION: Dyspnea. HISTORY OF PRESENT ILLNESS: The patient is a 73 years old who smoked for 40 years, has not quit cigarettes and she uses oxygen at home at night time. She presented to the hospital with increasing shortness of breath. She has a cough with light green to yellow sputum production. No fever, no chills, no chest pain, no headaches, no nausea or vomiting, no diarrhea. Chest x-ray was clear. Consultation requested for further evaluation. PAST MEDICAL HISTORY: Suspect severe COPD with ongoing tobaccoism, history of glaucoma, tremors. PAST SURGICAL HISTORY: Cholecystectomy and left kidney surgery. ALLERGIES: LATEX. MEDICATIONS: Reviewed including DuoNebs. She also received steroids in the ER. SOCIAL HISTORY: Smoked for 40 years and still smokes cigarettes. FAMILY HISTORY: Noncontributory to lungs. PHYSICAL EXAMINATION: VITAL SIGNS: Reviewed. Pulse ox 90% on 2 liters. NECK: Supple. LUNGS: With bilateral expiratory wheezes. CARDIOVASCULAR: Regular rate. ABDOMEN: Soft, nontender. EXTREMITIES: With no pitting edema. LABORATORY DATA: Reviewed. White cell count 13.5, hemoglobin 13.0. BUN and creatinine normal. IMPRESSION: 1. Dyspnea with acute hypoxic respiratory failure secondary to acute exacerbation of chronic obstructive pulmonary disease. The patient uses oxygen only at night and now requiring 2 liters. 2. Acute bronchitis. No definite consolidation seen on the chest x-ray. 3. Forty years of tobaccoism. RECOMMENDATIONS: 1. Continue with present oxygen. 2. Continue DuoNebs. 3. Add empiric antibiotic. 4. Add Pulmicort. 5. Add low dose steroids. 6. Smoking cessation counseling provided and she is motivated to quit cigarettes. 7. PFTs as an outpatient. 8. She may need a 6-minute walk at the time of discharge. 9. Discussed with RN. RAGINI WILLOUGHBY MD DR: INDU/phyllis JOB#: [id number] / [id number]
[2018-12-26] MEDS: cefTRIAXone IV Push 1 GM VIAL. IVP SCH (18:23)
[2018-12-26] MEDS ORDERED: LIDO:MAALOX 1:1 20 ML SINGLE DOSE. PO PRN (18:45)
[2018-12-26 19:00] VITALS: BP 122/63
--- NOTE | 2018-12-26 19:27 | PDOC1 ---
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 Chief Complain: Shortness of breath cough History of Present Illness: HPI: This is an elderly female who continues to smoke she has end-stage COPD in fact wears oxygen at home as needed Today she's been very short of breath and coughing Her family is upset with her because his been going on for couple days and she didn't want with Clinically appears she has respiratory failure Rates her symptoms at 10 out 10 is worse with moving better with sitting still she tried increasing her home meds that and work she describes as irritating She also scheduled have an outpatient stress test for him with patient consult c ardiology and pulmonary Past Medical/Surgical History: PMH/PSH: Past Medical History: Anxiety, COPD, Hypertension, Other Additional Past Medical Histor: chronic cough, glaucoma, tremors Past Surgical History: Cholecystectomy, Other Additional Past Surgical Histo: left kidney surgery (minor) Additional Information: 1 ppd Allergies: Allergies: Coded Allergies: latex (Verified Allergy, Intermediate, Itching, 09/04/18) Family History: Family History: COPD Social History: Social Hisoty: She smokes no drinking or drugs Current Medications: Current Medications Current Medications Albuterol/ Ipratropium (Duoneb) 3 ml 1X ONCE NEB Last administered on 12/26/18at 13:03; Start 12/26/18 at 12:45; Stop 12/26/18 at 12:47; Status DC Methylprednisolone Sodium Succinate (SOLU-Medrol 125MG VIAL) 125 mg 1X ONCE IV Last administered on 12/26/18at 13:14; Start 12/26/18 at 12:45; Stop 12/26/18 at 12:47; Status DC Nicotine (Nicoderm Cq 21mg) 1 patch 1X STAT TD Last administered on 12/26/18at 13:13; Start 12/26/18 at 12:40; Stop 12/26/18 at 12:47; Status DC Albuterol Sulfate (Ventolin Neb Soln) 10 mg 1X ONCE CONT NEB Last administered on 12/26/18at 13:29; Start 12/26/18 at 13:30; Stop 12/26/18 at 13:31; Status DC Alprazolam (Xanax) 0.5 mg 1X ONCE PO ; Start 12/26/18 at 13:30; Stop 12/26/18 at 13:31; Status DC Ondansetron HCl (Zofran) 4 mg PRN Q8HRS PRN IV NAUSEA/VOMITING; Start 12/26/18 at 14:45; Stop 12/27/18 at 14:44 Morphine Sulfate (Morphine Sulfate) 2 mg PRN Q2HR PRN IV PAIN; Start 12/26/18 at 14:45; Stop 12/27/18 at 14:44 Acetaminophen (Tylenol) 650 mg PRN Q4HRS PRN PO FEVER; Start 12/26/18 at 14:45; Stop 12/27/18 at 14:44 Albuterol/ Ipratropium (Duoneb) 3 ml RTQID NEB ; Start 12/26/18 at 16:00; Stop 12/26/18 at 18:43; Status DC Budesonide (Pulmicort) 0.5 mg RTBID NEB ; Start 12/26/18 at 20:00 Ceftriaxone Sodium (Rocephin) 1 gm Q24H IVP Last administered on 12/26/18at 18:23; Start 12/26/18 at 18:00 Methylprednisolone Sodium Succinate (SOLU-Medrol 40MG VIAL) 40 mg Q8HRS IV ; Start 12/26/18 at 22:00 Alprazolam (Xanax) 0.5 mg PRN Q12HR PRN PO ANXIETY / AGITATION; Start 12/26/18 at 18:45 Aspirin (Ecotrin) 81 mg DAILY PO ; Start 12/27/18 at 09:00 Budesonide (Pulmicort) 0.5 mg RTBID NEB ; Start 12/26/18 at 20:00; Stop 12/26/18 at 20:00; Status DC Ergocalciferol (Vitamin D2) 50,000 unit WEEKLY PO ; Start 01/02/19 at 09:00 Albuterol/ Ipratropium (Duoneb) 3 ml RTQID NEB ; Start 12/26/18 at 20:00 Losartan Potassium (Cozaar) 100 mg DAILY PO ; Start 12/27/18 at 09:00 Metoprolol Tartrate (Lopressor) 25 mg BID PO ; Start 12/26/18 at 21:00 Benzonatate (Tessalon Perle) 100 mg [id number] PO ; Start 12/26/18 at 21:00 Cetirizine HCl (ZyrTEC) 10 mg DAILY PO ; Start 12/27/18 at 09:00 Fluticasone Propionate (Flonase) 2 spray DAILY NS ; Start 12/27/18 at 09:00 Latanoprost (Xalatan) 1 drop QHS OU ; Start 12/26/18 at 21:00 Multi-Ingredient Mouthwash/Gargle (Gi Cocktail) 20 ml PRN QID PRN PO CHEST PAIN; Start 12/26/18 at 18:45 Nicotine (Nicoderm Cq 14mg) 1 patch PRN DAILY PRN TD SMOKING CESSATION; Start 12/27/18 at 09:00 Pantoprazole Sodium (Protonix) 40 mg DAILYAC PO ; Start 12/27/18 at 07:30 Methylprednisolone Sodium Succinate (SOLU-Medrol 125MG VIAL) 60 mg Q8HRS IV ; Start 12/26/18 at 22:00; Stop 12/26/18 at 22:00; Status DC Active Scripts Active [place] 5-325 Tablet (Acetaminophen/Hydrocodone Bitart) 1 Each Tablet 1 Tab PO Q6- 8HRS PRN Prednisone 20 Mg Tablet 20 Mg PO DAILY 10 Days Culturelle (Lactobacillus Rhamnosus Gg) 1 Each Cap.sprink 1 Cap PO BID 30 Days [Pantoprazole] 40 MG Tablet.dr 40 Mg PO DAILYAC 30 Days [Lido:Maalox 1:1] 20 ML Oral.susp 20 Ml PO PRN QID PRN 10 Days Budesonide 0.5 Mg/2 Ml Ampul.neb 0.5 Mg NEB RTBID 30 Days [Nicotine 14MG] 1 PATCH Patch 1 Patch TD PRN DAILY PRN 30 Days Duoneb 0.5-3(2.5) Mg/3 Ml (Albuterol/Ipratropium) 3 Ml Ampul.neb 3 Ml NEB RTQID 30 Days Doxycycline Hyclate 100 Mg Tablet 100 Mg PO BID 10 Days Tessalon Perle (Benzonatate) 100 Mg Capsule 21 Cap PO TID Reported Jing Allergy (Fexofenadine Hcl) 180 Mg Tablet 1 Tab PO DAILY Flonase Allergy Relief (Fluticasone Propionate) 9.9 Ml [place].susp 2 Sprays NS DAILY Proair Hfa Inhaler (Albuterol Sulfate) 8.5 Gm Hfa.aer.ad 2 Puff INH PRN Q6HRS PRN Alprazolam 0.5 Mg Tablet 0.5 Mg PO PRN Q12HR PRN Aspir-Low (Aspirin) 81 Mg Tablet.dr 1 Tab PO DAILY Vitamin D2 (Ergocalciferol (Vitamin D2)) 50,000 Unit Capsule 50,000 Unit PO WEEKLY Latanoprost 2.5 Ml Drops 1 Drop EACHEYE QHS Metoprolol Tartrate 25 Mg Tablet 25 Mg PO BID 1/2 tablet twice daily Losartan Potassium (Losartan Potassium) 25 Mg Tablet 100 Mg PO DAILY ROS: Review of Systems Review of System REVIEW OF SYSTEMS: GENERAL: Complains of weakness SKIN: No bruising, hair changes or rashes. EYES: No blurred, double or loss of vision. NOSE AND THROAT: No history of nosebleeds, hoarseness or sore throat. HEART: Complains of chest pain LUNGS: Complains of severe shortness breath and cough GASTROINTESTINAL: Denies changes in appetite, nausea, vomiting, diarrhea or constipation. GENITOURINARY: No history of frequency, urgency, hesitancy or nocturia. NEUROLOGIC: Denies history of numbness, tingling, tremor or weakness. PSYCHIATRIC: No history of panic, anxiety or depression. ENDOCRINE: No history of heat or cold intolerance, polyuria or polydipsia. EXTREMITIES: Denies muscle weakness, joint pain, pain on walking or stiffness. Physical Exam: Vital Signs: Vital Signs Date Time Temp Pulse Resp B/P (MAP) Pulse Ox O2 Delivery O2 Flow Rate FiO2 12/26/18 16:08 Nasal Cannula 2.0 12/26/18 15:47 98.7 77 18 140/92 (108) 90 98.7 Physcial Exam: GEN.: Coughing frail HEENT: Head is normocephalic, atraumatic NECK: Supple, no JVD LUNGS: Diffuse wheezing diminished breath sounds HEART: RRR, S1, S2 present. Peripheral pulses intact ABDOMEN: Soft, nontender. Positive bowel sounds no organomegaly EXTREMITIES: Without any cyanosis, clubbing, or edema. Pedal pulses intact NEUROLOGIC: Anxious PSYCHIATRIC: Normal affect, normal mood. Stable SKIN: No ulcerations or rashes VASCULAR: Poor capillary refill Labs: Labs: Laboratory Tests Test 12/26/18 12:40 12/26/18 16:05 White Blood Count 13.5 x10^3/uL (4.0-11.0) Red Blood Count 4.64 x10^6/uL (3.50-5.40) Hemoglobin 13.0 g/dL (12.0-15.5) Hematocrit 40.2 % (36.0-47.0) Mean Corpuscular Volume 87 fL (79-100) Mean Corpuscular Hemoglobin 28 pg (25-35) Mean Corpuscular Hemoglobin Concent 32 g/dL (31-37) Red Cell Distribution Width 13.9 % (11.5-14.5) Platelet Count 268 x10^3/uL (140-400) Neutrophils (%) (Auto) 81 % (31-73) Lymphocytes (%) (Auto) 9 % (24-48) Monocytes (%) (Auto) 7 % (0-9) Eosinophils (%) (Auto) 3 % (0-3) Basophils (%) (Auto) 1 % (0-3) Neutrophils # (Auto) 11.0 x10^3uL (1.8-7.7) Lymphocytes # (Auto) 1.2 x10^3/uL (1.0-4.8) Monocytes # (Auto) 0.9 x10^3/uL (0.0-1.1) Eosinophils # (Auto) 0.4 x10^3/uL (0.0-0.7) Basophils # (Auto) 0.1 x10^3/uL (0.0-0.2) Prothrombin Time 13.4 SEC (11.7-14.0) Prothromb Time International Ratio 1.1 (0.8-1.1) Activated Partial Thromboplast Time 30 SEC (24-38) Sodium Level 143 mmol/L (136-145) Potassium Level 4.3 mmol/L (3.5-5.1) Chloride Level 104 mmol/L (98-107) Carbon Dioxide Level 30 mmol/L (21-32) Anion Gap 9 (6-14) Blood Urea Nitrogen 13 mg/dL (7-20) Creatinine 0.7 mg/dL (0.6-1.0) Estimated GFR (Cockcroft-Gault) 82.3 BUN/Creatinine Ratio 19 (6-20) Glucose Level 127 mg/dL (70-99) Lactic Acid Level 0.7 mmol/L (0.4-2.0) 0.9 mmol/L (0.4-2.0) Calcium Level 9.4 mg/dL (8.5-10.1) Magnesium Level 2.1 mg/dL (1.8-2.4) Total Bilirubin 0.4 mg/dL (0.2-1.0) Aspartate Amino Transf (AST/SGOT) 14 U/L (15-37) Alanine Aminotransferase (ALT/SGPT) 27 U/L (14-59) Alkaline Phosphatase 97 U/L (46-116) Creatine Kinase 41 U/L (26-192) Creatine Kinase MB (Mass) 1.6 ng/mL (0.0-3.6) Creatine Kinase MB Relative Index % (0-4) Troponin I Quantitative < 0.017 ng/mL (0.000-0.055) OZ-Gdh-D-Type Natriuretic Peptide 419 pg/mL (0-124) Total Protein 6.4 g/dL (6.4-8.2) Albumin 3.5 g/dL (3.4-5.0) Albumin/Globulin Ratio 1.2 (1.0-1.7) Thyroid Stimulating Hormone (TSH) 1.161 uIU/mL (0.358-3.74) Laboratory Tests Test 12/26/18 12:40 12/26/18 16:05 White Blood Count 13.5 x10^3/uL (4.0-11.0) Red Blood Count 4.64 x10^6/uL (3.50-5.40) Hemoglobin 13.0 g/dL (12.0-15.5) Hematocrit 40.2 % (36.0-47.0) Mean Corpuscular Volume 87 fL (79-100) Mean Corpuscular Hemoglobin 28 pg (25-35) Mean Corpuscular Hemoglobin Concent 32 g/dL (31-37) Red Cell Distribution Width 13.9 % (11.5-14.5) Platelet Count 268 x10^3/uL (140-400) Neutrophils (%) (Auto) 81 % (31-73) Lymphocytes (%) (Auto) 9 % (24-48) Monocytes (%) (Auto) 7 % (0-9) Eosinophils (%) (Auto) 3 % (0-3) Basophils (%) (Auto) 1 % (0-3) Neutrophils # (Auto) 11.0 x10^3uL (1.8-7.7) Lymphocytes # (Auto) 1.2 x10^3/uL (1.0-4.8) Monocytes # (Auto) 0.9 x10^3/uL (0.0-1.1) Eosinophils # (Auto) 0.4 x10^3/uL (0.0-0.7) Basophils # (Auto) 0.1 x10^3/uL (0.0-0.2) Prothrombin Time 13.4 SEC (11.7-14.0) Prothromb Time International Ratio 1.1 (0.8-1.1) Activated Partial Thromboplast Time 30 SEC (24-38) Sodium Level 143 mmol/L (136-145) Potassium Level 4.3 mmol/L (3.5-5.1) Chloride Level 104 mmol/L (98-107) Carbon Dioxide Level 30 mmol/L (21-32) Anion Gap 9 (6-14) Blood Urea Nitrogen 13 mg/dL (7-20) Creatinine 0.7 mg/dL (0.6-1.0) Estimated GFR (Cockcroft-Gault) 82.3 BUN/Creatinine Ratio 19 (6-20) Glucose Level 127 mg/dL (70-99) Lactic Acid Level 0.7 mmol/L (0.4-2.0) 0.9 mmol/L (0.4-2.0) Calcium Level 9.4 mg/dL (8.5-10.1) Magnesium Level 2.1 mg/dL (1.8-2.4) Total Bilirubin 0.4 mg/dL (0.2-1.0) Aspartate Amino Transf (AST/SGOT) 14 U/L (15-37) Alanine Aminotransferase (ALT/SGPT) 27 U/L (14-59) Alkaline Phosphatase 97 U/L (46-116) Creatine Kinase 41 U/L (26-192) Creatine Kinase MB (Mass) 1.6 ng/mL (0.0-3.6) Creatine Kinase MB Relative Index % (0-4) Troponin I Quantitative < 0.017 ng/mL (0.000-0.055) PW-Fmq-I-Type Natriuretic Peptide 419 pg/mL (0-124) Total Protein 6.4 g/dL (6.4-8.2) Albumin 3.5 g/dL (3.4-5.0) Albumin/Globulin Ratio 1.2 (1.0-1.7) Thyroid Stimulating Hormone (TSH) 1.161 uIU/mL (0.358-3.74) Images: Images Chest x-ray shows COPD Assessment/Plan Assessment/Plan Respiratory failure COPD and chest pain Plan Patient is being admitted to the cardiac 4 Duo nebs O2 per nasal cannula IV steroids IV antibiotics consult pulmonary Serial enzymes still EKGs Consult cardiology Home meds DVT prophylaxis Full code Frequent labs Prognosis long-term is guarded This lady is quite ill and I told her she really needs to quit smoking Total time 33 minutes HARESH WEINER III DO December 26, 2018 19:27
[2018-12-26] MEDS: IPRATRPIUM/ALBUTEROL 0.5/2.5MG 3 ML NEBU. NEB SCH (20:00)
[2018-12-26] MEDS: BUDESONIDE 0.5 MG/2 ML NEBU. NEB SCH (20:00)
[2018-12-26] MEDS ORDERED: BUDESONIDE 0.5 MG/2 ML NEBU. NEB SCH (20:00)
[2018-12-26] MEDS: METOPROLOL TART IMMED RELEASE 25 MG TABLET. PO SCH ×2 (21:00→21:18)
[2018-12-26] MEDS: methylPREDNISolone SOD SUCC PF 40 MG/ML VIAL. IV SCH (21:16)
[2018-12-26] MEDS: LATANOPROST 0.005% OPHTH SOLUTION 2.5ML BOTTLE. OU SCH (21:17)
[2018-12-26] MEDS: BENZONATATE 100 MG CAPSULE. PO SCH (21:17)
[2018-12-26] MEDS: ALPRAZolam 0.5 MG TABLET PO PRN (21:19)
[2018-12-26] MEDS ORDERED: methylPREDNISolone SOD SUCC PF 125 MG/2 ML VIAL. IV SCH (22:00)
[2018-12-26 23:00] VITALS: BP 119/63
[2018-12-27 03:00] VITALS: BP 132/84
[2018-12-27 04:13] LABS: BASO % 0 % (0-3); EOS % 0 % (0-3); HEMATOCRIT 37.4 % (36.0-47.0); HEMOGLOBIN 12.1 g/dL (12.0-15.5); LYMPH # 0.6 x10^3/uL (1.0-4.8); LYMPH % 5 % (24-48); MEAN CORPUSCULAR HEMOGLOBIN 28 pg (25-35); MEAN CORPUSCULAR HGB CONC 32 g/dL (31-37); MEAN CORPUSCULAR VOLUME 86 fL (79-100); MONO # 0.2 x10^3/uL (0.0-1.1); MONO % 2 % (0-9); NEUT # 9.8 x10^3uL (1.8-7.7); NEUT % 92 % (31-73); PLATELET COUNT 252 x10^3/uL (140-400); RED BLOOD COUNT 4.33 x10^6/uL (3.50-5.40); RED CELL DISTRIBUTION WIDTH 14.1 % (11.5-14.5); WHITE BLOOD COUNT 10.6 x10^3/uL (4.0-11.0)
[2018-12-27 04:22] LABS: CALCIUM 9.3 mg/dL (8.5-10.1); CREATININE 0.9 mg/dL (0.6-1.0); GFR 61.5; POTASSIUM 4.6 mmol/L (3.5-5.1)
[2018-12-27 05:00] LABS: % BANDS 2 % (0-9); % LYMPHS 5 % (24-48); % MONOS 3 % (0-10); % SEGS 90 % (35-66); PLT ESTIMATE ADEQUATE (ADEQUATE)
[2018-12-27] MEDS: methylPREDNISolone SOD SUCC PF 40 MG/ML VIAL. IV SCH ×3 (05:47→21:34)
[2018-12-27 07:00] VITALS: BP 159/72
--- NOTE | 2018-12-27 07:47 | PDOC ---
PROGRESS NOTES Chief Complaint Chief Complaint A/P: Acute COPD exacerbation - with productive cough, will start on nebs, steroids, doxycycline Dyspnea with acute hypoxic respiratory failure secondary to acute exacerbation of chronic obstructive pulmonary disease Palpitations - likely pleuritic from COPD exacerbation, but with age, gender and smoking will trend troponin, EKG reviewed HTN - cont home meds Abdominal pain - will give GI cocktail. she states pepto usually helps Anxiety - cont home meds Smoker for 40 years, one and half pack per day and continues to smoke cigarettes - counseled on cessation - PFTs as an outpatient. - 6-minute walk test at the time of discharge to assess for home oxygen needs. FEN - General diet PPX - Lovenox FULL CODE Inpatient for acute copd exacerbation with chest pain, needs O2 History of Present Illness History of Present Illness Ms Harmon is a 73 year old female with history of hypertension, COPD, current smoker who presents to the ED today complaining of a productive cough for 2 days as well as chest pain rated at 4 out of 10 described as achiness. Patient states that achiness in the chest is worse when she is coughing. Denies any fever. Denies anything specifically relieving the achiness. She states she was previously told to be on oxygen but typically doesn't use it as prescribed. She states she has chronic shortness of breath from COPD. In ED was notably <88% on room air and breathing 20 times per minute with tripoding and some intercostal retractions which improved slightly with steroids and nebulizers, was then called for admission. Feeling a bit better today, c/o left otalgia. Ear is clear. She has a cardiac stress test outpatient sunday, she is anxious to be home before that. Vitals Vitals Vital Signs Date Time Temp Pulse Resp B/P (MAP) Pulse Ox O2 Delivery O2 Flow Rate FiO2 12/27/18 03:00 98.0 78 24 132/84 (100) 92 Nasal Cannula 3.0 98.0 Physical Exam General: Alert, Oriented X3, Cooperative Heart: Regular rate, Normal S1, Normal S2 Lungs: Wheezing, Other Abdomen: Normal bowel sounds, Soft, No tenderness, No hepatosplenomegaly, No masses Extremities: No clubbing, No cyanosis Skin: No rashes, No breakdown Labs LABS Laboratory Tests Test 12/26/18 12:40 12/26/18 16:05 12/27/18 03:32 White Blood Count 13.5 x10^3/uL (4.0-11.0) 10.6 x10^3/uL (4.0-11.0) Red Blood Count 4.64 x10^6/uL (3.50-5.40) 4.33 x10^6/uL (3.50-5.40) Hemoglobin 13.0 g/dL (12.0-15.5) 12.1 g/dL (12.0-15.5) Hematocrit 40.2 % (36.0-47.0) 37.4 % (36.0-47.0) Mean Corpuscular Volume 87 fL (79-100) 86 fL (79-100) Mean Corpuscular Hemoglobin 28 pg (25-35) 28 pg (25-35) Mean Corpuscular Hemoglobin Concent 32 g/dL (31-37) 32 g/dL (31-37) Red Cell Distribution Width 13.9 % (11.5-14.5) 14.1 % (11.5-14.5) Platelet Count 268 x10^3/uL (140-400) 252 x10^3/uL (140-400) Neutrophils (%) (Auto) 81 % (31-73) 92 % (31-73) Lymphocytes (%) (Auto) 9 % (24-48) 5 % (24-48) Monocytes (%) (Auto) 7 % (0-9) 2 % (0-9) Eosinophils (%) (Auto) 3 % (0-3) 0 % (0-3) Basophils (%) (Auto) 1 % (0-3) 0 % (0-3) Neutrophils # (Auto) 11.0 x10^3uL (1.8-7.7) 9.8 x10^3uL (1.8-7.7) Lymphocytes # (Auto) 1.2 x10^3/uL (1.0-4.8) 0.6 x10^3/uL (1.0-4.8) Monocytes # (Auto) 0.9 x10^3/uL (0.0-1.1) 0.2 x10^3/uL (0.0-1.1) Eosinophils # (Auto) 0.4 x10^3/uL (0.0-0.7) 0.0 x10^3/uL (0.0-0.7) Basophils # (Auto) 0.1 x10^3/uL (0.0-0.2) 0.0 x10^3/uL (0.0-0.2) Prothrombin Time 13.4 SEC (11.7-14.0) Prothromb Time International Ratio 1.1 (0.8-1.1) Activated Partial Thromboplast Time 30 SEC (24-38) Sodium Level 143 mmol/L (136-145) 141 mmol/L (136-145) Potassium Level 4.3 mmol/L (3.5-5.1) 4.6 mmol/L (3.5-5.1) Chloride Level 104 mmol/L (98-107) 105 mmol/L (98-107) Carbon Dioxide Level 30 mmol/L (21-32) 29 mmol/L (21-32) Anion Gap 9 (6-14) 7 (6-14) Blood Urea Nitrogen 13 mg/dL (7-20) 20 mg/dL (7-20) Creatinine 0.7 mg/dL (0.6-1.0) 0.9 mg/dL (0.6-1.0) Estimated GFR (Cockcroft-Gault) 82.3 61.5 BUN/Creatinine Ratio 19 (6-20) Glucose Level 127 mg/dL (70-99) 182 mg/dL (70-99) Lactic Acid Level 0.7 mmol/L (0.4-2.0) 0.9 mmol/L (0.4-2.0) Calcium Level 9.4 mg/dL (8.5-10.1) 9.3 mg/dL (8.5-10.1) Magnesium Level 2.1 mg/dL (1.8-2.4) Total Bilirubin 0.4 mg/dL (0.2-1.0) Aspartate Amino Transf (AST/SGOT) 14 U/L (15-37) Alanine Aminotransferase (ALT/SGPT) 27 U/L (14-59) Alkaline Phosphatase 97 U/L (46-116) Creatine Kinase 41 U/L (26-192) Creatine Kinase MB (Mass) 1.6 ng/mL (0.0-3.6) Creatine Kinase MB Relative Index % (0-4) Troponin I Quantitative < 0.017 ng/mL (0.000-0.055) OI-Whj-H-Type Natriuretic Peptide 419 pg/mL (0-124) Total Protein 6.4 g/dL (6.4-8.2) Albumin 3.5 g/dL (3.4-5.0) Albumin/Globulin Ratio 1.2 (1.0-1.7) Thyroid Stimulating Hormone (TSH) 1.161 uIU/mL (0.358-3.74) Segmented Neutrophils % 90 % (35-66) Band Neutrophils % 2 % (0-9) Lymphocytes % 5 % (24-48) Monocytes % 3 % (0-10) Platelet Estimate Adequate (ADEQUATE) Assessment and Plan Assessmemt and Plan Problems Medical Problems: (1) COPD exacerbation Status: Acute (2) Smoking addiction Status: Acute Comment Review of Relevant I have reviewed the following items aron (where applicable) has been applied. Labs Laboratory Tests Test 12/26/18 12:40 12/26/18 16:05 12/27/18 03:32 White Blood Count 13.5 x10^3/uL (4.0-11.0) 10.6 x10^3/uL (4.0-11.0) Red Blood Count 4.64 x10^6/uL (3.50-5.40) 4.33 x10^6/uL (3.50-5.40) Hemoglobin 13.0 g/dL (12.0-15.5) 12.1 g/dL (12.0-15.5) Hematocrit 40.2 % (36.0-47.0) 37.4 % (36.0-47.0) Mean Corpuscular Volume 87 fL (79-100) 86 fL (79-100) Mean Corpuscular Hemoglobin 28 pg (25-35) 28 pg (25-35) Mean Corpuscular Hemoglobin Concent 32 g/dL (31-37) 32 g/dL (31-37) Red Cell Distribution Width 13.9 % (11.5-14.5) 14.1 % (11.5-14.5) Platelet Count 268 x10^3/uL (140-400) 252 x10^3/uL (140-400) Neutrophils (%) (Auto) 81 % (31-73) 92 % (31-73) Lymphocytes (%) (Auto) 9 % (24-48) 5 % (24-48) Monocytes (%) (Auto) 7 % (0-9) 2 % (0-9) Eosinophils (%) (Auto) 3 % (0-3) 0 % (0-3) Basophils (%) (Auto) 1 % (0-3) 0 % (0-3) Neutrophils # (Auto) 11.0 x10^3uL (1.8-7.7) 9.8 x10^3uL (1.8-7.7) Lymphocytes # (Auto) 1.2 x10^3/uL (1.0-4.8) 0.6 x10^3/uL (1.0-4.8) Monocytes # (Auto) 0.9 x10^3/uL (0.0-1.1) 0.2 x10^3/uL (0.0-1.1) Eosinophils # (Auto) 0.4 x10^3/uL (0.0-0.7) 0.0 x10^3/uL (0.0-0.7) Basophils # (Auto) 0.1 x10^3/uL (0.0-0.2) 0.0 x10^3/uL (0.0-0.2) Prothrombin Time 13.4 SEC (11.7-14.0) Prothromb Time International Ratio 1.1 (0.8-1.1) Activated Partial Thromboplast Time 30 SEC (24-38) Sodium Level 143 mmol/L (136-145) 141 mmol/L (136-145) Potassium Level 4.3 mmol/L (3.5-5.1) 4.6 mmol/L (3.5-5.1) Chloride Level 104 mmol/L (98-107) 105 mmol/L (98-107) Carbon Dioxide Level 30 mmol/L (21-32) 29 mmol/L (21-32) Anion Gap 9 (6-14) 7 (6-14) Blood Urea Nitrogen 13 mg/dL (7-20) 20 mg/dL (7-20) Creatinine 0.7 mg/dL (0.6-1.0) 0.9 mg/dL (0.6-1.0) Estimated GFR (Cockcroft-Gault) 82.3 61.5 BUN/Creatinine Ratio 19 (6-20) Glucose Level 127 mg/dL (70-99) 182 mg/dL (70-99) Lactic Acid Level 0.7 mmol/L (0.4-2.0) 0.9 mmol/L (0.4-2.0) Calcium Level 9.4 mg/dL (8.5-10.1) 9.3 mg/dL (8.5-10.1) Magnesium Level 2.1 mg/dL (1.8-2.4) Total Bilirubin 0.4 mg/dL (0.2-1.0) Aspartate Amino Transf (AST/SGOT) 14 U/L (15-37) Alanine Aminotransferase (ALT/SGPT) 27 U/L (14-59) Alkaline Phosphatase 97 U/L (46-116) Creatine Kinase 41 U/L (26-192) Creatine Kinase MB (Mass) 1.6 ng/mL (0.0-3.6) Creatine Kinase MB Relative Index % (0-4) Troponin I Quantitative < 0.017 ng/mL (0.000-0.055) NT-Xsa-H-Type Natriuretic Peptide 419 pg/mL (0-124) Total Protein 6.4 g/dL (6.4-8.2) Albumin 3.5 g/dL (3.4-5.0) Albumin/Globulin Ratio 1.2 (1.0-1.7) Thyroid Stimulating Hormone (TSH) 1.161 uIU/mL (0.358-3.74) Segmented Neutrophils % 90 % (35-66) Band Neutrophils % 2 % (0-9) Lymphocytes % 5 % (24-48) Monocytes % 3 % (0-10) Platelet Estimate Adequate (ADEQUATE) Laboratory Tests Test 12/26/18 12:40 12/26/18 16:05 12/27/18 03:32 White Blood Count 13.5 x10^3/uL (4.0-11.0) 10.6 x10^3/uL (4.0-11.0) Red Blood Count 4.64 x10^6/uL (3.50-5.40) 4.33 x10^6/uL (3.50-5.40) Hemoglobin 13.0 g/dL (12.0-15.5) 12.1 g/dL (12.0-15.5) Hematocrit 40.2 % (36.0-47.0) 37.4 % (36.0-47.0) Mean Corpuscular Volume 87 fL (79-100) 86 fL (79-100) Mean Corpuscular Hemoglobin 28 pg (25-35) 28 pg (25-35) Mean Corpuscular Hemoglobin Concent 32 g/dL (31-37) 32 g/dL (31-37) Red Cell Distribution Width 13.9 % (11.5-14.5) 14.1 % (11.5-14.5) Platelet Count 268 x10^3/uL (140-400) 252 x10^3/uL (140-400) Neutrophils (%) (Auto) 81 % (31-73) 92 % (31-73) Lymphocytes (%) (Auto) 9 % (24-48) 5 % (24-48) Monocytes (%) (Auto) 7 % (0-9) 2 % (0-9) Eosinophils (%) (Auto) 3 % (0-3) 0 % (0-3) Basophils (%) (Auto) 1 % (0-3) 0 % (0-3) Neutrophils # (Auto) 11.0 x10^3uL (1.8-7.7) 9.8 x10^3uL (1.8-7.7) Lymphocytes # (Auto) 1.2 x10^3/uL (1.0-4.8) 0.6 x10^3/uL (1.0-4.8) Monocytes # (Auto) 0.9 x10^3/uL (0.0-1.1) 0.2 x10^3/uL (0.0-1.1) Eosinophils # (Auto) 0.4 x10^3/uL (0.0-0.7) 0.0 x10^3/uL (0.0-0.7) Basophils # (Auto) 0.1 x10^3/uL (0.0-0.2) 0.0 x10^3/uL (0.0-0.2) Prothrombin Time 13.4 SEC (11.7-14.0) Prothromb Time International Ratio 1.1 (0.8-1.1) Activated Partial Thromboplast Time 30 SEC (24-38) Sodium Level 143 mmol/L (136-145) 141 mmol/L (136-145) Potassium Level 4.3 mmol/L (3.5-5.1) 4.6 mmol/L (3.5-5.1) Chloride Level 104 mmol/L (98-107) 105 mmol/L (98-107) Carbon Dioxide Level 30 mmol/L (21-32) 29 mmol/L (21-32) Anion Gap 9 (6-14) 7 (6-14) Blood Urea Nitrogen 13 mg/dL (7-20) 20 mg/dL (7-20) Creatinine 0.7 mg/dL (0.6-1.0) 0.9 mg/dL (0.6-1.0) Estimated GFR (Cockcroft-Gault) 82.3 61.5 BUN/Creatinine Ratio 19 (6-20) Glucose Level 127 mg/dL (70-99) 182 mg/dL (70-99) Lactic Acid Level 0.7 mmol/L (0.4-2.0) 0.9 mmol/L (0.4-2.0) Calcium Level 9.4 mg/dL (8.5-10.1) 9.3 mg/dL (8.5-10.1) Magnesium Level 2.1 mg/dL (1.8-2.4) Total Bilirubin 0.4 mg/dL (0.2-1.0) Aspartate Amino Transf (AST/SGOT) 14 U/L (15-37) Alanine Aminotransferase (ALT/SGPT) 27 U/L (14-59) Alkaline Phosphatase 97 U/L (46-116) Creatine Kinase 41 U/L (26-192) Creatine Kinase MB (Mass) 1.6 ng/mL (0.0-3.6) Creatine Kinase MB Relative Index % (0-4) Troponin I Quantitative < 0.017 ng/mL (0.000-0.055) WV-Oik-W-Type Natriuretic Peptide 419 pg/mL (0-124) Total Protein 6.4 g/dL (6.4-8.2) Albumin 3.5 g/dL (3.4-5.0) Albumin/Globulin Ratio 1.2 (1.0-1.7) Thyroid Stimulating Hormone (TSH) 1.161 uIU/mL (0.358-3.74) Segmented Neutrophils % 90 % (35-66) Band Neutrophils % 2 % (0-9) Lymphocytes % 5 % (24-48) Monocytes % 3 % (0-10) Platelet Estimate Adequate (ADEQUATE) Medications Current Medications Albuterol/ Ipratropium (Duoneb) 3 ml 1X ONCE NEB Last administered on 12/26/18at 13:03; Start 12/26/18 at 12:45; Stop 12/26/18 at 12:47; Status DC Methylprednisolone Sodium Succinate (SOLU-Medrol 125MG VIAL) 125 mg 1X ONCE IV Last administered on 12/26/18at 13:14; Start 12/26/18 at 12:45; Stop 12/26/18 at 12:47; Status DC Nicotine (Nicoderm Cq 21mg) 1 patch 1X STAT TD Last administered on 12/26/18at 13:13; Start 12/26/18 at 12:40; Stop 12/26/18 at 12:47; Status DC Albuterol Sulfate (Ventolin Neb Soln) 10 mg 1X ONCE CONT NEB Last administered on 12/26/18at 13:29; Start 12/26/18 at 13:30; Stop 12/26/18 at 13:31; Status DC Alprazolam (Xanax) 0.5 mg 1X ONCE PO ; Start 12/26/18 at 13:30; Stop 12/26/18 at 13:31; Status DC Ondansetron HCl (Zofran) 4 mg PRN Q8HRS PRN IV NAUSEA/VOMITING; Start 12/26/18 at 14:45; Stop 12/27/18 at 14:44 Morphine Sulfate (Morphine Sulfate) 2 mg PRN Q2HR PRN IV PAIN; Start 12/26/18 at 14:45; Stop 12/27/18 at 14:44 Acetaminophen (Tylenol) 650 mg PRN Q4HRS PRN PO FEVER Last administered on 12/26/18at 21:18; Start 12/26/18 at 14:45; Stop 12/27/18 at 14:44 Albuterol/ Ipratropium (Duoneb) 3 ml RTQID NEB ; Start 12/26/18 at 16:00; Stop 12/26/18 at 18:43; Status DC Budesonide (Pulmicort) 0.5 mg RTBID NEB ; Start 12/26/18 at 20:00 Ceftriaxone Sodium (Rocephin) 1 gm Q24H IVP Last administered on 12/26/18at 18:23; Start 12/26/18 at 18:00 Methylprednisolone Sodium Succinate (SOLU-Medrol 40MG VIAL) 40 mg Q8HRS IV Last administered on 12/27/18at 05:47; Start 12/26/18 at 22:00 Alprazolam (Xanax) 0.5 mg PRN Q12HR PRN PO ANXIETY / AGITATION Last administered on 12/26/18at 21:19; Start 12/26/18 at 18:45 Aspirin (Ecotrin) 81 mg DAILY PO ; Start 12/27/18 at 09:00 Budesonide (Pulmicort) 0.5 mg RTBID NEB ; Start 12/26/18 at 20:00; Stop 12/26/18 at 20:00; Status DC Ergocalciferol (Vitamin D2) 50,000 unit WEEKLY PO ; Start 01/02/19 at 09:00 Albuterol/ Ipratropium (Duoneb) 3 ml RTQID NEB ; Start 12/26/18 at 20:00 Losartan Potassium (Cozaar) 100 mg DAILY PO ; Start 12/27/18 at 09:00 Metoprolol Tartrate (Lopressor) 25 mg BID PO ; Start 12/26/18 at 21:00 Benzonatate (Tessalon Perle) 100 mg [id number] PO Last administered on 12/26/18at 21:17; Start 12/26/18 at 21:00 Cetirizine HCl (ZyrTEC) 10 mg DAILY PO ; Start 12/27/18 at 09:00 Fluticasone Propionate (Flonase) 2 spray DAILY NS ; Start 12/27/18 at 09:00 Latanoprost (Xalatan) 1 drop QHS OU Last administered on 12/26/18at 21:17; Start 12/26/18 at 21:00 Multi-Ingredient Mouthwash/Gargle (Gi Cocktail) 20 ml PRN QID PRN PO CHEST PAIN; Start 12/26/18 at 18:45 Nicotine (Nicoderm Cq 14mg) 1 patch PRN DAILY PRN TD SMOKING CESSATION; Start 12/27/18 at 09:00 Pantoprazole Sodium (Protonix) 40 mg DAILYAC PO ; Start 12/27/18 at 07:30 Methylprednisolone Sodium Succinate (SOLU-Medrol 125MG VIAL) 60 mg Q8HRS IV ; Start 12/26/18 at 22:00; Stop 12/26/18 at 22:00; Status DC Active Scripts Active [place] 5-325 Tablet (Acetaminophen/Hydrocodone Bitart) 1 Each Tablet 1 Tab PO Q6- 8HRS PRN Prednisone 20 Mg Tablet 20 Mg PO DAILY 10 Days Culturelle (Lactobacillus Rhamnosus Gg) 1 Each Cap.sprink 1 Cap PO BID 30 Days [Pantoprazole] 40 MG Tablet.dr 40 Mg PO DAILYAC 30 Days [Lido:Maalox 1:1] 20 ML Oral.susp 20 Ml PO PRN QID PRN 10 Days Budesonide 0.5 Mg/2 Ml Ampul.neb 0.5 Mg NEB RTBID 30 Days [Nicotine 14MG] 1 PATCH Patch 1 Patch TD PRN DAILY PRN 30 Days Duoneb 0.5-3(2.5) Mg/3 Ml (Albuterol/Ipratropium) 3 Ml Ampul.neb 3 Ml NEB RTQID 30 Days Doxycycline Hyclate 100 Mg Tablet 100 Mg PO BID 10 Days Tessalon Perle (Benzonatate) 100 Mg Capsule 21 Cap PO TID Reported Jing Allergy (Fexofenadine Hcl) 180 Mg Tablet 1 Tab PO DAILY Flonase Allergy Relief (Fluticasone Propionate) 9.9 Ml [place].susp 2 Sprays NS DAILY Proair Hfa Inhaler (Albuterol Sulfate) 8.5 Gm Hfa.aer.ad 2 Puff INH PRN Q6HRS PRN Alprazolam 0.5 Mg Tablet 0.5 Mg PO PRN Q12HR PRN Aspir-Low (Aspirin) 81 Mg Tablet. 1 Tab PO DAILY Vitamin D2 (Ergocalciferol (Vitamin D2)) 50,000 Unit Capsule 50,000 Unit PO WEEKLY Latanoprost 2.5 Ml Drops 1 Drop EACHEYE QHS Metoprolol Tartrate 25 Mg Tablet 25 Mg PO BID 1/2 tablet twice daily Losartan Potassium (Losartan Potassium) 25 Mg Tablet 100 Mg PO DAILY Vitals/I & O Vital Sign - Last 24 Hours 12/26/18 12/26/18 12/26/18 12/26/18 12:27 13:06 13:25 13:33 Temp 98.9 98.9 Pulse 78 74 Resp 36 36 B/P (MAP) 149/81 (103) 134/72 (92) Pulse Ox 91 93 93 O2 Delivery Nasal Cannula Nasal Cannula Nasal Cannula Nasal Cannula O2 Flow Rate 2.0 3.0 3.0 3.0 12/26/18 12/26/18 12/26/18 12/26/18 14:25 14:45 15:47 16:08 Temp 98.7 98.7 Pulse 80 88 77 Resp 26 28 18 B/P (MAP) 139/67 (91) 146/66 (92) 140/92 (108) Pulse Ox 97 95 90 O2 Delivery Aerosol Mask Nasal Cannula Nasal Cannula O2 Flow Rate 2.0 2.0 12/26/18 12/26/18 12/26/18 12/27/18 19:00 20:00 23:00 03:00 Temp 98.1 98.3 98.0 98.1 98.3 98.0 Pulse 90 90 78 Resp 22 20 24 B/P (MAP) 122/63 (82) 119/63 (81) 132/84 (100) Pulse Ox 92 95 92 O2 Delivery Nasal Cannula Nasal Cannula Nasal Cannula Nasal Cannula O2 Flow Rate 3.0 3.0 3.0 3.0 Intake and Output 12/26/18 12/26/18 12/27/18 15:00 23:00 07:00 Intake Total 520 ml 600 ml Output Total 0 ml Balance 520 ml 600 ml EARNESTINE BRISCOE MD December 27, 2018 07:47
[2018-12-27] MEDS: BUDESONIDE 0.5 MG/2 ML NEBU. NEB SCH ×2 (08:10→20:00)
[2018-12-27] MEDS: IPRATRPIUM/ALBUTEROL 0.5/2.5MG 3 ML NEBU. NEB SCH ×4 (08:10→20:00)
[2018-12-27] MEDS: PANTOPRAZOLE 40 MG TABLET.DR. PO SCH (08:38)
[2018-12-27] MEDS: METOPROLOL TART IMMED RELEASE 25 MG TABLET. PO SCH ×3 (08:38→21:26)
[2018-12-27] MEDS: CETIRIZINE HCL 10 MG TABLET. PO SCH (08:38)
[2018-12-27] MEDS: ASPIRIN ENTERIC COATED 81 MG TABLET.DR. PO SCH (08:39)
[2018-12-27] MEDS: LOSARTAN POTASSIUM 50 MG TABLET. PO SCH (08:39)
[2018-12-27] MEDS: BENZONATATE 100 MG CAPSULE. PO SCH ×3 (08:39→21:26)
[2018-12-27] MEDS: FLUTICASONE 50MCG/NASAL SPRAY 16GM BOTTLE. NS SCH (08:39)
[2018-12-27] MEDS: NICOTINE 14MG PATCH. TD PRN (08:40)
[2018-12-27 11:00] VITALS: BP 118/55
--- NOTE | 2018-12-27 12:20 | PDOC ---
PULMONARY PROGRESS NOTES Subjective less soa Vitals Vital Signs Date Time Temp Pulse Resp B/P (MAP) Pulse Ox O2 Delivery O2 Flow Rate FiO2 12/27/18 11:19 Nasal Cannula 3.0 12/27/18 11:00 98.1 69 20 118/55 (76) 95 98.1 General: Alert, No acute distress HEENT: Other Lungs: Wheezing (resolved) Cardiovascular: S1, S2 Abdomen: Soft, Non-tender Extremities: No Edema Skin: Warm Labs Laboratory Tests Test 12/26/18 12:40 12/26/18 16:05 12/27/18 03:32 White Blood Count 13.5 x10^3/uL (4.0-11.0) 10.6 x10^3/uL (4.0-11.0) Red Blood Count 4.64 x10^6/uL (3.50-5.40) 4.33 x10^6/uL (3.50-5.40) Hemoglobin 13.0 g/dL (12.0-15.5) 12.1 g/dL (12.0-15.5) Hematocrit 40.2 % (36.0-47.0) 37.4 % (36.0-47.0) Mean Corpuscular Volume 87 fL (79-100) 86 fL (79-100) Mean Corpuscular Hemoglobin 28 pg (25-35) 28 pg (25-35) Mean Corpuscular Hemoglobin Concent 32 g/dL (31-37) 32 g/dL (31-37) Red Cell Distribution Width 13.9 % (11.5-14.5) 14.1 % (11.5-14.5) Platelet Count 268 x10^3/uL (140-400) 252 x10^3/uL (140-400) Neutrophils (%) (Auto) 81 % (31-73) 92 % (31-73) Lymphocytes (%) (Auto) 9 % (24-48) 5 % (24-48) Monocytes (%) (Auto) 7 % (0-9) 2 % (0-9) Eosinophils (%) (Auto) 3 % (0-3) 0 % (0-3) Basophils (%) (Auto) 1 % (0-3) 0 % (0-3) Neutrophils # (Auto) 11.0 x10^3uL (1.8-7.7) 9.8 x10^3uL (1.8-7.7) Lymphocytes # (Auto) 1.2 x10^3/uL (1.0-4.8) 0.6 x10^3/uL (1.0-4.8) Monocytes # (Auto) 0.9 x10^3/uL (0.0-1.1) 0.2 x10^3/uL (0.0-1.1) Eosinophils # (Auto) 0.4 x10^3/uL (0.0-0.7) 0.0 x10^3/uL (0.0-0.7) Basophils # (Auto) 0.1 x10^3/uL (0.0-0.2) 0.0 x10^3/uL (0.0-0.2) Prothrombin Time 13.4 SEC (11.7-14.0) Prothromb Time International Ratio 1.1 (0.8-1.1) Activated Partial Thromboplast Time 30 SEC (24-38) Sodium Level 143 mmol/L (136-145) 141 mmol/L (136-145) Potassium Level 4.3 mmol/L (3.5-5.1) 4.6 mmol/L (3.5-5.1) Chloride Level 104 mmol/L (98-107) 105 mmol/L (98-107) Carbon Dioxide Level 30 mmol/L (21-32) 29 mmol/L (21-32) Anion Gap 9 (6-14) 7 (6-14) Blood Urea Nitrogen 13 mg/dL (7-20) 20 mg/dL (7-20) Creatinine 0.7 mg/dL (0.6-1.0) 0.9 mg/dL (0.6-1.0) Estimated GFR (Cockcroft-Gault) 82.3 61.5 BUN/Creatinine Ratio 19 (6-20) Glucose Level 127 mg/dL (70-99) 182 mg/dL (70-99) Lactic Acid Level 0.7 mmol/L (0.4-2.0) 0.9 mmol/L (0.4-2.0) Calcium Level 9.4 mg/dL (8.5-10.1) 9.3 mg/dL (8.5-10.1) Magnesium Level 2.1 mg/dL (1.8-2.4) Total Bilirubin 0.4 mg/dL (0.2-1.0) Aspartate Amino Transf (AST/SGOT) 14 U/L (15-37) Alanine Aminotransferase (ALT/SGPT) 27 U/L (14-59) Alkaline Phosphatase 97 U/L (46-116) Creatine Kinase 41 U/L (26-192) Creatine Kinase MB (Mass) 1.6 ng/mL (0.0-3.6) Creatine Kinase MB Relative Index % (0-4) Troponin I Quantitative < 0.017 ng/mL (0.000-0.055) CZ-Zcu-M-Type Natriuretic Peptide 419 pg/mL (0-124) Total Protein 6.4 g/dL (6.4-8.2) Albumin 3.5 g/dL (3.4-5.0) Albumin/Globulin Ratio 1.2 (1.0-1.7) Thyroid Stimulating Hormone (TSH) 1.161 uIU/mL (0.358-3.74) Segmented Neutrophils % 90 % (35-66) Band Neutrophils % 2 % (0-9) Lymphocytes % 5 % (24-48) Monocytes % 3 % (0-10) Platelet Estimate Adequate (ADEQUATE) Laboratory Tests Test 12/26/18 12:40 12/26/18 16:05 12/27/18 03:32 White Blood Count 13.5 x10^3/uL (4.0-11.0) 10.6 x10^3/uL (4.0-11.0) Red Blood Count 4.64 x10^6/uL (3.50-5.40) 4.33 x10^6/uL (3.50-5.40) Hemoglobin 13.0 g/dL (12.0-15.5) 12.1 g/dL (12.0-15.5) Hematocrit 40.2 % (36.0-47.0) 37.4 % (36.0-47.0) Mean Corpuscular Volume 87 fL (79-100) 86 fL (79-100) Mean Corpuscular Hemoglobin 28 pg (25-35) 28 pg (25-35) Mean Corpuscular Hemoglobin Concent 32 g/dL (31-37) 32 g/dL (31-37) Red Cell Distribution Width 13.9 % (11.5-14.5) 14.1 % (11.5-14.5) Platelet Count 268 x10^3/uL (140-400) 252 x10^3/uL (140-400) Neutrophils (%) (Auto) 81 % (31-73) 92 % (31-73) Lymphocytes (%) (Auto) 9 % (24-48) 5 % (24-48) Monocytes (%) (Auto) 7 % (0-9) 2 % (0-9) Eosinophils (%) (Auto) 3 % (0-3) 0 % (0-3) Basophils (%) (Auto) 1 % (0-3) 0 % (0-3) Neutrophils # (Auto) 11.0 x10^3uL (1.8-7.7) 9.8 x10^3uL (1.8-7.7) Lymphocytes # (Auto) 1.2 x10^3/uL (1.0-4.8) 0.6 x10^3/uL (1.0-4.8) Monocytes # (Auto) 0.9 x10^3/uL (0.0-1.1) 0.2 x10^3/uL (0.0-1.1) Eosinophils # (Auto) 0.4 x10^3/uL (0.0-0.7) 0.0 x10^3/uL (0.0-0.7) Basophils # (Auto) 0.1 x10^3/uL (0.0-0.2) 0.0 x10^3/uL (0.0-0.2) Prothrombin Time 13.4 SEC (11.7-14.0) Prothromb Time International Ratio 1.1 (0.8-1.1) Activated Partial Thromboplast Time 30 SEC (24-38) Sodium Level 143 mmol/L (136-145) 141 mmol/L (136-145) Potassium Level 4.3 mmol/L (3.5-5.1) 4.6 mmol/L (3.5-5.1) Chloride Level 104 mmol/L (98-107) 105 mmol/L (98-107) Carbon Dioxide Level 30 mmol/L (21-32) 29 mmol/L (21-32) Anion Gap 9 (6-14) 7 (6-14) Blood Urea Nitrogen 13 mg/dL (7-20) 20 mg/dL (7-20) Creatinine 0.7 mg/dL (0.6-1.0) 0.9 mg/dL (0.6-1.0) Estimated GFR (Cockcroft-Gault) 82.3 61.5 BUN/Creatinine Ratio 19 (6-20) Glucose Level 127 mg/dL (70-99) 182 mg/dL (70-99) Lactic Acid Level 0.7 mmol/L (0.4-2.0) 0.9 mmol/L (0.4-2.0) Calcium Level 9.4 mg/dL (8.5-10.1) 9.3 mg/dL (8.5-10.1) Magnesium Level 2.1 mg/dL (1.8-2.4) Total Bilirubin 0.4 mg/dL (0.2-1.0) Aspartate Amino Transf (AST/SGOT) 14 U/L (15-37) Alanine Aminotransferase (ALT/SGPT) 27 U/L (14-59) Alkaline Phosphatase 97 U/L (46-116) Creatine Kinase 41 U/L (26-192) Creatine Kinase MB (Mass) 1.6 ng/mL (0.0-3.6) Creatine Kinase MB Relative Index % (0-4) Troponin I Quantitative < 0.017 ng/mL (0.000-0.055) [id number]-Type Natriuretic Peptide 419 pg/mL (0-124) Total Protein 6.4 g/dL (6.4-8.2) Albumin 3.5 g/dL (3.4-5.0) Albumin/Globulin Ratio 1.2 (1.0-1.7) Thyroid Stimulating Hormone (TSH) 1.161 uIU/mL (0.358-3.74) Segmented Neutrophils % 90 % (35-66) Band Neutrophils % 2 % (0-9) Lymphocytes % 5 % (24-48) Monocytes % 3 % (0-10) Platelet Estimate Adequate (ADEQUATE) Medications Active Scripts Medications Dose Route/Sig Max Daily Dose Days Date Category Dose Instructions Jing Allergy (Fexofenadine Hcl) 180 Mg Tablet 1 Tab PO DAILY 12/26/18 Reported Flonase Allergy Relief (Fluticasone Propionate) 9.9 Ml [place].susp 2 Sprays NS DAILY 12/26/18 Reported [place] 5-325 Tablet (Acetaminophen/Hydrocodone Bitart) 1 Each Tablet 1 Tab PO Q6-8HRS PRN 12/23/18 Rx Prednisone 20 Mg Tablet 20 Mg PO DAILY 10 12/16/18 Rx Culturelle (Lactobacillus Rhamnosus Gg) 1 Each Cap.sprink 1 Cap PO BID 30 12/16/18 Rx [Pantoprazole] 40 MG Tablet.dr 40 Mg PO DAILYAC 30 12/16/18 Rx [[place]:Maalox 1:1] 20 ML Oral.susp 20 Ml PO PRN QID PRN 10 12/16/18 Rx Budesonide 0.5 Mg/2 Ml Ampul.neb 0.5 Mg NEB RTBID 30 12/16/18 Rx [Nicotine 14MG] 1 PATCH Patch 1 Patch TD PRN DAILY PRN 30 12/16/18 Rx Duoneb 0.5-3(2.5) Mg/3 Ml (Albuterol/Ipratropium) 3 Ml Ampul.neb 3 Ml NEB RTQID 30 12/16/18 Rx Doxycycline Hyclate 100 Mg Tablet 100 Mg PO BID 10 12/16/18 Rx Proair Hfa Inhaler (Albuterol Sulfate) 8.5 Gm Hfa.aer.ad 2 Puff INH PRN Q6HRS PRN 12/12/18 Reported Alprazolam 0.5 Mg Tablet 0.5 Mg PO PRN Q12HR PRN 12/12/18 Reported Aspir-Low (Aspirin) 81 Mg Tablet. 1 Tab PO DAILY 09/04/18 Reported Tessalon Perle (Benzonatate) 100 Mg Capsule 21 Cap PO TID 08/22/18 Rx Vitamin D2 (Ergocalciferol (Vitamin D2)) 50,000 Unit Capsule 50,000 Unit PO WEEKLY 08/21/18 Reported Latanoprost 2.5 Ml Drops 1 Drop EACHEYE QHS 08/21/18 Reported Metoprolol Tartrate 25 Mg Tablet 25 Mg PO BID 05/06/14 Reported 1/2 tablet twice daily Losartan Potassium (Losartan Potassium) 25 Mg Tablet 100 Mg PO DAILY 05/06/14 Reported Impression . 1. Dyspnea with acute hypoxic respiratory failure secondary to acute exacerbation of chronic obstructive pulmonary disease. The patient uses oxygen only at night and now requiring 2 liters. 2. Acute bronchitis. No definite consolidation seen on the chest x-ray. 3. Forty years of tobaccoism. 4. Recent ct chest 12/14/18 with no nodules Plan . 1. Continue with present oxygen. 2. Continue DuoNebs. 3. empiric antibiotic. 4. Pulmicort. 5. low dose steroids. 6. Smoking cessation counseling provided and she is motivated to quit cigarettes. 7. PFTs as an outpatient. 8. She may need a 6-minute walk at the time of discharge. 9. Discussed with RN. possible dc over weekend RAGINI WILLOUGHBY MD December 27, 2018 12:20
--- NOTE | 2018-12-27 12:58 | NUR ---
SS following for discharge planning. SS reviewed pt chart. Pt is from home with daughter and is currently requiring oxygen. No discharge needs noted at this time. SS will continue to follow for discharge planning.
[2018-12-27 15:00] VITALS: BP 100/55
[2018-12-27] MEDS: cefTRIAXone IV Push 1 GM VIAL. IVP SCH (18:24)
[2018-12-27 19:40] VITALS: BP 105/59
[2018-12-27] MEDS: ALPRAZolam 0.5 MG TABLET PO PRN (21:26)
[2018-12-27] MEDS: LACTOBACILLUS RHAMNOSUS GG 1 CAPSULE. PO SCH (21:26)
[2018-12-27] MEDS: LATANOPROST 0.005% OPHTH SOLUTION 2.5ML BOTTLE. OU SCH (21:26)
[2018-12-27 23:27] VITALS: BP 105/55
[2018-12-28 03:00] VITALS: BP 112/65
[2018-12-28] MEDS: methylPREDNISolone SOD SUCC PF 40 MG/ML VIAL. IV SCH (05:38)
[2018-12-28 07:00] VITALS: BP 124/69
[2018-12-28] MEDS: IPRATRPIUM/ALBUTEROL 0.5/2.5MG 3 ML NEBU. NEB SCH ×2 (07:40→12:16)
[2018-12-28] MEDS: BUDESONIDE 0.5 MG/2 ML NEBU. NEB SCH (07:41)
[2018-12-28] MEDS: BENZONATATE 100 MG CAPSULE. PO SCH ×2 (08:42→14:00)
[2018-12-28] MEDS: PANTOPRAZOLE 40 MG TABLET.DR. PO SCH (08:42)
[2018-12-28] MEDS: CETIRIZINE HCL 10 MG TABLET. PO SCH (08:42)
[2018-12-28] MEDS: ASPIRIN ENTERIC COATED 81 MG TABLET.DR. PO SCH (08:42)
[2018-12-28] MEDS: LOSARTAN POTASSIUM 50 MG TABLET. PO SCH (08:43)
[2018-12-28] MEDS: LACTOBACILLUS RHAMNOSUS GG 1 CAPSULE. PO SCH (08:43)
[2018-12-28] MEDS: METOPROLOL TART IMMED RELEASE 25 MG TABLET. PO SCH (08:43)
[2018-12-28] MEDS: FLUTICASONE 50MCG/NASAL SPRAY 16GM BOTTLE. NS SCH (08:44)
[2018-12-28] MEDS: NICOTINE 14MG PATCH. TD PRN (08:50)
[2018-12-28] MEDS ORDERED: LEVO500T8 PO (10:53)
[2018-12-28] MEDS ORDERED: PRED50TA PO (10:53)
[2018-12-28 11:00] VITALS: BP 115/55
--- NOTE | 2018-12-28 11:13 | PDOC ---
PULMONARY PROGRESS NOTES Subjective less soa Vitals Vital Signs Date Time Temp Pulse Resp B/P (MAP) Pulse Ox O2 Delivery O2 Flow Rate FiO2 12/28/18 08:43 68 124/69 12/28/18 08:00 Nasal Cannula 3.0 12/28/18 07:00 98.0 22 95 98.0 General: Alert, No acute distress HEENT: Other Lungs: Wheezing (resolved) Cardiovascular: S1, S2 Abdomen: Soft, Non-tender Extremities: No Edema Skin: Warm Labs Laboratory Tests Test 12/26/18 12:40 12/26/18 16:05 12/27/18 03:32 White Blood Count 13.5 x10^3/uL (4.0-11.0) 10.6 x10^3/uL (4.0-11.0) Red Blood Count 4.64 x10^6/uL (3.50-5.40) 4.33 x10^6/uL (3.50-5.40) Hemoglobin 13.0 g/dL (12.0-15.5) 12.1 g/dL (12.0-15.5) Hematocrit 40.2 % (36.0-47.0) 37.4 % (36.0-47.0) Mean Corpuscular Volume 87 fL (79-100) 86 fL (79-100) Mean Corpuscular Hemoglobin 28 pg (25-35) 28 pg (25-35) Mean Corpuscular Hemoglobin Concent 32 g/dL (31-37) 32 g/dL (31-37) Red Cell Distribution Width 13.9 % (11.5-14.5) 14.1 % (11.5-14.5) Platelet Count 268 x10^3/uL (140-400) 252 x10^3/uL (140-400) Neutrophils (%) (Auto) 81 % (31-73) 92 % (31-73) Lymphocytes (%) (Auto) 9 % (24-48) 5 % (24-48) Monocytes (%) (Auto) 7 % (0-9) 2 % (0-9) Eosinophils (%) (Auto) 3 % (0-3) 0 % (0-3) Basophils (%) (Auto) 1 % (0-3) 0 % (0-3) Neutrophils # (Auto) 11.0 x10^3uL (1.8-7.7) 9.8 x10^3uL (1.8-7.7) Lymphocytes # (Auto) 1.2 x10^3/uL (1.0-4.8) 0.6 x10^3/uL (1.0-4.8) Monocytes # (Auto) 0.9 x10^3/uL (0.0-1.1) 0.2 x10^3/uL (0.0-1.1) Eosinophils # (Auto) 0.4 x10^3/uL (0.0-0.7) 0.0 x10^3/uL (0.0-0.7) Basophils # (Auto) 0.1 x10^3/uL (0.0-0.2) 0.0 x10^3/uL (0.0-0.2) Prothrombin Time 13.4 SEC (11.7-14.0) Prothromb Time International Ratio 1.1 (0.8-1.1) Activated Partial Thromboplast Time 30 SEC (24-38) Sodium Level 143 mmol/L (136-145) 141 mmol/L (136-145) Potassium Level 4.3 mmol/L (3.5-5.1) 4.6 mmol/L (3.5-5.1) Chloride Level 104 mmol/L (98-107) 105 mmol/L (98-107) Carbon Dioxide Level 30 mmol/L (21-32) 29 mmol/L (21-32) Anion Gap 9 (6-14) 7 (6-14) Blood Urea Nitrogen 13 mg/dL (7-20) 20 mg/dL (7-20) Creatinine 0.7 mg/dL (0.6-1.0) 0.9 mg/dL (0.6-1.0) Estimated GFR (Cockcroft-Gault) 82.3 61.5 BUN/Creatinine Ratio 19 (6-20) Glucose Level 127 mg/dL (70-99) 182 mg/dL (70-99) Lactic Acid Level 0.7 mmol/L (0.4-2.0) 0.9 mmol/L (0.4-2.0) Calcium Level 9.4 mg/dL (8.5-10.1) 9.3 mg/dL (8.5-10.1) Magnesium Level 2.1 mg/dL (1.8-2.4) Total Bilirubin 0.4 mg/dL (0.2-1.0) Aspartate Amino Transf (AST/SGOT) 14 U/L (15-37) Alanine Aminotransferase (ALT/SGPT) 27 U/L (14-59) Alkaline Phosphatase 97 U/L (46-116) Creatine Kinase 41 U/L (26-192) Creatine Kinase MB (Mass) 1.6 ng/mL (0.0-3.6) Creatine Kinase MB Relative Index % (0-4) Troponin I Quantitative < 0.017 ng/mL (0.000-0.055) RA-Qsx-N-Type Natriuretic Peptide 419 pg/mL (0-124) Total Protein 6.4 g/dL (6.4-8.2) Albumin 3.5 g/dL (3.4-5.0) Albumin/Globulin Ratio 1.2 (1.0-1.7) Thyroid Stimulating Hormone (TSH) 1.161 uIU/mL (0.358-3.74) Segmented Neutrophils % 90 % (35-66) Band Neutrophils % 2 % (0-9) Lymphocytes % 5 % (24-48) Monocytes % 3 % (0-10) Platelet Estimate Adequate (ADEQUATE) Medications Active Scripts Medications Dose Route/Sig Max Daily Dose Days Date Category Dose Instructions Jing Allergy (Fexofenadine Hcl) 180 Mg Tablet 1 Tab PO DAILY 12/26/18 Reported Flonase Allergy Relief (Fluticasone Propionate) 9.9 Ml [place].susp 2 Sprays NS DAILY 12/26/18 Reported [place] 5-325 Tablet (Acetaminophen/Hydrocodone Bitart) 1 Each Tablet 1 Tab PO Q6-8HRS PRN 12/23/18 Rx Prednisone 20 Mg Tablet 20 Mg PO DAILY 10 12/16/18 Rx Culturelle (Lactobacillus Rhamnosus Gg) 1 Each Cap.sprink 1 Cap PO BID 30 12/16/18 Rx [Pantoprazole] 40 MG Tablet.dr 40 Mg PO DAILYAC 30 12/16/18 Rx [Lido:Maalox 1:1] 20 ML Oral.susp 20 Ml PO PRN QID PRN 10 12/16/18 Rx Budesonide 0.5 Mg/2 Ml Ampul.neb 0.5 Mg NEB RTBID 30 12/16/18 Rx [Nicotine 14MG] 1 PATCH Patch 1 Patch TD PRN DAILY PRN 30 12/16/18 Rx Duoneb 0.5-3(2.5) Mg/3 Ml (Albuterol/Ipratropium) 3 Ml Ampul.neb 3 Ml NEB RTQID 30 12/16/18 Rx Doxycycline Hyclate 100 Mg Tablet 100 Mg PO BID 10 12/16/18 Rx Proair Hfa Inhaler (Albuterol Sulfate) 8.5 Gm Hfa.aer.ad 2 Puff INH PRN Q6HRS PRN 12/12/18 Reported Alprazolam 0.5 Mg Tablet 0.5 Mg PO PRN Q12HR PRN 12/12/18 Reported Aspir-Low (Aspirin) 81 Mg Tablet.dr 1 Tab PO DAILY 09/04/18 Reported Tessalon Perle (Benzonatate) 100 Mg Capsule 21 Cap PO TID 08/22/18 Rx Vitamin D2 (Ergocalciferol (Vitamin D2)) 50,000 Unit Capsule 50,000 Unit PO WEEKLY 08/21/18 Reported Latanoprost 2.5 Ml Drops 1 Drop EACHEYE QHS 08/21/18 Reported Metoprolol Tartrate 25 Mg Tablet 25 Mg PO BID 05/06/14 Reported 1/2 tablet twice daily Losartan Potassium (Losartan Potassium) 25 Mg Tablet 100 Mg PO DAILY 05/06/14 Reported Impression . 1. Dyspnea with acute hypoxic respiratory failure secondary to acute exacerbation of chronic obstructive pulmonary disease. The patient uses oxygen only at night and now requiring 2 liters. 2. Acute bronchitis. No definite consolidation seen on the chest x-ray. 3. Forty years of tobaccoism. 4. Recent ct chest 12/14/18 with no nodules Plan . 1. Continue with present oxygen. 2. Continue DuoNebs. 3. empiric antibiotic. 4. Pulmicort. 5. low dose steroids. 6. Smoking cessation counseling provided and she is motivated to quit cigarettes. 7. PFTs as an outpatient. 8. She may need a 6-minute walk at the time of discharge. 9. Discussed with SHIRA. gabo with ne RAGINI Mcguire MD Dec 28, 2018 11:13
--- NOTE | 2018-12-28 11:35 | PDOC3 ---
Discharge Summary Visit Information Date of Admission: December 26, 2018 Date of Discharge: Dec 28, 2018 Admitting Diagnosis: COPD exacerbation Final Diagnosis Problems Medical Problems: (1) COPD exacerbation Status: Acute (2) Smoking addiction Status: Acute Brief Hospital Course Allergies Allergies Coded Allergies Type Severity Reaction Last Updated Verified latex Allergy Intermediate Itching 09/04/18 Yes Vital Signs Vital Signs Date Time Temp Pulse Resp B/P (MAP) Pulse Ox O2 Delivery O2 Flow Rate FiO2 12/28/18 11:00 98.4 66 22 115/55 (75) 94 Nasal Cannula 3.0 98.4 Lab Results Laboratory Tests Test 12/26/18 12:40 12/26/18 16:05 12/27/18 03:32 White Blood Count 13.5 x10^3/uL (4.0-11.0) 10.6 x10^3/uL (4.0-11.0) Red Blood Count 4.64 x10^6/uL (3.50-5.40) 4.33 x10^6/uL (3.50-5.40) Hemoglobin 13.0 g/dL (12.0-15.5) 12.1 g/dL (12.0-15.5) Hematocrit 40.2 % (36.0-47.0) 37.4 % (36.0-47.0) Mean Corpuscular Volume 87 fL (79-100) 86 fL (79-100) Mean Corpuscular Hemoglobin 28 pg (25-35) 28 pg (25-35) Mean Corpuscular Hemoglobin Concent 32 g/dL (31-37) 32 g/dL (31-37) Red Cell Distribution Width 13.9 % (11.5-14.5) 14.1 % (11.5-14.5) Platelet Count 268 x10^3/uL (140-400) 252 x10^3/uL (140-400) Neutrophils (%) (Auto) 81 % (31-73) 92 % (31-73) Lymphocytes (%) (Auto) 9 % (24-48) 5 % (24-48) Monocytes (%) (Auto) 7 % (0-9) 2 % (0-9) Eosinophils (%) (Auto) 3 % (0-3) 0 % (0-3) Basophils (%) (Auto) 1 % (0-3) 0 % (0-3) Neutrophils # (Auto) 11.0 x10^3uL (1.8-7.7) 9.8 x10^3uL (1.8-7.7) Lymphocytes # (Auto) 1.2 x10^3/uL (1.0-4.8) 0.6 x10^3/uL (1.0-4.8) Monocytes # (Auto) 0.9 x10^3/uL (0.0-1.1) 0.2 x10^3/uL (0.0-1.1) Eosinophils # (Auto) 0.4 x10^3/uL (0.0-0.7) 0.0 x10^3/uL (0.0-0.7) Basophils # (Auto) 0.1 x10^3/uL (0.0-0.2) 0.0 x10^3/uL (0.0-0.2) Prothrombin Time 13.4 SEC (11.7-14.0) Prothromb Time International Ratio 1.1 (0.8-1.1) Activated Partial Thromboplast Time 30 SEC (24-38) Sodium Level 143 mmol/L (136-145) 141 mmol/L (136-145) Potassium Level 4.3 mmol/L (3.5-5.1) 4.6 mmol/L (3.5-5.1) Chloride Level 104 mmol/L (98-107) 105 mmol/L (98-107) Carbon Dioxide Level 30 mmol/L (21-32) 29 mmol/L (21-32) Anion Gap 9 (6-14) 7 (6-14) Blood Urea Nitrogen 13 mg/dL (7-20) 20 mg/dL (7-20) Creatinine 0.7 mg/dL (0.6-1.0) 0.9 mg/dL (0.6-1.0) Estimated GFR (Cockcroft-Gault) 82.3 61.5 BUN/Creatinine Ratio 19 (6-20) Glucose Level 127 mg/dL (70-99) 182 mg/dL (70-99) Lactic Acid Level 0.7 mmol/L (0.4-2.0) 0.9 mmol/L (0.4-2.0) Calcium Level 9.4 mg/dL (8.5-10.1) 9.3 mg/dL (8.5-10.1) Magnesium Level 2.1 mg/dL (1.8-2.4) Total Bilirubin 0.4 mg/dL (0.2-1.0) Aspartate Amino Transf (AST/SGOT) 14 U/L (15-37) Alanine Aminotransferase (ALT/SGPT) 27 U/L (14-59) Alkaline Phosphatase 97 U/L (46-116) Creatine Kinase 41 U/L (26-192) Creatine Kinase MB (Mass) 1.6 ng/mL (0.0-3.6) Creatine Kinase MB Relative Index % (0-4) Troponin I Quantitative < 0.017 ng/mL (0.000-0.055) BE-Ekg-W-Type Natriuretic Peptide 419 pg/mL (0-124) Total Protein 6.4 g/dL (6.4-8.2) Albumin 3.5 g/dL (3.4-5.0) Albumin/Globulin Ratio 1.2 (1.0-1.7) Thyroid Stimulating Hormone (TSH) 1.161 uIU/mL (0.358-3.74) Segmented Neutrophils % 90 % (35-66) Band Neutrophils % 2 % (0-9) Lymphocytes % 5 % (24-48) Monocytes % 3 % (0-10) Platelet Estimate Adequate (ADEQUATE) Brief Hospital Course This is an elderly female who continues to smoke she has end-stage COPD in fact wears oxygen at home as needed Today she's been very short of breath and coughing Her family is upset with her because his been going on for couple days and she didn't want with Clinically appears she has respiratory failure Rates her symptoms at 10 out 10 is worse with moving better with sitting still she tried increasing her home meds that and work she describes as irritating She also scheduled have an outpatient stress test for him with patient consult cardiology and pulmonary Patient seen in consultation by pulmonary and was started on broad spectrum antibiotics and steroids. SHe responded slowly given her significant disease. Patient continues to smoke mroe or less a pack a day, counseling was done prior to discharge. PAtient will be assessed with a 6 minute wlak test prior to discharge. Signs and symptoms of alarm discussed in detail all concerns addressed to the best of my abilities. Lungs with decreased breath sounds no crackles ronchi or rales present cvs s1s2 rr no murmurs Discharge Information Condition at Discharge: Improved Follow Up: Weeks Disposition/Orders: D/C to Home Scheduled Aspirin (Aspir-Low) 81 Mg Tablet.dr, 1 TAB PO DAILY for THINNER, #30 Ref 3 (Reported) Entered as Reported by: KAELA SHINE on 09/04/18 0758 Last Action: Continued on 12/26/181834 by BARRIE MEZA Benzonatate (Tessalon Perle) 100 Mg Capsule, 21 CAP PO TID for cough, #21 Prescribed by: ROLAND JOHNSTON on 08/22/18 1152 Last Action: Converted on 12/26/181834 by BARRIE MEZA Budesonide (Budesonide) 0.5 Mg/2 Ml Ampul.neb, 0.5 MG NEB RTBID for copd for 30 Days, #60 Prescribed by: MONSE FERNANDO MD on 12/16/18 1115 Last Action: Continued on 12/26/181834 by BARRIE MEZA Ergocalciferol (Vitamin D2) (Vitamin D2) 50,000 Unit Capsule, 50,000 UNIT PO WEEKLY for SUPPLEMENT, (Reported) Entered as Reported by: RONA DAVID on 08/21/18 1316 Last Action: Continued on 12/26/181834 by BARRIE MEZA Fexofenadine Hcl (Jing Allergy) 180 Mg Tablet, 1 TAB PO DAILY for ALLERGIES , #30 Ref 2 (Reported) Entered as Reported by: BARRIE MEZA on 12/26/18 153 Last Taken: Unknown Dose on 12/26/18 Last Action: Converted on 12/26/181834 by BARRIE MEZA Fluticasone Propionate (Flonase Allergy Relief) 9.9 Ml [place].susp, 2 SPRAYS NS DAILY for ALLERGIES, (Reported) Entered as Reported by: BARRIE MEZA on 12/26/18 153 Last Taken: Unknown Dose on 12/26/18 Last Action: Converted on 12/26/181834 by BARRIE MEZA Ipratropium/Albuterol Sulfate (Duoneb 0.5-3(2.5) Mg/3 Ml) 3 Ml Ampul.neb, 3 ML NEB RTQID for copd for 30 Days, #120 Prescribed by: MONSE FERNANDO MD on 12/16/18 1115 Last Action: Continued on 12/26/181834 by BARRIE MEZA Lactobacillus Rhamnosus Gg (Culturelle) 1 Each Cap.sprink, 1 CAP PO BID for supplement for 30 Days, #60 Prescribed by: MONSE FERNANDO MD on 12/16/181114 Latanoprost (Latanoprost) 2.5 Ml Drops, 1 DROP EACHEYE QHS for GLACOMA , #7.5 Ref 3 (Reported) Entered as Reported by: RONA DAVID on 08/21/18 1315 Last Action: Converted on 12/26/181834 by BARRIE MEZA Levofloxacin (Levofloxacin) 500 Mg Tablet, 1 TAB PO DAILY for COPD, #3 Prescribed by: SELENA MCMULLEN MD on 12/28/18 1053 Losartan Potassium (Losartan Potassium ) 25 Mg Tablet, 100 MG PO DAILY, #60 (Reported) Entered as Reported by: JOHNNIE RIVERA on 05/06/14 184 Last Action: Continued on 12/26/181834 by BARRIE MEZA Metoprolol Tartrate (Metoprolol Tartrate) 25 Mg Tablet, 25 MG PO BID for FOR HYPERTENSION, #60 Ref 0 (Reported) 1/2 tablet twice daily Entered as Reported by: JOHNNIE RIVERA on 05/06/141930 Last Action: Continued on 12/26/181834 by BARRIE MEZA Prednisone (Prednisone) 50 Mg Tablet, 1 TAB PO DAILY for COPD, #3 Prescribed by: SELENA MCMULLEN MD on 12/28/18 1053 [Pantoprazole] 40 MG TABLET.DR, 40 MG PO DAILYAC for stomach acid for 30 Days, #30 Prescribed by: MONSE FERNANDO MD on 12/16/18 1115 Last Action: Converted on 12/26/181834 by BARRIE MEZA Scheduled PRN Albuterol Sulfate (Proair Hfa Inhaler) 8.5 Gm Hfa.aer.ad, 2 PUFF INH PRN Q6HRS PRN for SHORTNESS OF BREATH, Ref 0 (Reported) Entered as Reported by: NICK SCHUMACHER on 12/12/182229 Last Action: Reviewed on 12/26/181511 by BARRIE MEZA Alprazolam (Alprazolam) 0.5 Mg Tablet, 0.5 MG PO PRN Q12HR PRN for ANXIETY / AGITATION, Ref 0 (Reported) Entered as Reported by: NICK SCHUMACHER on 12/12/182229 Last Action: Continued on 12/26/181834 by BARRIE MEZA Hydrocodone/[place] 5-325 ([place] 5-325 Tablet) 1 Each Tablet, 1 TAB PO Q6-8HRS PRN for PAIN, #8 Prescribed by: Korin Parr APRN on 12/23/18918 [Lido:Maalox 1:1] 20 ML [place].SUSP, 20 ML PO PRN QID PRN for CHEST PAIN, 1ST CHOICE for 10 Days, #60 Prescribed by: MONSE FERNANDO MD on 12/16/181114 Last Action: Converted on 12/26/181834 by BARRIE MEZA [Nicotine 14MG] 1 PATCH PATCH, 1 PATCH TD PRN DAILY PRN for SMOKING CESSATION for 30 Days, #30 Prescribed by: MONSE FERNANDO MD on 12/16/181114 Last Action: Converted on 12/26/181834 by BARRIE MEZA Discontinued Medications Doxycycline Hyclate (Doxycycline Hyclate) 100 Mg Tablet, 100 MG PO BID for cough for 10 Days, #20 Prescribed by: MONSE FERNANDO MD on 12/16/181114 Prednisone (Prednisone) 20 Mg Tablet, 20 MG PO DAILY for copd for 10 Days, #10 Prescribed by: MONSE FERNANDO MD on 12/16/181114 SELENA MCMULLEN MD Dec 28, 2018 11:35
[2018-12-28] MEDS ORDERED: ACETAMINOPHEN 325 MG TABLET. PO PRN (14:00)
--- NOTE | 2018-12-28 14:44 | NUR ---
Discharge Note: ANA GERARD Discharge instructions and discharge home medications reviewed with Patient and a copy given. All questions have been answered and understanding verbalized. The following instructions and handouts were given: Patient given education regarding prednisone and levaquin. Discontinued lines and drains: Iv removed per protocol. Patient discharged home. Picked up by daughter.
[2018-12-29] MEDS ORDERED: methylPREDNISolone SOD SUCC PF 40 MG/ML VIAL. IV SCH (09:00)
[2019-01-02] MEDS ORDERED: ERGOCALCIFEROL (VITAMIN D2) 50,000 UNIT CAPSULE. PO SCH (09:00)
[2019-01-08] MEDS ORDERED: BUDE180A IH (11:11)
== END 2018-12-28 14:35 | disposition home or self-care (01) | DRG 871 ==
LOC: ER 12:20 → 5 NORTH 14:00 → 2 SOUTH 20:20
PROVIDERS: ADMIT Internal Medicine; ATTEND Internal Medicine
DX: A41.9 Sepsis, unspecified organism (principal); J96.01 Acute respiratory failure with hypoxia; J44.1 Chronic obstructive pulmonary disease with (acute) exacerbation; J44.0 Chronic obstructive pulmonary disease with (acute) lower respiratory infection; J20.9 Acute bronchitis, unspecified; F41.9 Anxiety disorder, unspecified; I10 Essential (primary) hypertension; H40.9 Unspecified glaucoma; F17.210 Nicotine dependence, cigarettes, uncomplicated; Z90.49 Acquired absence of other specified parts of digestive tract; Z99.81 Dependence on supplemental oxygen; Z91.040 Latex allergy status; Z71.6 Tobacco abuse counseling; Z82.5 Family history of asthma and other chronic lower respiratory diseases
CPT/HCPCS: 36415; 71045; 80048; 80053; 82553; 83605; 83735; 83880; 84443; 84484; 85007; 85025; 85610; 85730; 87040; 93005; 94618; 94640; 94644; 94760; 96374; J0696; J2920; J2930; J7613; J7620; J7626; 99285-25

== ENCOUNTER → 2018-12-30 | Outpatient (CLI) | payer MEDICARE ==
[2018-12-28 11:00] VITALS: BP 115/55
[~2018-12-30] MED LIST changes: +BUDE180A IH; +FEXO180T81 PO; +FLUT9.9S NS; +LEVO500T8 PO; +PRED50TA PO; +REGADENOSON 0.4 MG/5 ML DISP.SYRIN. IV ONE
--- NOTE | 2018-12-30 13:57 | RAD ---
MR#: [id number] Date of Study: 12/30/2018 Ordering Physician: AMBER VELAZQUEZ Referring Physician: LIZETTE GARZA Tech: Leticia Posada RT (R) (N) APPROVED REPORT Test Type: Pharmacological Stress Nurse/Tech: Alba Vargas RN Test Indications: CP 2 weeks ago Cardiac History: Hypertension, current smoker, COPD, on ASA Medications: See Electronic Medical Record Medical History: See Electronic Medical Record Resting Heart Rate: 66 bpm Resting Blood Pressure: 161/74mmHg Pretest Chest Pain: No chest pain Nurse/Tech Notes S1S2, Exp wheezing LLs, 90% at RA. administered 2 L Oxygen-98- 100%, SALAS (09/08) Consent: The procedure was explained to the patient in lay terms. Informed consent was witnessed. Nain eout was entered into [employer]. History and Stress Test performed by Alba Vargas RN Pharm. Details Pharmacologic stress testing was performed using 0.4mg per 5ml of regadenoson given intravenously ove r 7-10 seconds. Stress Symptoms Dyspnea, Flushing, Coughing, SALAS (12/06) POST EXERCISE Reason for Termination: Infusion complete Max HR: 91 bpm Max Blood Pressure: 162/69mmHg Chest Pain: No. Arrhythmia: No. INTERPRETATION Stress EKG Conclusion: The resting EKG shows a sinus rhythm with a small septal Q-wave and nonspecifi c ST segment changes. The stress EKG shows no significant changes from baseline. No EKG evidence of stressed induced ischemia. Imaging Protocol IMAGE PROTOCOL: Rest Tc-99m/stress Tc-99m 1 day Rest: Stress: Viability: Radiopharm.Tc99m [id number] Sestamibi Dose10.9mCi 31mCi Duration 15min. 10min. Img Date 12/30/2018 12/30/2018 Inj-Img [id number]. 60min. Rest Admin Site:IV - Right AntecubitalAdministrator:YOVANNY Mcarthur Stress Admin Site: IV - Right AntecubitalAdministrator: YOVANNY Mcarthur STRESS DATA End Diast. Vol.97.0mlAv. Heart Rate70.0bpm End Syst. Vol.23.0mlCO Index BSA0.0L/min Myocardial Jcbg036.0gEject. Dhttvgvz56.0% Stress Rates Pk. Fill Rate3.20EDV/secLVtime Pk. Fill 226.80msec Pk. Empty Rate4.00ESV/secLVtime Pk. Xhheb578.16msec 1/3 Pk. Fill1.69EDV/sec Stress Scores Regional WT0.00Summed WT0.00 Regional WM0.00Summed WM0.00 LV Perfusion The stress scans showed no significant defects. The rest scans showed no significant defects. Nuclear imaging shows no reversible ischemia or infarct Wall Motion Left ventricular systolic function is normal with no regional wall motion abnormalities and ejection fraction of greater than 70%. LV Perf. Quant 17 Seg. SSS0.00 17 Seg. SRS0.00 17 Seg. SDS0.00 Stress Defect Extent (% LAD)0.00Rest Defect Extent (% LAD)0.00Rev. Defect Extent (% LAD)0.00 Stress Defect Extent (% LCX) 0.00Rest Defect Extent (% LCX)0.00Rev. Defect Extent (% LCX)0.00 Stress Defect Extent (% RCA)0.00Rest Defect Extent (% RCA)0.00Rev. Defect Extent (% RCA)0.00 Stress Defect Extent (% CASSIUS)0.00Rest Defect Extent (% CASSIUS)0.00Rev. Defect Extent (% CASSIUS)0.00 Conclusion 1. No EKG evidence of stress-induced ischemia. 2. Nuclear imaging shows no reversible ischemia or infarct. 3. Normal left ventricular systolic function with an ejection fraction of greater than 70%. 4. Low risk Lexiscan nuclear stress test. Signed by : Marcial Cabral MD Electronically Approved : 12/30/2018 13:57:18
== END | disposition home or self-care (01) ==
LOC: NM 08:57
PROVIDERS: ATTEND Internal Medicine Cardiovascular Disease
DX: R07.9 Chest pain, unspecified (principal); J44.9 Chronic obstructive pulmonary disease, unspecified; I10 Essential (primary) hypertension; F17.200 Nicotine dependence, unspecified, uncomplicated; Z79.01 Long term (current) use of anticoagulants
CPT/HCPCS: 78452; 93017; A9500; J2785

== ENCOUNTER → 2019-02-11 | Outpatient (CLI) | payer MEDICARE ==
[2019-01-08 11:00] VITALS: BP 108/60
[~2019-02-11] MED LIST changes: -REGADENOSON 0.4 MG/5 ML DISP.SYRIN. IV ONE
--- NOTE | 2019-02-11 09:06 | RAD ---
PQRS Compliance statement: One or more of the following individualized dose reduction techniques were utilized for this examination: 1. Automated exposure control. 2. Adjustment of the mA and/or kV according to patient size. 3. Use of iterative reconstruction technique. Indication:Lung nodule follow-up. TECHNIQUE: CT chest without IV contrast with multiplanar reformats. COMPARISON: CT of chest from 12/14/2018 and from 08/21/2018 FINDINGS: Heart is normal in size. No pericardial or pleural effusion. Scattered mild atherosclerotic plaque in the thoracic aorta. No enlarged axillary or mediastinal adenopathy. Evaluation of hilar lymphadenopathy is limited due to lack of IV contrast. Mild emphysema. Stable patchy opacities in the right lung apex. Stable 3 mm nodule in the right upper lobe (series 2 image 28). Contrast appearance of the visualized sections through the liver, spleen, pancreas, adrenals and kidneys are within normal limits. Mild atherosclerotic plaque in the visualized abdominal aorta. No suspicious bony lesion. IMPRESSION: 1. Stable right apical patchy opacity most likely scarring. Mild emphysema. 2. Stable right upper lobe nodule (3 mm) which is more solid, previously more groundglass. Follow-up CT chest in 6 months recommended. Electronically signed by: Polo Rosen DO (02/11/2019 9:02 AM) [facility]
== END | disposition home or self-care (01) ==
LOC: CT 08:13
PROVIDERS: ATTEND Internal Medicine Critical Care Medicine
DX: I70.0 Atherosclerosis of aorta (principal); J43.9 Emphysema, unspecified; R91.1 Solitary pulmonary nodule; R59.0 Localized enlarged lymph nodes
CPT/HCPCS: 71250

== ENCOUNTER 2019-04-09 22:07 | Emergency (ER) | payer MEDICARE ==
[~2019-04-09] VITALS: Ht 167.6 cm; Wt 69.4 kg
[2019-04-09 22:35] LABS: BASO % 1 % (0-3); EOS # 0.1 x10^3/uL (0.0-0.7); EOS % 2 % (0-3); HEMATOCRIT 34.9 % (36.0-47.0); HEMOGLOBIN 11.7 g/dL (12.0-15.5); LYMPH # 2.6 x10^3/uL (1.0-4.8); LYMPH % 35 % (24-48); MEAN CORPUSCULAR HEMOGLOBIN 29 pg (25-35); MEAN CORPUSCULAR HGB CONC 34 g/dL (31-37); MEAN CORPUSCULAR VOLUME 86 fL (79-100); MONO # 0.6 x10^3/uL (0.0-1.1); MONO % 8 % (0-9); NEUT # 4.2 x10^3/uL (1.8-7.7); NEUT % 55 % (31-73); PLATELET COUNT 209 x10^3/uL (140-400); RED BLOOD COUNT 4.08 x10^6/uL (3.50-5.40); RED CELL DISTRIBUTION WIDTH 14.3 % (11.5-14.5); WHITE BLOOD COUNT 7.6 x10^3/uL (4.0-11.0)
[2019-04-09 22:43] LABS: CALCIUM 9.1 mg/dL (8.5-10.1); CREATININE 0.9 mg/dL (0.6-1.0); GFR 61.5; POTASSIUM 3.7 mmol/L (3.5-5.1)
[2019-04-09 22:49] LABS: ALBUMIN 3.4 g/dL (3.4-5.0); ALBUMIN/GLOBULIN RATIO 1.2 (1.0-1.7); TOTAL BILIRUBIN 0.2 mg/dL (0.2-1.0); TOTAL PROTEIN 6.3 g/dL (6.4-8.2)
[2019-04-09] MEDS ORDERED: IPRATRPIUM/ALBUTEROL 0.5/2.5MG 3 ML NEBU. NEB ONE (23:00)
--- NOTE | 2019-04-09 23:28 | PHYS DOC ---
Past Medical History Past Medical History: Anxiety, COPD, Hypertension, Other Additional Past Medical Histor: chronic cough, glaucoma, tremors Past Surgical History: Cholecystectomy, Other Additional Past Surgical Histo: left kidney surgery (minor) Additional Information: QUIT ABOUT 4 MONTHS AGO Alcohol Use: None Drug Use: None Adult General Chief Complaint Chief Complaint: DYSPNEA/RESPIRATOY DISTRESS [facility] HPI Patient is a 73-year-old female who presents with complaint of elevated heart rate at home. Patient was recently seen by her primary care doctor and was treated for respiratory infection. She indicates that he was given a Z-Bart as well as steroids. She states that she finished steroids and is on her last day of the Z-Bart. She does admit to a cough that is intermittently productive but she states it is very much clear. She denies any fever. Currently she denies any chest pain or shortness of breath. She states that she really just came in because her family wanted her to be checked out tonight.[] Review of Systems Review of Systems Constitutional: Denies fever or chills [] Respiratory: Complains of cough without shortness of breath [] Cardiovascular: No additional information not addressed in HPI [] GI: Denies abdominal pain, nausea, vomiting or diarrhea [] Integument: Denies rash or skin lesions [] Neurologic: Denies headache, focal weakness or sensory changes [] All other systems were reviewed and found to be within normal limits, except as documented in this note. Current Medications Current Medications Current Medications Medications (Trade) Dose Ordered Sig/Vincent Start Time Stop Time Status Last Admin Dose Admin Albuterol/ Ipratropium (Duoneb) 3 ml 1X ONCE 04/09/19 23:00 04/09/19 23:01 DC 04/09/19 22:52 3 ML Allergies Allergies Allergies Coded Allergies Type Severity Reaction Last Updated Verified latex Allergy Intermediate Itching 09/04/18 Yes Physical Exam Physical Exam Constitutional: Well developed, well nourished, no acute distress, non-toxic appearance. [] HENT: Normocephalic, atraumatic, bilateral external ears normal, oropharynx moist, no oral exudates, nose normal. [] Eyes: PERRLA, EOMI, conjunctiva normal, no discharge. [] Neck: Normal range of motion, no tenderness, supple, no stridor. [] Cardiovascular: Regular rate and rhythm[] Lungs & Thorax: Fine rhonchi are noted bilaterally with very mild inspiratory and expiratory wheezes to auscultation [] Abdomen: Bowel sounds normal, soft, no tenderness. [] Skin: Warm, dry, no erythema, no rash. [] Extremities: No tenderness, no cyanosis, no clubbing, ROM intact, no edema. [] Neurologic: Alert and oriented X 3, no focal deficits noted. [] Current Patient Data Vital Signs Vital Signs Date Time Temp Pulse Resp B/P (MAP) Pulse Ox O2 Delivery O2 Flow Rate FiO2 04/09/19 23:31 76 20 117/67 (84) 95 Room Air 04/09/19 22:53 2.0 04/09/19 22:09 97.7 97.7 Lab Values Laboratory Tests Test 04/09/19 22:00 White Blood Count 7.6 x10^3/uL (4.0-11.0) Red Blood Count 4.08 x10^6/uL (3.50-5.40) Hemoglobin 11.7 g/dL (12.0-15.5) L Hematocrit 34.9 % (36.0-47.0) L Mean Corpuscular Volume 86 fL (79-100) Mean Corpuscular Hemoglobin 29 pg (25-35) Mean Corpuscular Hemoglobin Concent 34 g/dL (31-37) Red Cell Distribution Width 14.3 % (11.5-14.5) Platelet Count 209 x10^3/uL (140-400) Neutrophils (%) (Auto) 55 % (31-73) Lymphocytes (%) (Auto) 35 % (24-48) Monocytes (%) (Auto) 8 % (0-9) Eosinophils (%) (Auto) 2 % (0-3) Basophils (%) (Auto) 1 % (0-3) Neutrophils # (Auto) 4.2 x10^3/uL (1.8-7.7) Lymphocytes # (Auto) 2.6 x10^3/uL (1.0-4.8) Monocytes # (Auto) 0.6 x10^3/uL (0.0-1.1) Eosinophils # (Auto) 0.1 x10^3/uL (0.0-0.7) Basophils # (Auto) 0.0 x10^3/uL (0.0-0.2) Sodium Level 146 mmol/L (136-145) H Potassium Level 3.7 mmol/L (3.5-5.1) Chloride Level 108 mmol/L (98-107) H Carbon Dioxide Level 29 mmol/L (21-32) Anion Gap 9 (6-14) Blood Urea Nitrogen 16 mg/dL (7-20) Creatinine 0.9 mg/dL (0.6-1.0) Estimated GFR (Cockcroft-Gault) 61.5 BUN/Creatinine Ratio 18 (6-20) Glucose Level 113 mg/dL (70-99) H Calcium Level 9.1 mg/dL (8.5-10.1) Total Bilirubin 0.2 mg/dL (0.2-1.0) Aspartate Amino Transferase (AST) 12 U/L (15-37) L Alanine Aminotransferase (ALT) 17 U/L (14-59) Alkaline Phosphatase 65 U/L (46-116) Troponin I Quantitative < 0.017 ng/mL (0.000-0.055) Total Protein 6.3 g/dL (6.4-8.2) L Albumin 3.4 g/dL (3.4-5.0) Albumin/Globulin Ratio 1.2 (1.0-1.7) Laboratory Tests 04/09/19 22:00 Laboratory Tests 04/09/19 22:00 EKG EKG [] Interpretation Time: EKG demonstrates normal sinus rhythm with rate of 71. Radiology/Procedures Radiology/Procedures [] Impressions: Chest x-ray demonstrates no acute process. Course & Med Decision Making Course & Med Decision Making Pertinent Labs and Imaging studies reviewed. (See chart for details) [] Dragon Disclaimer Dragon Disclaimer This electronic medical record was generated, in whole or in part, using a voice recognition dictation system. Departure Departure Impression: Primary Impression: Acute bronchitis Disposition: 01 HOME, SELF-CARE Condition: STABLE Referrals: MATEO LOPEZ MD (PCP) Patient Instructions: Acute Bronchitis Additional Instructions: Continue taking medications already prescribed and follow-up with your primary care provider in the next few days. Problem Qualifiers Primary Impression: Acute bronchitis Bronchitis organism: unspecified organism Qualified Codes: J20.9 - Acute bronchitis, unspecified OLGA WADE Jr. DO Apr 09, 2019 23:28
[2019-04-09 23:31] VITALS: BP 117/67
--- NOTE | 2019-04-10 01:03 | RAD ---
PA and lateral chest radiographs 04/09/2019 CLINICAL HISTORY: Shortness of breath. Bronchitis. COPD. PA and lateral digital radiographs of chest were obtained. Comparison study is dated 01/06/2019. The cardiac silhouette is normal in size. Atherosclerotic calcification thoracic aorta is seen. The thoracic aorta is minimally tortuous. Emphysematous changes are seen involving both lungs. No acute pulmonary infiltrate is seen. No pleural effusion or pneumothorax is noted. The osseous structures are unchanged. IMPRESSION: No acute abnormality is seen. Electronically signed by: Nitish Yuen MD (04/10/2019 12:59 AM) [facility]
--- NOTE | 2019-04-10 05:40 | EKG ---
[facility] [address] [place] [address] Test Date: 2019-04-09 Test Time: 22:14:08 Pat Name: ANA GERARD Department: Room: Gender: F Production Operations Engineer: : 1945 Requested By: OLGA WADE Order Number: [id number] Reading MD: Measurements Intervals [place] Rate: 71 P: 71 [place]: 176 QRS: 36 QRSD: 80 T: 52 QT: 356 QTc: 387 Interpretive Statements SINUS RHYTHM NORMAL ECG RI6.01 Unconfirmed report No previous ECG available for comparison
== END 2019-04-09 23:51 | disposition home or self-care (01) ==
LOC: ER 22:07
DX: J20.9 Acute bronchitis, unspecified (principal); J44.9 Chronic obstructive pulmonary disease, unspecified; F41.9 Anxiety disorder, unspecified; I10 Essential (primary) hypertension; Z90.49 Acquired absence of other specified parts of digestive tract; Z87.891 Personal history of nicotine dependence; Z91.040 Latex allergy status
CPT/HCPCS: 36415; 71046; 80053; 84484; 85025; 93005; 94640; 99285; J7620; 99284

== ENCOUNTER → 2019-12-12 | Outpatient (CLI) | payer MEDICARE ==
--- NOTE | 2019-12-12 09:53 | RAD ---
Noncontrast CT scan of the chest compared to similar examination dated February 11, 2019 for lung nodule follow-up. TECHNIQUE: Contiguous helical 1 mm axial images are obtained from the thoracic inlet to the base of diaphragm. Sagittal and coronal reformations are evaluated. FINDINGS: Chronic areas of parenchymal and pleural-based consolidation the right upper lobe are unchanged in appearance and distribution of the prior examination. Pleural parenchymal scarring left apex is also stable. Emphysema is again noted, grossly stable, and affecting the right lung greater than left. Central airways are patent. The previously seen 4 mm nodule within the anterior aspect the right upper lobe is unchanged. No new lung nodules or masses are seen. No pleural effusions. No suspicious mediastinal, hilar, or axillary lymphadenopathy is seen. Vascular calcifications are seen in multiple distributions including coronary arteries and renal arteries. Evaluation of the upper abdominal organs is limited by lack of IV contrast. No gross morphologic abnormalities of the visualized liver spleen and adrenal glands. Diffuse fatty infiltration of the pancreas is noted. There is also cortical thinning seen in the kidneys which may relate to chronic medical renal insufficiency. No suspicious osteolytic or osteoblastic bone lesions. IMPRESSION: 1. Stable CT scan of the chest with unchanged patchy pleural and parenchymal areas of chronic consolidation in the right upper lung. This likely reflects benign chronic scarring, however periodic surveillance of this high risk patient at 6-12 month intervals should be considered. 2. Stable 4 mm right upper lobe nodule, benign. 3. Moderate emphysema. 4. Multifocal coronary artery atherosclerosis. PQRS Compliance Statement: One or more of the following individualized dose reduction techniques were utilized for this examination: 1. Automated exposure control 2. Adjustment of the mA and/or kV according to patient size 3. Use of iterative reconstruction technique Electronically signed by: Zeyad Armando MD (12/12/2019 9:50 AM) [facility]
== END ==
LOC: CT 09:01
PROVIDERS: ATTEND Internal Medicine Critical Care Medicine
DX: R91.1 Solitary pulmonary nodule (principal); J43.9 Emphysema, unspecified; I25.10 Atherosclerotic heart disease of native coronary artery without angina pectoris
CPT/HCPCS: 71250

== ENCOUNTER → 2020-01-14 | Outpatient (CLI) | payer MEDICARE ==
--- NOTE | 2020-01-14 15:09 | CARD ---
MR#: [id number] Date of Study: 01/14/2020 Ordering Physician: AMBER VELAZQUEZ, Referring Physician: AMBER VELAZQUEZ, Tech: Zhane Gavin APPROVED REPORT EXAM: Two-dimensional and M-mode echocardiogram with Doppler and color Doppler. Other Information Quality : AverageHR: 71bpm INDICATION COPD Hypertension/HCVD RISK FACTORS Previous smoker 2D DIMENSIONS RVDd3.1 (2.9-3.5cm)Left Atrium(2D)3.3 (1.6-4.0cm) IVSd1.1 (0.7-1.1cm)Aortic Root(2D)3.3 (2.0-3.7cm) LVDd5.0 (3.9-5.9cm)LVOT Diameter2.2 (1.8-2.4cm) PWd1.0 (0.7-1.1cm)LVDs3.3 (2.5-4.0cm) FS (%) 34.1 %SV75.4 ml Aortic Valve AoV Peak Raghu.134.4cm/sAoV VTI27.9cm AO Peak GR.7.2mmHgLVOT Peak Raghu.99.2cm/s LVOT VTI 20.50cmAO Mean GR.4mmHg MILTON (VMAX)2.00gp5OWR (VTI)2.68cm2 Mitral Valve MV E Zzcwytjb95.5cm/sMV DECEL [id number] MV A Disyvccg86.1cm/sMV E Mean Gr.1mmHg MV CVH68poN/A Ratio0.9 MVA (PHT)2.77cm2 TDI E/Lateral E'8.5E/Medial E'10.5 Pulmonary Valve PV Peak Mnftfwuv99.9cm/sPV Peak Grad.3mmHg Tricuspid Valve TR P. Kfgnxprb820ae/sTR Peak Gr.22mmHg Pulmonary Vein S1 Unwvyjlo09.4cm/sD2 Xhmqmivq42.2cm/s PVa fzwoubac518jdwj LEFT VENTRICLE The left ventricle is normal size. There is normal left ventricular wall thickness. The left ventricu lar systolic function is normal and the ejection fraction is within normal range. The Ejection Fracti on is 50-55%. There is normal LV segmental wall motion. Transmitral Doppler flow pattern is Grade I-a bnormal relaxation pattern. RIGHT VENTRICLE The right ventricle is normal size. There is normal right ventricular wall thickness. The right ventr icular systolic function is normal. ATRIA The left atrium size is normal. The right atrium size is normal. The interatrial septum is intact wit h no evidence for an atrial septal defect or patent foramen ovale as noted on 2-D or Doppler imaging. AORTIC VALVE The aortic valve is thickened but opens well. Doppler and Color Flow revealed no significant aortic r egurgitation. There is no significant aortic valvular stenosis. MITRAL VALVE The mitral valve is normal in structure and function. There is no evidence of mitral valve prolapse. There is no mitral valve stenosis. Doppler and Color Flow revealed no mitral valve regurgitation note d. TRICUSPID VALVE The tricuspid valve is normal in structure and function. Doppler and Color Flow revealed trace tricus pid regurgitation with an estimated PAP of 38 mmHg. There is no tricuspid valve stenosis. PULMONIC VALVE The pulmonic valve is not well visualized. Doppler and Color Flow revealed no pulmonic valvular regur gitation. GREAT VESSELS The aortic root is normal in size. The ascending aorta is borderline dilated. The IVC is normal in si ze and collapses >50% with inspiration. PERICARDIAL EFFUSION There is no evidence of significant pericardial effusion. Critical Notification Critical Value: No <Conclusion> The left ventricle is normal size. The left ventricular systolic function is normal and the ejection fraction is within normal range. The Ejection Fraction is 50-55%. There is normal LV segmental wall motion. Doppler and Color Flow revealed no significant aortic regurgitation. There is no significant aortic valvular stenosis. Doppler and Color Flow revealed no mitral valve regurgitation noted. Doppler and Color Flow revealed trace tricuspid regurgitation with an estimated PAP of 38 mmHg. Signed by : Marcial Cabral MD Electronically Approved : 01/14/2020 15:08:54
== END | disposition home or self-care (01) ==
LOC: ECHO 13:51
PROVIDERS: ATTEND Internal Medicine Cardiovascular Disease
DX: I10 Essential (primary) hypertension (principal)
CPT/HCPCS: 93306

== ENCOUNTER 2020-02-26 15:50 | Observation (INO) | payer MEDICARE ==
[~2020-02-26] VITALS: Ht 167.6 cm; Wt 86.7 kg
[~2020-02-26 15:50] MED LIST changes: -ALPR0.254 PO; -ASPI-886 PO; -ATOR10TA60 PO; -METO25TA2 PO; -PANT40TA77 PO; -REGADENOSON 0.4 MG/5 ML DISP.SYRIN. IV ONE; -TIOT18CA IH
[2020-02-26] MEDS ORDERED: methylPREDNISolone SOD SUCC PF 125 MG/2 ML VIAL. ONE (16:24)
--- NOTE | 2020-02-26 16:25 | PHYS DOC ---
Past Medical History Past Medical History: Anxiety, COPD, Hypertension, Other Additional Past Medical Histor: chronic cough, glaucoma, tremors Past Surgical History: Cholecystectomy, Other Additional Past Surgical Histo: left kidney surgery (minor) Smoking Status: Former Smoker Alcohol Use: None Drug Use: None General Adult EDM: Chief Complaint: SHORTNESS OF BREATH HPI: HPI: Patient is a 74 year old female who presents with states she is had increased shortness of breath since today. She also complains of left chest"achy" pain. Nothing makes her shortness of breath or chest pain worse or better. She rates the pain a 2 out of 10. States she is been using her nebulizer at home but is not helping. Patient has a history of former smoker x1 year ago, COPD, hypertension, peripheral neuropathy, acute respiratory failure, anxiety, glaucoma, cholecystectomy. Patient denies dizziness, headache, fever, visual changes, focal weakness, new numbness or tingling, new abdominal pain, dysuria symptoms, nausea, vomiting, diarrhea, constipation. Patient has 1+ increased edema in the left leg compared to the right leg. Patient states this is chronic in her leg is always like that. No calf tenderness with palpation. Patient wears 2 L normally at home and she is on 2 L here in the ED and she is 99%. Review of Systems: Review of Systems: Constitutional: Denies fever or chills. [] Eyes: Denies change in visual acuity. [] HENT: Denies nasal congestion or sore throat. [] Respiratory: Denies cough. +shortness of breath. [] Cardiovascular: left chest pain or denies edema. [] GI: Denies abdominal pain, nausea, vomiting, bloody stools or diarrhea. [] : Denies dysuria. [] Musculoskeletal: Denies back pain or joint pain. [] Integument: Denies rash. [] Neurologic: Denies headache, focal weakness or sensory changes. [] Endocrine: Denies polyuria or polydipsia. [] Lymphatic: Denies swollen glands. [] Psychiatric: Denies depression or anxiety. [] Heart Score: HEART Score for Chest Pain: HEART Score for Chest Pain Response (Comments) Value History Slighlty/Non-Suspicious 0 ECG Normal 0 Age > 65 2 Risk Factors 1 or 2 Risk Factors 1 Troponin < Normal Limit 0 Total 3 Risk Factors: Risk Factors: DM, Current or recent (<one month) smoker, HTN, HLP, family hist ory of CAD, obesity. Risk Scores: Score 0 - 3: 2.5% MACE over next 6 weeks - Discharge Home Score 4 - 6: 20.3% MACE over next 6 weeks - Admit for Clinical Observation Score 7 - 10: 72.7% MACE over next 6 weeks - Early Invasive Strategies Allergies: Allergies: Allergies Coded Allergies Type Severity Reaction Last Updated Verified latex Allergy Intermediate Itching 09/04/18 Yes Physical Exam: PE: Constitutional: Well developed, well nourished, no acute distress, non-toxic appearance. [] HENT: Normocephalic, atraumatic, bilateral external ears normal, oropharynx moist, no oral exudates, nose normal. [] Eyes: PERRLA, EOMI, conjunctiva normal, no discharge. [] Neck: Normal range of motion, no tenderness, supple, no stridor. [] Cardiovascular:Heart rate regular rhythm, no murmur [] Lungs & Thorax: Bilateral upper breath sounds clear and lower diminished to auscultation [] Abdomen: Bowel sounds normal, soft, no tenderness, no masses, no pulsatile masses. [] Skin: Warm, dry, no erythema, no rash. [] Back: No tenderness, no CVA tenderness. [] Extremities: No tenderness, no cyanosis, no clubbing, ROM intact, Left leg 1+ edema. [] Neurologic: Alert and oriented X 3, normal motor function, normal sensory function, no focal deficits noted. [] Psychologic: Affect normal, judgement normal, mood normal. [] EKG: EK and read bu Dr Walton as Sinus Rhythm and no STEMI[] Radiology/Procedures: Radiology/Procedures: [] Impression: [facility] [address] [place], [place] [id number] IMAGING REPORT Signed PATIENT: ANA GERARD ACCOUNT: [id number] : 1945 LOCATION: ER AGE: 74 SEX: F EXAM STATUS: REG ER ORD. PHYSICIAN: BRANDY WILLIAM APRN REASON: soa PROCEDURE: PORTABLE CHEST 1V Exam: Chest one view INDICATION: Short of air TECHNIQUE: Frontal view of the chest Comparisons: 04/09/2019 FINDINGS: The cardiomediastinal silhouette and pulmonary vessels are within normal limits. The lung and pleural spaces are clear. IMPRESSION: No acute cardiopulmonary process. Electronically signed by: Terrance Vora MD (02/26/2020 5:52 PM) [id number] DICTATED and SIGNED BY: TERRANCE VORA MD DATE: 02/26/201751 Course & Med Decision Making: Course & Med Decision Making Pertinent Labs and Imaging studies reviewed. (See chart for details) Alert and oriented x4. Speaks in clear full sentences but sounds breathless. Skin pink warm and dry. See HPI. Patient is given a full aspirin in the ED. Patient states that she does have a hernia in her abdomen with chronic pain that she is scheduled to see a physician for on March 03. She states this morning she had a half of an echo and she is scheduled to have the rest of the echo by Dr Tsang at 8:30 in the morning. After reevaluating the patient when she is talking to me she does sound breathless but still has clear full sentences. I asked her how she is feeling she states a little better. She states that she still has the left-sided chest pain. She states that she is feeling some dizzy and lightheadedness but she states that she felt like that when she first came in. She did not tell me this when she first got here. Patient is very anxious. I have called and spoke with Dr. Flanagan concerning this patient and she states that we can admit her for observation and she will come see her in the morning. [] Denny Disclaimer: Denny Disclaimer: This electronic medical record was generated, in whole or in part, using a voice recognition dictation system. Departure Departure Impression: Primary Impression: Chest pain Qualified Codes: R07.9 - Chest pain, unspecified Additional Impression: COPD exacerbation Disposition: ADMITTED INPATIENT Admitting Physician: Fartun Flanagan Condition: STABLE Referrals: MATEO LOPEZ MD (PCP) Justicifation of Admission Dx: Justifications for Admission: Justification of Admission Dx: Yes Comments: CHEST PAIN, CHANTALA STEWARTBRANDYGABY Dulnap APRN Feb 26, 2020 16:25
[2020-02-26] MEDS ORDERED: methylPREDNISolone SOD SUCC PF 125 MG/2 ML VIAL. IV ONE (16:30)
[2020-02-26] MEDS ORDERED: ASPIRIN 325 MG TABLET PO ONE (16:30)
[2020-02-26] MEDS ORDERED: ALBUTEROL SULFATE 2.5 MG/3 ML NEBU. NEB ONE (16:30)
[2020-02-26 16:46] LABS: BASO # 0.1 x10^3/uL (0.0-0.2); BASO % 1 % (0-3); EOS # 0.1 x10^3/uL (0.0-0.7); EOS % 2 % (0-3); HEMATOCRIT 33.2 % (36.0-47.0); HEMOGLOBIN 11.1 g/dL (12.0-15.5); LYMPH # 1.1 x10^3/uL (1.0-4.8); LYMPH % 16 % (24-48); MEAN CORPUSCULAR HEMOGLOBIN 28 pg (25-35); MEAN CORPUSCULAR HGB CONC 33 g/dL (31-37); MEAN CORPUSCULAR VOLUME 85 fL (79-100); MONO # 0.5 x10^3/uL (0.0-1.1); MONO % 7 % (0-9); NEUT # 4.9 x10^3/uL (1.8-7.7); NEUT % 74 % (31-73); PLATELET COUNT 200 x10^3/uL (140-400); RED BLOOD COUNT 3.93 x10^6/uL (3.50-5.40); RED CELL DISTRIBUTION WIDTH 13.8 % (11.5-14.5); WHITE BLOOD COUNT 6.6 x10^3/uL (4.0-11.0)
[2020-02-26 16:50] LABS: BASE EXCESS COOX -1 mmol/L (-3-3); HCO3 COOX 25 mmol/L (21-28); METHEMOGLOBIN 0.5 % (0.0-1.9); OXYHEMOGLOBIN 96.8 %; PCO2 COOX 46 mmHg (35-46); PO2 COOX 111 mmHg (65-108); SAT O2 COOX 98 % (92-99)
[2020-02-26 17:00] LABS: CALCIUM 9.3 mg/dL (8.5-10.1); GFR 54.3
[2020-02-26 17:06] LABS: ALBUMIN 3.6 g/dL (3.4-5.0); ALBUMIN/GLOBULIN RATIO 1.2 (1.0-1.7); TOTAL BILIRUBIN 0.3 mg/dL (0.2-1.0); TOTAL PROTEIN 6.7 g/dL (6.4-8.2)
[2020-02-26 17:40] LABS: BILIRUBIN,URINE NEGATIVE (NEG); CLARITY,URINE CLEAR; COLOR,URINE YELLOW; NITRITE,URINE NEGATIVE (NEG); PROTEIN,URINE NEGATIVE (NEG-TRACE); UROBILINOGEN,URINE 0.2 mg/dL (0.2 mg/dL)
[2020-02-26 17:44] LABS: BACTERIA,URINE 0 /HPF (0-FEW); RBC,URINE 0 /HPF (0-2); SQUAMOUS EPITHELIAL CELL,UR FEW /LPF; WBC,URINE OCC /HPF (0-4)
--- NOTE | 2020-02-26 17:55 | RAD ---
Exam: Chest one view INDICATION: Short of air TECHNIQUE: Frontal view of the chest Comparisons: 04/09/2019 FINDINGS: The cardiomediastinal silhouette and pulmonary vessels are within normal limits. The lung and pleural spaces are clear. IMPRESSION: No acute cardiopulmonary process. Electronically signed by: Terrance Guan MD (02/26/2020 5:52 PM) [id number]
[2020-02-26] MEDS ORDERED: fentaNYL PF VIAL 100 MCG/2 ML VIAL IV PRN (18:30)
[2020-02-26] MEDS ORDERED: ONDANSETRON PF 4 MG/2 ML VIAL. IV PRN (18:30)
[2020-02-26] MEDS ORDERED: NITROGLYCERIN SUBLINGUAL 0.4 MG BOTTLE OF 25. SL PRN (18:30)
[2020-02-26] MEDS ORDERED: IPRATRPIUM/ALBUTEROL 0.5/2.5MG 3 ML NEBU. NEB SCH (20:00)
[2020-02-26 23:00] VITALS: BP 147/78
[2020-02-26] MEDS ORDERED: ALPR0.5T6 PO (23:40)
[2020-02-26] MEDS ORDERED: ALPR0.254 PO (23:40)
[2020-02-26] MEDS ORDERED: ALPRAZolam 0.25 MG TABLET PO PRN (23:45)
[2020-02-27 03:00] VITALS: BP 155/82
[2020-02-27] MEDS ORDERED: TIOT18CA IH (04:04)
[2020-02-27] MEDS ORDERED: LATA2.5D3 EACHEYE (04:04)
[2020-02-27] MEDS ORDERED: METO25TA2 PO (04:04)
[2020-02-27 07:15] VITALS: BP 144/77
--- NOTE | 2020-02-27 07:52 | PDOC1 ---
H & P. HPI: Ms. Harmon is a 74 yo female with past medical history of chronic hypoxic respiratory failure secondary to COPD, hypertension, anxiety, GERD, nicotine abuse in remission. She presented to the emergency room yesterday for chest pain, shortness of breath, dizziness, lightheadedness. She was evaluated with labs and chest x-ray, which were generally unremarkable apart from mildly elevated BNP. She was saturating well on 2 L of oxygen which is her baseline oxygen requirement. She had the first part of stress test yesterday with 2nd part planned for this morning. However, she felt uncomfortable with plan for discharge given her continued symptoms. She was admitted for observation. She was given Solu-Medrol and duo nebs in the emergency room. Second troponin was negative. Feeling better this AM. ROS: Constitutional: Denies fever, fatigue, chills HEENT: Denies sore throat, vision changes Cardio: Denies chest pain, dyspnea with exertion, syncope, palpitations, edema Pulmonary: Denies shortness of breath, cough, wheezing GI: Denies nausea, vomiting, diarrhea, constipation : Denies dysuria, frequency, urgency, incontinence Skin: Denies new lesions Neuro: Denies weakness, paresthesias PMH: As above FAMILY HX: Noncontributory SOCIAL HX: Long-term smoker, quit recently. No significant alcohol or drug use. SURGICAL HX: Cataract removal of the right eye, tubal ligation, cholecystectomy, left ureteral stent placement in 2016. MEDS: Reviewed and reconciled ALLERGIES: Reviewed PE: Alert, oriented, no acute distress EOMI, sclera non-icteric Neck supple RRR, no murmur CTAB, no wheezes, crackles or rhonchi Soft, NT, ND, normal bowel sounds, no rebound, guarding. Negative Seth's sign. No edema, cyanosis. Normal capillary refill. Calm, cooperative, mood/affect within normal limits ASSESSMENT & PLAN: Chronic hypoxic respiratory failure secondary to COPD, not in acute exacerbation Chest pain, negative troponins Hypertension Anxiety GERD History of nicotine abuse, in remission OK to DC to home. Will work with Cards to hopefully complete 2 day stress test today as previously planned. Justicifation of Admission Dx: Justifications for Admission: Justification of Admission Dx: Yes HERNAN THOMAS MD Feb 27, 2020 07:52
[2020-02-27] MEDS ORDERED: BUDESONIDE 0.5 MG/2 ML NEBU. NEB SCH (08:00)
[2020-02-27] MEDS ORDERED: PANTOPRAZOLE 40 MG TABLET.DR. PO SCH (08:15)
[2020-02-27] MEDS: IPRATRPIUM/ALBUTEROL 0.5/2.5MG 3 ML NEBU. NEB SCH ×3 (08:29→15:03)
[2020-02-27] MEDS ORDERED: NON FORMULARY ITEM (Tiotropium Bromide (Spiriva) 1 CAP) IH SCH (09:00)
[2020-02-27] MEDS ORDERED: LOSARTAN POTASSIUM 25 MG TABLET. PO SCH (09:00)
[2020-02-27] MEDS ORDERED: ACETAMINOPHEN 325 MG TABLET. PO PRN (09:00)
[2020-02-27] MEDS ORDERED: METOPROLOL SUCC 24HR ER 25 MG TAB.ER.24H. PO SCH (09:00)
--- NOTE | 2020-02-27 09:28 | EKG ---
[facility] [address] [place] [address] Test Date: 2020-02-27 Test Time: 09:24:22 Pat Name: ANA GERARD Department: Room: 512 1 Gender: F Supervisor Building Maintenance: ANITA : 1945 Requested By: HERNAN THOMAS Order Number: [id number] Reading MD: Measurements Intervals [place] Rate: 72 P: 64 [place]: 190 QRS: 23 QRSD: 84 T: 41 QT: 376 QTc: 413 Interpretive Statements SINUS RHYTHM NORMAL ECG RI6.02 Compared to ECG 04/09/2019 22:14:08 No significant changes
--- NOTE | 2020-02-27 09:35 | PDOC2 ---
YOLANDA MAC STUDENT DEVELOPMENT ADVISOR 02/27/20 0935: CARDIAC CONSULT DATE OF CONSULT Date of Consult DATE: 02/27/20 TIME: 09:23 REASON FOR CONSULT Reason for Consult: Chest pain REFERRING PHYSICIAN Referring Physician: Alexia SOURCE Source: Chart review, Patient HISTORY OF PRESENT ILLNESS HISTORY OF PRESENT ILLNESS This is a pleasant 74 yo female admitted for complains of chest pain. Reports that in the last week she has been having intermittent chest tightness but it became more pronounced yesterday. Reports of SOA with no wheezing. Uses home O2 for her COPD. No PND or any peripheral edema. No recent falls or any injury. Verbalized complaince with her medications. She had the resting portion of the nuclear stress test yesterday and due to stress portion today PAST MEDICAL HISTORY Past Medical History Cardiovascular: HTN Pulmonary: COPD, Pneumonia CENTRAL NERVOUS SYSTEM: Other (Essential tremors) GI: GERD Heme/Onc: No pertinent hx Hepatobiliary: No pertinent hx Psych: Anxiety Musculoskeletal: Osteoarthritis Infectious disease: No pertinent hx ENT: No pertinent hx, Other (glaucoma) Renal/: UTI Endocrine: Osteopenia Dermatology: No pertinent hx PAST SURGICAL HISTORY Past Surgical History Cholecystectomy, Cataract Removal, Tubal Ligation, Other (left ureteral stent) FAMILY HISTORY Family History: Heart Disease SOCIAL HISTORY Smoke: Quit ALCOHOL: none Drugs: None Lives: with Family CURRENT MEDICATIONS CURRENT MEDICATIONS Current Medications Medications (Trade) Dose Ordered Sig/Vincent Route PRN Reason Start Time Stop Time Status Last Admin Dose Admin Albuterol Sulfate (Ventolin Neb Soln) 2.5 mg 1X ONCE NEB 02/26/20 16:30 02/26/20 16:31 DC 02/26/20 16:43 Methylprednisolone Sodium Succinate (SOLU-Medrol 125MG VIAL) 125 mg 1X ONCE IV 02/26/20 16:30 02/26/20 16:31 DC 02/26/20 16:39 Aspirin (Vicky Aspirin) 325 mg 1X ONCE PO 02/26/20 16:30 02/26/20 16:31 DC 02/26/20 16:41 Alprazolam (Xanax) 0.25 mg TID PRN PRN PO ANXIETY / AGITATION 02/26/20 23:45 02/27/20 08:53 Budesonide (Pulmicort) 0.5 mg RTBID NEB 02/27/20 08:00 02/27/20 08:27 Albuterol/ Ipratropium (Duoneb) 3 ml RTQID NEB 02/27/20 08:00 02/27/20 08:29 Losartan Potassium (Cozaar) 100 mg DAILY PO 02/27/20 09:00 02/27/20 08:54 Metoprolol Succinate (Toprol Xl) 12.5 mg BID PO 02/27/20 09:00 02/27/20 08:54 Pantoprazole Sodium (Protonix) 40 mg DAILYAC PO 02/27/20 08:15 02/27/20 08:54 Acetaminophen (Tylenol) 650 mg PRN Q6HRS PRN PO MILD PAIN / TEMP > 100.3'F 02/27/20 09:00 02/27/20 08:59 ALLERGIES ALLERGIES: Coded Allergies: latex (Verified Allergy, Intermediate, Itching, 09/04/18) ROS Review of System 14 point ROS evaluated with pertinent positives noted per HPI PHYSICAL EXAM General: Alert, Oriented X3, Cooperative, No acute distress HEENT: Atraumatic, Mucous membr. moist/pink Lungs: Other (diminished) Heart: Regular rate (SR), Other (distant heart sounds) Abdomen: Soft, No tenderness Extremities: No cyanosis, No edema Skin: No breakdown, No significant lesion Neuro: Normal speech, Sensation intact Psych/Mental Status: Mental status NL, Mood NL MUSCULOSKELETAL: Osteoarthritic changes both hands VITALS/I&O VITALS/I&O: Vital Signs Date Time Temp Pulse Resp B/P (MAP) Pulse Ox O2 Delivery O2 Flow Rate FiO2 02/27/20 08:54 80 144/77 02/27/20 08:29 Nasal Cannula 2.0 02/27/20 07:15 97.8 18 93 97.8 I & O 02/26/20 02/26/20 02/27/20 15:00 23:00 07:00 Intake Total 250 ml 50 ml Balance 250 ml 50 ml LABS Lab: Laboratory Tests Test 02/26/20 16:35 02/26/20 16:40 02/26/20 17:35 02/27/20 03:30 White Blood Count 6.6 x10^3/uL (4.0-11.0) Red Blood Count 3.93 x10^6/uL (3.50-5.40) Hemoglobin 11.1 g/dL (12.0-15.5) L Hematocrit 33.2 % (36.0-47.0) L Mean Corpuscular Volume 85 fL (79-100) Mean Corpuscular Hemoglobin 28 pg (25-35) Mean Corpuscular Hemoglobin Concent 33 g/dL (31-37) Red Cell Distribution Width 13.8 % (11.5-14.5) Platelet Count 200 x10^3/uL (140-400) Neutrophils (%) (Auto) 74 % (31-73) H Lymphocytes (%) (Auto) 16 % (24-48) L Monocytes (%) (Auto) 7 % (0-9) Eosinophils (%) (Auto) 2 % (0-3) Basophils (%) (Auto) 1 % (0-3) Neutrophils # (Auto) 4.9 x10^3/uL (1.8-7.7) Lymphocytes # (Auto) 1.1 x10^3/uL (1.0-4.8) Monocytes # (Auto) 0.5 x10^3/uL (0.0-1.1) Eosinophils # (Auto) 0.1 x10^3/uL (0.0-0.7) Basophils # (Auto) 0.1 x10^3/uL (0.0-0.2) Sodium Level 139 mmol/L (136-145) Potassium Level 4.0 mmol/L (3.5-5.1) Chloride Level 103 mmol/L (98-107) Carbon Dioxide Level 28 mmol/L (21-32) Anion Gap 8 (6-14) Blood Urea Nitrogen 13 mg/dL (7-20) Creatinine 1.0 mg/dL (0.6-1.0) Estimated GFR (Cockcroft-Gault) 54.3 BUN/Creatinine Ratio 13 (6-20) Glucose Level 119 mg/dL (70-99) H Calcium Level 9.3 mg/dL (8.5-10.1) Total Bilirubin 0.3 mg/dL (0.2-1.0) Aspartate Amino Transferase (AST) 12 U/L (15-37) L Alanine Aminotransferase (ALT) 18 U/L (14-59) Alkaline Phosphatase 81 U/L (46-116) Troponin I Quantitative < 0.017 ng/mL (0.000-0.055) < 0.017 ng/mL (0.000-0.055) GN-Bsk-C-Type Natriuretic Peptide 223 pg/mL (0-124) H Total Protein 6.7 g/dL (6.4-8.2) Albumin 3.6 g/dL (3.4-5.0) Albumin/Globulin Ratio 1.2 (1.0-1.7) O2 Saturation 98 % (92-99) Arterial Blood pH 7.35 (7.35-7.45) Arterial Blood pCO2 at Patient Temp 46 mmHg (35-46) Arterial Blood pO2 at Patient Temp 111 mmHg (65-108) H Arterial Blood HCO3 25 mmol/L (21-28) Arterial Blood Base Excess -1 mmol/L (-3-3) Oxyhemoglobin 96.8 % Methemoglobin 0.5 % (0.0-1.9) Carbon Monoxide, Quantitative 0.3 % (0.0-1.9) FiO2 28% 2l nc Urine Collection Type Unknown Urine Color Yellow Urine Clarity Clear Urine pH 6.0 (<5.0-8.0) Urine Specific Kopperl 1.015 (1.000-1.030) Urine Protein Negative mg/dL (NEG-TRACE) Urine Glucose (UA) Negative mg/dL (NEG) Urine Ketones (Stick) Negative mg/dL (NEG) Urine Blood Negative (NEG) Urine Nitrite Negative (NEG) Urine Bilirubin Negative (NEG) Urine Urobilinogen Dipstick 0.2 mg/dL (0.2 mg/dL) Urine Leukocyte Esterase Trace (NEG) Urine RBC 0 /HPF (0-2) Urine WBC Occ /HPF (0-4) Urine Squamous Epithelial Cells Few /LPF Urine Bacteria 0 /HPF (0-FEW) Urine Mucus Mod /LPF D-Dimer (Amna) 0.44 ug/mlFEU (0.00-0.50) Laboratory Tests 02/26/20 16:35 Laboratory Tests 02/26/20 16:35 ECHOCARDIOGRAM ECHOCARDIOGRAM <Conclusion> The left ventricle is normal size. The left ventricular systolic function is normal and the ejection fraction is within normal range. The Ejection Fraction is 50-55%. There is normal LV segmental wall motion. Doppler and Color Flow revealed no significant aortic regurgitation. There is no significant aortic valvular stenosis. Doppler and Color Flow revealed no mitral valve regurgitation noted. Doppler and Color Flow revealed trace tricuspid regurgitation with an estimated PAP of 38 mmHg. DATE: 01/14/20 1444 STRESS TEST STRESS TEST Conclusion 1. No EKG evidence of stress-induced ischemia. 2. Nuclear imaging shows no reversible ischemia or infarct. 3. Normal left ventricular systolic function with an ejection fraction of greater than 70%. 4. Low risk Lexiscan nuclear stress test. DATE: 12/30/18 1357 ASSESSMENT/PLAN ASSESSMENT/PLAN 1. Chest pain: some typical features 2. COPD with chronic home O2 use: stable 3. HTN: controlled 4. CAD; multivessel calcifications per past CT 5. Obesity 6. GERD Recommendations 1. ASA, start statin per lipid level 2. Stress completion today and will review for further recommendations. 3. Continue home BP meds. AMBER VELAZQUEZ MD 02/27/20 1825: CARDIAC CONSULT ASSESSMENT/PLAN ASSESSMENT/PLAN Patient seen and examined, Agree with MOTORBOAT OPERATOR's assessment and plan. CP with mixed features. NC ruled out. MPI did not show any reversible defects but showed TID that could be from balanced ischemia, She is currently CP free. Plan outpatient cath next week. Thank you for your consultation. YOLANDA MAC APRN Feb 27, 2020 09:35 AMBER VELAZQUEZ MD Feb 27, 2020 18:25
--- NOTE | 2020-02-27 10:34 | CONS ---
DATE OF CONSULTATION: 02/27/2020 PULMONARY CONSULTATION ATTENDING PHYSICIAN: Dr. Fartun Flanagan. REASON FOR CONSULTATION: Dyspnea and chest pain. HISTORY OF PRESENT ILLNESS: The patient is 74 years old with history of chronic hypoxic respiratory failure secondary to chronic obstructive pulmonary disease. She also has hypertension, anxiety and GERD. She quit tobacco 1 year ago, but smoked for at least 50 years. She was brought into the hospital with complaint of chest tightness. She has some shortness of breath and felt lightheaded and dizzy. The patient had a first part of the stress test done yesterday and the 2nd part was scheduled for this morning. She was given IV Solu-Medrol. Her chest x-ray was reviewed and it did not show any significant infiltrates. She denies any headaches, no nausea or vomiting, no diarrhea, no dysuria, no focal weakness. No leg edema. Consultation requested for further evaluation. PAST MEDICAL HISTORY: History of tobacco use and COPD with chronic hypoxic respiratory failure. PAST SURGICAL HISTORY: Tubal ligation, cholecystectomy, and left ureteral stent. ALLERGIES: LATEX. MEDICATIONS: Reviewed as listed in the MRAD. REVIEW OF SYSTEMS: The 12-point system obtained. Pertinent positives discussed in my history of present illness, otherwise noncontributory. All systems that were negative were reviewed as well. SOCIAL HISTORY: Smoked for 50 years before quitting a year ago. PHYSICAL EXAMINATION: VITAL SIGNS: Stable. Pulse ox 93% on 2 liters. Afebrile. HEENT: Sclerae nonicteric. NECK: Supple. LUNGS: With diminished breath sounds, no wheezing. CARDIOVASCULAR: With a regular rate. ABDOMEN: Soft. EXTREMITIES: With no pitting edema. LABORATORY DATA: Reviewed. White cell count 6.6, hemoglobin 11.1, and platelets are 200. ABGs with a pH of 7.35, pCO2 of 46 and a pO2 of 111 on 28% FiO2. BUN and creatinine normal. IMPRESSION: 1. Dyspnea in a patient with chronic hypoxic respiratory failure secondary to chronic obstructive pulmonary disease. Dyspnea is associated with chest pain. I suspect this is anginal in origin. She was in the process of getting stress test done, but did not complete it. Cardiology has seen her and they may consider doing cardiac catheterization. 2. Underlying chronic obstructive pulmonary disease with mild exacerbation. 3. Chronic hypoxic respiratory failure, on home oxygen at 2 liters. RECOMMENDATIONS: 1. Discussed with Cardiology. At this point, we will await for their recommendation and possibility of cardiac catheterization. 2. Continue present oxygen. 3. Continue present bronchodilators with DuoNeb and Pulmicort. 4. We will follow along with you. Discussed with RN. RAGINI WILLOUGHBY MD DR: INDU/phyllis JOB#: [id number] / [id number]
[2020-02-27 10:36] LABS: CHOLESTEROL/HDL RATIO 2.5
[2020-02-27 11:02] VITALS: BP 139/81
[2020-02-27] MEDS ORDERED: REGADENOSON 0.4 MG/5 ML DISP.SYRIN. IV ONE (12:45)
[2020-02-27] MEDS ORDERED: ASPIRIN ENTERIC COATED 81 MG TABLET.DR. PO SCH (13:30)
[2020-02-27 15:15] VITALS: BP 105/63
--- NOTE | 2020-02-27 15:25 | NUR ---
SW following. Spoke with RN and reviewed chart. Spoke with pt who stated she lives with her dtr and has home 02 and a nebulizer. Pt stated no concerns about returning home. Pt went for a stress test today. Pt will discharge later today or tomorrow with transportation from her dtr. Pt on 2l at this time and pt does have portable 02. No further SW needs at this time.
--- NOTE | 2020-02-27 16:16 | RAD ---
MR#: [id number] Date of Study: 02/27/2020 Ordering Physician: YOLANDA MAC, Referring Physician: LIZETTE WING Tech: HIRO Gee ARRT (R) (N) APPROVED REPORT Test Type: Pharmacological Stress Nurse/Tech: Yany Mata R.N. Test Indications: chest pain Cardiac History: copd, htn, kidney, Medications: see ehr Medical History: see ehr Resting ECG: SR with pvcs Resting Heart Rate: 79 bpm Resting Blood Pressure: 124/61mmHg Pretest Chest Pain: No chest pain Nurse/Tech Notes lungs diminished, no chest pain Consent: The procedure was explained to the patient in lay terms. Informed consent was witnessed. Nain eout was entered into [facility]. History and Stress Test performed by HIRO Gee ARRT (Tiffany) (N) Pharm. Details Pharmacologic stress testing was performed using 0.4mg per 5ml of regadenoson given intravenously ove r 7-10 seconds. Stress Symptoms No chest pain or symptoms. POST EXERCISE Reason for Termination: Infusion complete Target HR: No Max HR: 90 bpm Max Blood Pressure: 127/61mmHg Chest Pain: No. Arrhythmia: No. ST Change: No. INTERPRETATION Stress EKG Conclusion: No evidence of stress induced EKG changes Imaging Protocol IMAGE PROTOCOL: Rest Tc-99m/stress Tc-99m 2 days Rest: Stress: Viability: Radiopharm.Tc99m PibfcycsuYq38f Sestamibi Aidu94oPp 33mCi Img Date 02/26/2020 02/27/2020 Inj-Img Hodd38ifp. 60min. Rest Admin Site:Diagnostic Imaging Manager:YOVANNY Mcarthur Stress Admin Site: IV - Right WristAdministrator: HIRO Gee ARRT (Tiffany)(N) STRESS DATA End Diast. Vol.108.0mlAv. Heart Rate75.0bpm End Syst. Vol.20.0mlCO Index BSA0.0L/min Myocardial Vxws681.0gEject. Luajpqkv09.0% Stress Rates Pk. Fill Rate2.43EDV/secLVtime Pk. Fill 101.03msec Pk. Empty Rate2.90ESV/secLVtime Pk. Fdtdm016.50msec 1/3 Pk. Fill1.84EDV/sec Stress Scores Regional WT0.00Summed WT0.00 Regional WM0.00Summed WM1.00 The rest and stress images show normal perfusion, normal contraction and thickening. LV Perf. Quant 17 Seg. SSS0.00 17 Seg. SRS0.00 17 Seg. SDS0.00 Stress Defect Extent (% LAD)8.10Rest Defect Extent (% LAD)0.00Rev. Defect Extent (% LAD)8.10 Stress Defect Extent (% LCX) 0.00Rest Defect Extent (% LCX)0.00Rev. Defect Extent (% LCX)0.00 Stress Defect Extent (% RCA)0.00Rest Defect Extent (% RCA)0.00Rev. Defect Extent (% RCA)0.00 Stress Defect Extent (% CASSIUS)2.80Rest Defect Extent (% CASSIUS)0.00Rev. Defect Extent (% CASSIUS)2.80 Other Information Quality:Good Risk Assessment: Low Risk Conclusion 1. No evidence of EKG changes with stress testing. 2. Normal perfusion at stress/rest. 3. Low risk study. 4. EF > 60%. Signed by : Chapin Marroquin, Electronically Approved : 02/27/2020 16:15:38
[2020-02-27] MEDS ORDERED: ATOR10TA60 PO (16:40)
[2020-02-27] MEDS ORDERED: ASPI-886 PO (16:40)
--- NOTE | 2020-02-27 18:00 | NUR ---
Discharge Note: Patient was discharged home with self care. Patient cleared by cardio and pulm. Patients IV was discontinued without any complications per LIVESTOCK FEEDER. Patient was given discharge summary/instructions, follow-ups, prescriptions and educational material. Patients questions and concerns answered. Patient was taken down to the main entrance via wheelchair with all personal belongings accompanied by SHELBIE Hameed, where patients daughter was waiting for her to take her home.
[2020-02-27] MEDS ORDERED: ATORVASTATIN CALCIUM 10 MG TABLET. PO SCH (21:00)
--- NOTE | 2020-03-01 13:37 | EKG ---
[facility] [address] [place] [address] Test Date: 2020-02-26 Test Time: 16:53:19 Pat Name: ANA GERARD Department: Room: Gender: F Landfill Attendant: : 1945 Requested By: BRANDY WILLIAM Order Number: [id number] Reading MD: Measurements Intervals Semora Rate: 77 P: 90 AK: 172 QRS: 28 QRSD: 84 T: 51 QT: 372 QTc: 423 Interpretive Statements SINUS RHYTHM INTERPOLATED ATRIAL PREMATURE COMPLEX(ES) OTHERWISE NORMAL ECG RI6.01 No previous ECG available for comparison
== END 2020-02-27 18:00 | disposition home or self-care (01) ==
LOC: ER 15:50 → 5 NORTH 18:13
PROVIDERS: ADMIT Family Medicine; ATTEND Family Medicine
DX: J96.11 Chronic respiratory failure with hypoxia (principal); J44.1 Chronic obstructive pulmonary disease with (acute) exacerbation; R07.89 Other chest pain; I10 Essential (primary) hypertension; F41.9 Anxiety disorder, unspecified; K21.9 Gastro-esophageal reflux disease without esophagitis; H40.9 Unspecified glaucoma; I25.10 Atherosclerotic heart disease of native coronary artery without angina pectoris; E66.9 Obesity, unspecified; R42 Dizziness and giddiness; R25.1 Tremor, unspecified; M85.80 Other specified disorders of bone density and structure, unspecified site; M19.90 Unspecified osteoarthritis, unspecified site; Z87.891 Personal history of nicotine dependence; Z98.41 Cataract extraction status, right eye; Z98.51 Tubal ligation status; Z90.49 Acquired absence of other specified parts of digestive tract; Z98.890 Other specified postprocedural states; Z87.440 Personal history of urinary (tract) infections; Z68.30 Body mass index [BMI] 30.0-30.9, adult; Z79.899 Other long term (current) drug therapy
CPT/HCPCS: 36415; 36600; 71045; 78451; 80053; 80061; 81001; 82805; 83880; 84443; 84484; 85025; 85379; 87086; 93005; 93017; 94640; 94760; 96374; 99285; A9500; G0378; J2785; J2930; G0379; J7613; J7626

== ENCOUNTER → 2020-02-26 | Outpatient (CLI) | payer MEDICARE ==
[~2020-02-26] MED LIST changes: +ALPR0.254 PO; +ASPI-886 PO; +ATOR10TA60 PO; +METO25TA2 PO; +PANT40TA77 PO; +REGADENOSON 0.4 MG/5 ML DISP.SYRIN. IV ONE; +TIOT18CA IH
== END | disposition home or self-care (01) ==
LOC: NM 09:02
PROVIDERS: ATTEND Internal Medicine Cardiovascular Disease
DX: R07.9 Chest pain, unspecified (principal)
CPT/HCPCS: 78451; A9500

== ENCOUNTER → 2020-03-03 | Outpatient (CLI) | payer MEDICARE ==
[2020-02-27 15:15] VITALS: BP 105/63
[~2020-03-03] MED LIST changes: +ALPR0.254 PO; +ASPI-886 PO; +ATOR10TA60 PO; +METO25TA2 PO; +TIOT18CA IH
--- NOTE | 2020-03-03 10:22 | RAD ---
3 views left shoulder without comparison for pain. FINDINGS: There is no fracture or acute osseous abnormality identified. There is mild glenohumeral osteoarthritis, with a small inferior humeral osteophyte. No radiopaque foreign bodies. No dystrophic calcifications. IMPRESSION: 1. No acute osseous abnormality. There is glenohumeral osteoarthritis. Electronically signed by: Zeyad Armando MD (03/03/2020 10:19 AM) [id number]
--- NOTE | 2020-03-03 12:37 | RAD ---
ABDOMEN LTD History: Periumbilical swelling Comparison: None. Findings: Multiple sonographic images directed toward the site of concern in the periumbilical region are submitted. Interpretation is made without the benefit of real-time exam. There is an area of more focally protuberant hypoechogenicity in the periumbilical area estimated about 2.3 cm in size, somewhat more prominent with patient standing measuring about 2.6 cm in size. Impression: 1. Findings suggest a periumbilical hernia, although otherwise cannot further accurately characterize. Electronically signed by: Chavez Castellanos MD (03/03/2020 12:34 PM) [id number]
== END | disposition home or self-care (01) ==
LOC: US 09:36
PROVIDERS: ATTEND Physician Assistant Medical
DX: M19.012 Primary osteoarthritis, left shoulder (principal); M25.712 Osteophyte, left shoulder; K42.9 Umbilical hernia without obstruction or gangrene
CPT/HCPCS: 73030; 76705

== ENCOUNTER → 2020-03-05 | Outpatient (CLI) | payer MEDICARE ==
[2020-02-27 15:15] VITALS: BP 105/63
[~2020-03-05] MED LIST changes: +PANT40TA77 PO
== END | disposition home or self-care (01) ==
LOC: LAB 13:42
PROVIDERS: ATTEND Internal Medicine Cardiovascular Disease
DX: Z01.818 Encounter for other preprocedural examination (principal); Z11.59 Encounter for screening for other viral diseases
CPT/HCPCS: U0003-CS

== ENCOUNTER 2020-03-10 09:46 | Outpatient (CLI) | payer MEDICARE ==
[2020-03-10] VITALS (8 sets, daily range): BP systolic 91–133; BP diastolic 63–94
[~2020-03-10] VITALS: Ht 167.6 cm; Wt 85.7 kg
[~2020-03-10 09:46] MED LIST changes: -PANT40TA77 PO
[2020-03-10 10:24] LABS: HEMATOCRIT 35.5 % (36.0-47.0); HEMOGLOBIN 11.7 g/dL (12.0-15.5); RED BLOOD COUNT 4.22 x10^6/uL (3.50-5.40); RED CELL DISTRIBUTION WIDTH 13.7 % (11.5-14.5); WHITE BLOOD COUNT 6.8 x10^3/uL (4.0-11.0)
[2020-03-10] MEDS ORDERED: PANT40TA77 PO (10:35)
[2020-03-10 10:37] LABS: CALCIUM 8.9 mg/dL (8.5-10.1); CREATININE 1.1 mg/dL (0.6-1.0); GFR 48.7; POTASSIUM 4.2 mmol/L (3.5-5.1)
[2020-03-10 10:38] LABS: PROTHROMBIN TIME PATIENT 12.1 SEC (11.7-14.0)
[2020-03-10] MEDS ORDERED: LIDOCAINE 1% PF 2 ML VIAL. ONE (11:03)
[2020-03-10] MEDS ORDERED: IODIXANOL 320 MG/ML 100 ML VIAL. ONE (11:03)
[2020-03-10] MEDS ORDERED: NITROGLYCERIN 200 MCG/2 ML SYRINGE FOR CATH/VASC LAB. ONE (11:17)
[2020-03-10] MEDS ORDERED: fentaNYL PF VIAL 100 MCG/2 ML VIAL ONE (11:17)
[2020-03-10] MEDS ORDERED: VERAPAMIL 5 MG/2 ML VIAL. ONE (11:17)
[2020-03-10] MEDS ORDERED: HEPARIN for IV BOLUS 10,000 UNIT/10 ML VIAL. ONE (11:17)
[2020-03-10] MEDS ORDERED: MIDAZOLAM HCL/PF 5 MG/5 ML VIAL. ONE (11:17)
[2020-03-10] MEDS ORDERED: fentaNYL PF VIAL 100 MCG/2 ML VIAL IV ONE (11:30)
[2020-03-10] MEDS ORDERED: VERAPAMIL 5 MG/2 ML VIAL. IART ONE (11:30)
[2020-03-10] MEDS ORDERED: NITROGLYCERIN 200 MCG/2 ML SYRINGE FOR CATH/VASC LAB. IART ONE (11:30)
[2020-03-10] MEDS ORDERED: MIDAZOLAM HCL/PF 5 MG/5 ML VIAL. IV ONE (11:30)
[2020-03-10] MEDS ORDERED: HEPARIN for IV BOLUS 10,000 UNIT/10 ML VIAL. IART ONE (11:30)
[2020-03-10] MEDS ORDERED: LIDOCAINE 1% PF 2 ML VIAL. INJ ONE (11:30)
[2020-03-10] MEDS ORDERED: IODIXANOL 320 MG/ML 100 ML VIAL. IART ONE (11:30)
--- NOTE | 2020-03-10 12:32 | CARD ---
MR#: [id number] Date of Study: 03/10/2020 Ordering Physician: AMBER TSANG, Referring Physician: AMBER TSANG, Tech: RT Radha (R) SHANE APPROVED REPORT Technologist: RT Radha (R) SHANE Nurse: Elizabeth Plummer R.N. Procedure(s) performed: Left heart catheterization, selective coronary angiography and left ventricul ography via right transradial approach FLUORO TIME: 2.5 MIN DOSE: 26 Gycm2 Contrast: 104 ml Moderate Sedation:26 min INDICATION The indication(s) include : Chest pain and positive stress test concerning for unstable angina. [facility] Clinical Frailty Scale [facility] Clinical Frailty Scale: Mildly Frail Heart Failure Heart Failure: No PROCEDURE NARRATIVE After explaining the risks, benefits and alternative options, informed consent was obtained from babatunde ent. Patient was brought to the cardiac Plateman and right wrist was prepped and draped in the usual fashion after confirming a positive modified Earl's test. Arterial access was obtained in the righ t radial artery and a 6 Indian sheath was inserted. 6 Indian Jorge catheter was used to perform katherine ective angiography of the left and right coronary arteries. 6 Indian pigtail catheter was used to pe rform left ventriculography. Patient tolerated the procedure well. Hemostasis was achieved using TR band. There were no immediate complications. The following findings were noted. FINDINGS 1. Hemodynamics: Left ventricular end-diastolic pressure of 14 mmHg. No pullback gradient across th e aortic valve. 2. Left ventriculography: Normal left ventricle systolic function with ejection fraction estimated at 65%. No significant mitral regurgitation seen. 3. Coronary angiography: a. The left main coronary artery arose from the left sinus of Valsalva, gave rise to the left anteri or descending and left circumflex arteries and did not show any significant stenosis. b. The left anterior descending artery itself did not show any significant stenosis. The diagonal b ranch showed 30% ostial stenosis. c. The left circumflex artery did not show any significant stenosis. d. The right coronary artery was a large and dominant vessel arising from the right sinus of Valsalv a that did not show any significant stenosis. Conclusion 1. No significant coronary disease 2. Normal left ventricular systolic function with ejection fraction estimated at 65%. Signed by : Amber Tsang, Electronically Approved : 03/10/2020 12:32:30
--- NOTE | 2020-03-10 14:30 | NUR ---
Discharge Note: ANA GERARD Discharge instructions and discharge home medications reviewed with Patient and a copy given. All questions have been answered and understanding verbalized. Dressing to R radial site clean and dry, armboard in place The following instructions and handouts were given: transradial angiogram, sedation Discontinued lines and drains: Peripheral IV intact. Patient discharged to Home or Self Care with Family Member via Wheelchair OWEN RN Addendum: 03/10/20 at 1442 by JUJU BERNAL RN Amended: Links added.
== END 2020-03-10 14:30 | disposition home or self-care (01) ==
LOC: CCL 09:46
PROVIDERS: ATTEND Internal Medicine Cardiovascular Disease
DX: R07.9 Chest pain, unspecified (principal); I20.0 Unstable angina; I10 Essential (primary) hypertension; J44.9 Chronic obstructive pulmonary disease, unspecified; Z87.891 Personal history of nicotine dependence; Z88.8 Allergy status to other drugs, medicaments and biological substances; Z98.890 Other specified postprocedural states; Z79.899 Other long term (current) drug therapy
CPT/HCPCS: 36415; 80048; 85027; 85610; 93458; 99152; 99153; C1769; C1892; J1644; J2250; J3010; J3490; Q9967

== ENCOUNTER → 2020-03-22 | Outpatient (CLI) | payer MEDICARE ==
[2020-03-10 14:00] VITALS: BP 107/64
[~2020-03-22] MED LIST changes: +PANT40TA77 PO
--- NOTE | 2020-03-22 14:17 | KCIC ---
HIP LEFT 1 VIEW WITH PELVIS DATE: 03/22/2020 12:00 AM INDICATION: CHRONIC LEFT HIP PAIN COMPARISON: None. FINDINGS: Bones: There is no evidence of acute fracture or dislocation. Joints: Mild degenerative changes of the hips, SI joints, and symphysis pubis Miscellaneous: None. IMPRESSION: No acute osseous abnormality. Mild degenerative changes. Electronically signed by: Chavez Taylor MD (03/22/2020 2:14 PM) [id number]
== END ==
LOC: KCIC 11:15
PROVIDERS: ATTEND Family Medicine
DX: M16.12 Unilateral primary osteoarthritis, left hip (principal)
CPT/HCPCS: 73501

== ENCOUNTER 2020-07-17 23:16 | Emergency (ER) | payer MEDICARE ==
[~2020-07-17] VITALS: Ht 167.6 cm; Wt 73.6 kg
[2020-07-17 23:49] LABS: BASO # 0.1 x10^3/uL (0.0-0.2); BASO % 1 % (0-3); EOS % 0 % (0-3); HEMATOCRIT 32.6 % (36.0-47.0); HEMOGLOBIN 10.9 g/dL (12.0-15.5); LYMPH # 0.6 x10^3/uL (1.0-4.8); LYMPH % 6 % (24-48); MEAN CORPUSCULAR HEMOGLOBIN 28 pg (25-35); MEAN CORPUSCULAR HGB CONC 33 g/dL (31-37); MEAN CORPUSCULAR VOLUME 82 fL (79-100); MONO % 9 % (0-9); NEUT # 9.2 x10^3/uL (1.8-7.7); NEUT % 85 % (31-73); PLATELET COUNT 286 x10^3/uL (140-400); RED BLOOD COUNT 3.96 x10^6/uL (3.50-5.40); WHITE BLOOD COUNT 10.8 x10^3/uL (4.0-11.0)
[2020-07-17 23:54] LABS: CALCIUM 9.6 mg/dL (8.5-10.1); CREATININE 1.2 mg/dL (0.6-1.0); POTASSIUM 4.5 mmol/L (3.5-5.1)
[2020-07-18] MEDS ORDERED: DEXAMETHASONE SOD PHOS 20 MG/5 ML VIAL. IV ONE
[2020-07-18] MEDS ORDERED: IV NORMAL SALINE 1000ML BAG 1,000 ML IV SCH
[2020-07-18 00:08] LABS: ALBUMIN 3.5 g/dL (3.4-5.0); ALBUMIN/GLOBULIN RATIO 1.1 (1.0-1.7); TOTAL BILIRUBIN 0.3 mg/dL (0.2-1.0); TOTAL PROTEIN 6.7 g/dL (6.4-8.2)
--- NOTE | 2020-07-18 00:12 | RAD ---
Single view chest dated 07/17/2020 Comparison made to 02/26/2020. Clinical indication: Shortness breath. FINDINGS: Prior single upright portable exam performed. Heart and mediastinal contours are stable. Th ere are some prominent perihilar linear markings, similar to slightly increased. There is also some p atchy increased density at the lateral right apex, new. No pleural effusion. No pneumothorax. IMPRESSION: 1. Patchy infiltrate at the right upper lobe, atelectasis versus early pneumonia. 2. There is also some prominent peripheral linear markings suggesting mild interstitial fibrosis or e ralph. Correlate clinically. Electronically signed by: Dusty Wagner MD (07/18/2020 12:09 AM) [facility]
--- NOTE | 2020-07-18 00:20 | PHYS DOC ---
Past Medical History Past Medical History: Anxiety, COPD, Hypertension, Other Additional Past Medical Histor: chronic cough, glaucoma, tremors Past Surgical History: Cholecystectomy, Other Additional Past Surgical Histo: left kidney surgery (minor) Smoking Status: Former Smoker Alcohol Use: None Drug Use: None General Adult EDM: Chief Complaint: SHORTNESS OF BREATH HPI: HPI: 74 yo F PMH COPD (on 2L NC), HTN, HLD, anxiety and GERD presents to the ed with complaints of " I just cannot breathe," home oxygen is 94-96% on 2L NC, symptoms started last night. Is on dexamethasone 4 mg daily that was started 2 days ago by her primary care physician Dr. Lopez. No relief with her 2 inhalers today. Was seen at [facility] and discharged from the ed on the at 2 AM for Covid (no d-dimer ordered, no hospital admissions this eyar). Patient also c omplains of worsening anxiety and fear over covid complications. Flu vaccine UTD. No h/o DVT/PE. Pt's daughter and grandson both have Covid. Review of Systems: Review of Systems: Constitutional: Denies fever or chills, denies lack of taste or smell Eyes: Denies change in visual acuity. [] HENT: Denies nasal congestion or sore throat. [] Respiratory: Denies hemoptysis or productive cough Cardiovascular: Denies chest pain or edema. [] GI: Denies abdominal pain, nausea, vomiting, bloody stools or diarrhea. [] : Denies dysuria. [] Musculoskeletal: Denies back pain or joint pain. [] Integument: Denies rash or diaphoresis Neurologic: Denies headache, focal weakness or sensory changes. [] Endocrine: Denies polyuria or polydipsia. [] Lymphatic: Denies swollen glands. [] Psychiatric: Denies depression or anxiety. [] Heart Score: Risk Factors: Risk Factors: DM, Current or recent (<one month) smoker, HTN, HLP, family history of CAD, obesity. Risk Scores: Score 0 - 3: 2.5% MACE over next 6 weeks - Discharge Home Score 4 - 6: 20.3% MACE over next 6 weeks - Admit for Clinical Observation Score 7 - 10: 72.7% MACE over next 6 weeks - Early Invasive Strategies Current Medications: Current Medications Medications (Trade) Dose Ordered Sig/Vincent Start Time Stop Time Status Last Admin Dose Admin Dexamethasone Sodium Phosphate (Decadron) 10 mg 1X ONCE 07/18/20 00:00 07/18/20 00:01 DC Lorazepam (Ativan Inj) 1 mg 1X ONCE 07/18/20 00:00 07/18/20 00:01 DC Sodium Chloride 1,000 ml @ 1,000 mls/hr Q1H 07/18/20 00:00 07/18/20 00:59 Allergies: Allergies: Allergies Coded Allergies Type Severity Reaction Last Updated Verified latex Adverse Reaction Intermediate years ago gloves caused rash on hands 03/10/20 Yes Physical Exam: PE: Constitutional: Well developed, well nourished, no acute distress, non-toxic appearance, afebrile HENT: Normocephalic, atraumatic, Eyes: EOMI, conjunctiva normal, no discharge. Neck: Normal range of motion, supple, Cardiovascular: S1/2 present, regular rhythm, tachycardic Lungs & Thorax: Speaking in full sentences, bilateral equal chest rise, no tachypnea or increased work of breathing, >94% on 2L NC, no wheezing crackles or rales in all 4 lung toscano Abdomen: soft, no tenderness, Skin: Warm, dry, no erythema, no rash. [] Back: No tenderness, no CVA tenderness. [] Extremities: No tenderness, no cyanosis, no LE swelling Neurologic: Alert and oriented X 3, normal motor function, normal sensory function, no focal deficits noted. [] Psychologic: Affect normal, judgement normal, mood-very anxiety and constantly shaking/tremulous (stops when asking pt to do something) Current Patient Data: Labs: Laboratory Tests Test 07/17/20 23:26 White Blood Count 10.8 x10^3/uL (4.0-11.0) Red Blood Count 3.96 x10^6/uL (3.50-5.40) Hemoglobin 10.9 g/dL (12.0-15.5) L Hematocrit 32.6 % (36.0-47.0) L Mean Corpuscular Volume 82 fL (79-100) Mean Corpuscular Hemoglobin 28 pg (25-35) Mean Corpuscular Hemoglobin Concent 33 g/dL (31-37) Red Cell Distribution Width 14.0 % (11.5-14.5) Platelet Count 286 x10^3/uL (140-400) Neutrophils (%) (Auto) 85 % (31-73) H Lymphocytes (%) (Auto) 6 % (24-48) L Monocytes (%) (Auto) 9 % (0-9) Eosinophils (%) (Auto) 0 % (0-3) Basophils (%) (Auto) 1 % (0-3) Neutrophils # (Auto) 9.2 x10^3/uL (1.8-7.7) H Lymphocytes # (Auto) 0.6 x10^3/uL (1.0-4.8) L Monocytes # (Auto) 1.0 x10^3/uL (0.0-1.1) Eosinophils # (Auto) 0.0 x10^3/uL (0.0-0.7) Basophils # (Auto) 0.1 x10^3/uL (0.0-0.2) D-Dimer (Amna) 0.93 ug/mlFEU (0.00-0.50) H Sodium Level 138 mmol/L (136-145) Potassium Level 4.5 mmol/L (3.5-5.1) Chloride Level 103 mmol/L (98-107) Carbon Dioxide Level 25 mmol/L (21-32) Anion Gap 10 (6-14) Blood Urea Nitrogen 24 mg/dL (7-20) H Creatinine 1.2 mg/dL (0.6-1.0) H Estimated GFR (Cockcroft-Gault) 44.0 BUN/Creatinine Ratio 20 (6-20) Glucose Level 136 mg/dL (70-99) H Lactic Acid Level 2.7 mmol/L (0.4-2.0) H Calcium Level 9.6 mg/dL (8.5-10.1) Total Bilirubin Pending Aspartate Amino Transferase (AST) Pending Alanine Aminotransferase (ALT) Pending Alkaline Phosphatase Pending Troponin I Quantitative 0.020 ng/mL (0.000-0.055) Total Protein Pending Albumin Pending Albumin/Globulin Ratio Pending Laboratory Tests 07/17/20 23:26 Laboratory Tests 07/17/20 23:26 Vital Signs: Vital Signs Date Time Temp Pulse Resp B/P (MAP) Pulse Ox O2 Delivery O2 Flow Rate FiO2 12/19/20 23:30 98.6 106 22 139/62 (87) 98 Nasal Cannula 2.0 98.6 EKG: EKG: sinus tachycardia, nad, no twis, qtc 470, no bernardino/std Radiology/Procedures: Radiology/Procedures: IMAGING REPORT Signed PATIENT: ANA GERARD ACCOUNT: [id number] : 1945 LOCATION: ER AGE: 74 SEX: F EXAM STATUS: REG ER ORD. PHYSICIAN: PETRONA CEEDÑO DO REASON: soa PROCEDURE: PORTABLE CHEST 1V Single view chest dated 07/17/2020 Comparison made to 02/26/2020. Clinical indication: Shortness breath. FINDINGS: Prior single upright portable exam performed. Heart and mediastinal contours are stable. There are some prominent perihilar linear markings, similar to slightly increased. There is also some patchy increased density at the lateral right apex, new. No pleural effusion. No pneumothorax. IMPRESSION: 1. Patchy infiltrate at the right upper lobe, atelectasis versus early pne umonia. 2. There is also some prominent peripheral linear markings suggesting mild interstitial fibrosis or edema. Correlate clinically. Electronically signed by: Dusty Wagner MD (07/18/2020 12:09 AM) [facility] [place] DICTATED and SIGNED BY: DUSTY WAGNER MD DATE: 07/18/20 [id number] IMAGING REPORT Signed PATIENT: ANA GERARD ACCOUNT: [id number] : 1945 LOCATION: ER AGE: 74 SEX: F EXAM STATUS: REG ER ORD. PHYSICIAN: PETRONA CEDEÑO DO REASON: soa, cough, r/o pe, covid +, omni 350, 80 ml iv PROCEDURE: CT ANGIOGRAPHY CHEST CTA chest with contrast dated 07/18/2020. No comparison available. CLINICAL INDICATION: Shortness of breath. Possible pulmonary embolus. Covid 19. TECHNIQUE: Contiguous axial imaging the chest performed following the intravenous administration of 80 cc Omnipaque 350. Study was performed as dedicated PE protocol with thin cut coronal MIPS 3-D reconstruction. One or more of the following individualized dose reduction techniques were utilized for this examination: 1. Automated exposure control 2. Adjustment of the mA and/or kV according to patient size 3. Use of iterative reconstruction technique. FINDINGS: Contrast bolus is adequate. No evidence of central, lobar or segmental pulmonary embolus. Subsegmental branches are not well evaluated based on technique. Heart size is within normal limits. No pericardial effusion. Coronary artery calcifications. No mediastinal, hilar or axillary lymphadenopathy. Thyroid gland unremarkable. Central airways are patent. There is patchy groundglass opacity throughout the peripheral aspects of the bilateral upper lobes with milder involvement of the bilateral lower lobes. Mild to moderate emphysema with biapical scarring. No pleural effusion. There is intermixed groundglass opacity bilaterally. Limited images of the upper abdomen are unremarkable. No significant bony abnormality. IMPRESSION: 1. No evidence of central, lobar or segmental pulmonary embolus. 2. Patchy bilateral airspace disease with intermixed groundglass opacity, suspicious for pneumonia. Covid 19 pneumonitis not excluded. 3. Moderate emphysema. 4. Coronary artery calcifications Electronically signed by: Dusty Wagner MD (07/18/2020 1:59 AM) [facility] DICTATED and SIGNED BY: DUSTY WAGNER MD DATE: 07/18/20 [id number] Course & Med Decision Making: Course & Med Decision Making Pertinent Labs and Imaging studies reviewed. (See chart for details) Concern for pneumonia in the setting of COVID-19 in a COPD patient requiring no additional supplemental oxygen. Patient is afebrile and nontoxic-appearing. Speaking in full sentences, no tachypnea or increased wob. Clear lungs on my exam. CTA negative for life-threatening pulmonary embolus. Will cover with Augmentin and Zithromax as an outpatient. Patient is already on dexamethasone by her PMD and does not need her inhalers refilled. I do feel there is more of an anxiety component to pts' ed visit/presentation. Will discharge home with strict ED return precautions were given for tachypnea, sternal and subcostal retractions, inability to speak in full sentences, fever, chest pain, syncope or neurologic deficits. Encouraged urgent outpatient follow-up with PMD and pulmonology. Life-threatening processes were considered but are low suspicion at this time, given history, physical exam and ED workup. Pt was educated on all prescription medications and adverse effects. All patient's questions were answered and pt was stable at time of discharge. Life/limb-threatening differential includes but is not limited to, ACS, dysrhythmia, pneumothorax or hemothorax, pulmonary embolus, pneumonia, bro nchoconstriction, pulmonary edema, angioedema, epiglottitis, tracheitis, Carlos's angina, RPA/EYEGLASS LENS GENERATOR, anaphylaxis, angioedema, cardiac tamponade or murmurs, pericarditis, myocarditis, poisoning or toxicity, sepsis or autoimmune/neurologic disease. I spoken with the patient and her caregivers. I explained the patient's condition, diagnoses and treatment plan based on the information available to me at this time. I have answered the patient and her caregiver's questions and addressed any concerns. The patient and her caregivers have a good understanding of patient's diagnosis, condition and treatment plan as can be expected at this point. Vital signs have been stable. Patient's condition is stable and appropriate for discharge from the emergency department. Patient will pursue further outpatient evaluation with primary care physician or other designated or consulting physician as outlined in the discharge instructions. The patient and/or caregivers are agreeable to this plan of care and follow-up instructions have been explained in detail. The patient and/or caregivers have received these instructions in written form and have expressed an understanding of the discharge instructions. The patient and/or caregivers are aware that any significant change of condition or worsening of symptoms should prompt immediate return to this or the closest emergency department or call to 911. Denny Disclaimer: Denny Disclaimer: This electronic medical record was generated, in whole or in part, using a voice recognition dictation system. Departure Departure Impression: Primary Impression: COVID-19 Additional Impression: CAP (community acquired pneumonia) Disposition: 01 DC HOME SELF CARE/HOMELESS Condition: STABLE Referrals: MATEO LOPEZ MD (PCP) Patient Instructions: Pneumonia, Adult Additional Instructions: FOLLOW UP WITH: [facility] Address: [address] [place] [address] You have been tested for or diagnosed with COVID-19. It is an infection caused by a new type of coronavirus. COVID-19 will cause cold-like or mild flu symptoms in most. It can cause more severe symptoms like problems breathing in some. There is no treatment for COVID-19. The body will clear the infection over time. Self-care will help to ease discomfort. Steps to Take: Self-Care Rest as needed. Healthy habits may help you feel better. Steps include: Choose healthy foods including fruits and vegetables. Drink water throughout the day. Get plenty of sleep each night. If you smoke, try to quit. It may ease breathing. Avoid alcohol. Keep Others Healthy The virus can spread to others. Droplets are released every time you sneeze or cough. The droplets can get into the mouth, nose, or eyes of people near you and lead to infection. To lower the chances of spreading COVID-19 to others: Stay at home until your doctor has said it is safe to leave. If you tested positive this will mean staying isolated until both of the following are true: At least 7 days have passed since the start of illness. You are free of fever for at least 72 hours without the use of medicine. During this time: - Avoid public areas, events, or transportation. Do not return to work or school until your doctor has said it is safe to do so. - Call ahead if you need to go to a medical center. Let them know you may have COVID-19. It will help them guide you where to go. They may also ask you to wear a facemask when you come to the office. - If you call for emergency medical services, let them know you may have COVID- 19. While at home: - Try to avoid close contact with others. Stay about 6 feet away. - If possible, spend most of your time in a separate room from others. - Use a face mask if you will be in close contact with others such as sharing a room or vehicle. - Have someone wipe down common surfaces in the home. Use household vegetable tier every day on areas like doorknobs, counters, or sinks. - Cough or sneeze into a tissue. Throw the tissue away right after use. If a ti ssue is not available, cough or sneeze into your elbow. - Wash your hands often. Wash them after sneezing or coughing. Use soap and water and wash for at least 20 seconds. Alcohol based hand strip cleaner can be used if soap and water is not available. - Do not prepare food for others. Avoid sharing personal items like forks, spoons, or toothbrushes. - Avoid close contact with pets while you are sick. There is no evidence of the virus passing to pets. This is a safety step until more is known about this virus. Isolation can be frustrating. Social interaction can help. Keep in touch with friends and family through phone and tech options. You can still interact with others in your home, just keep a safe distance of about 6 feet. Follow-up: Your doctors office will check in with you to see if there are any changes in your health. You may be asked to keep track of symptoms to share with them. They will also let you know when you are clear to be in public again. Problems to Look Out For: Contact your doctor if your recovery is not going as you expect. Get emergency care if you have problems such as: - Trouble breathing - Nonstop chest pain or pressure - Changes in awareness, confusion, or problems waking - Lips or face have bluish color - Worsening of symptoms If you think you have an emergency, call for emergency medical services right away. As taken from [facility] Azithromycin (ZITHROMAX) 250 Mg Tablet 250 MG PO as directed for ANTI-BIOTIC, #6 TAB 0 Refills Take 2 PO x 1 days Then take 1 PO q 24 hour for the next 4 days Prov: PETRONA CEDEÑO DO 07/18/20 Amoxicillin/Potassium Clav (AUGMENTIN 875-125 TABLET) 1 Each Tablet 1 TAB PO Q12HR for 5 Days, #10 TAB Prov: PETRONA CEDEÑO DO 07/18/20 PETRONA CEDEÑO DO Jul 18, 2020 00:20
[2020-07-18] MEDS ORDERED: cefTRIAXone IV Push 1 GM VIAL. IVP ONE (01:00)
[2020-07-18] MEDS ORDERED: AZITHRMYCN 500MG IVPB FOR OMNI 250 ML IV ONE (01:00)
[2020-07-18] MEDS ORDERED: CONTRAST GIVEN. MC PRN (01:15)
[2020-07-18 01:28] LABS: INFLUENZA A PATIENT NEGATIVE (NEGATIVE); INFLUENZA B PATIENT NEGATIVE (NEGATIVE)
[2020-07-18] MEDS ORDERED: IOHEXOL 350 MG/ML 100 ML VIAL. IV ONE (01:30)
--- NOTE | 2020-07-18 02:01 | RAD ---
CTA chest with contrast dated 07/18/2020. No comparison available. CLINICAL INDICATION: Shortness of breath. Possible pulmonary embolus. Covid 19. TECHNIQUE: Contiguous axial imaging the chest performed following the intravenous administration of 80 cc Omnipa que 350. Study was performed as dedicated PE protocol with thin cut coronal MIPS 3-D reconstruction. One or more of the following individualized dose reduction techniques were utilized for this examinat ion: 1. Automated exposure control 2. Adjustment of the mA and/or kV according to patient size 3. Use of iterative reconstruction technique. FINDINGS: Contrast bolus is adequate. No evidence of central, lobar or segmental pulmonary embolus. Subsegmenta l branches are not well evaluated based on technique. Heart size is within normal limits. No pericardial effusion. Coronary artery calcifications. No media stinal, hilar or axillary lymphadenopathy. Thyroid gland unremarkable. Central airways are patent. There is patchy groundglass opacity throughout the peripheral aspects of the bilateral upper lobes with milder involvement of the bilateral lower lobes. Mild to moderate emph ysema with biapical scarring. No pleural effusion. There is intermixed groundglass opacity bilaterall y. Limited images of the upper abdomen are unremarkable. No significant bony abnormality. IMPRESSION: 1. No evidence of central, lobar or segmental pulmonary embolus. 2. Patchy bilateral airspace disease with intermixed groundglass opacity, suspicious for pneumonia. C ovid 19 pneumonitis not excluded. 3. Moderate emphysema. 4. Coronary artery calcifications Electronically signed by: Dusty Wagner MD (07/18/2020 1:59 AM) [facility]
[2020-07-18] MEDS ORDERED: AZIT250T PO (02:11)
[2020-07-18] MEDS ORDERED: AMOX1TAB61 PO (02:11)
[2020-07-18 02:28] VITALS: BP 133/68
--- NOTE | 2020-07-18 09:42 | EKG ---
[facility] [address] [place] [address] Test Date: 2020-07-17 Test Time: 23:28:25 Pat Name: ANA GERARD Department: Room: Gender: F Deputy General Counsel: : 1945 Requested By: PETRONA CEDEÑO Order Number: [id number] Reading MD: Measurements Intervals Cody Rate: 126 P: 20 IL: 146 QRS: 12 QRSD: 84 T: 52 QT: 324 QTc: 470 Interpretive Statements SINUS TACHYCARDIA INTERPOLATED VENTRICULAR PREMATURE COMPLEX(ES) INTERPOLATED ATRIAL PREMATURE COMPLEX(ES) ABNORMAL ECG RI6.01 Compared to ECG 07/17/2020 23:26:25 No significant changes
--- NOTE | 2020-07-19 04:17 | EKG ---
[facility] [address] [place] [address] Test Date: 2020-07-17 Test Time: 23:26:25 Pat Name: ANA GERARD Department: Room: Gender: F Hog Dropper: : 1945 Requested By: PETRONA CEDEÑO Order Number: [id number] Reading MD: Measurements Intervals [place] Rate: 135 P: -50 IA: 122 QRS: 10 QRSD: 84 T: 54 QT: 310 QTc: 470 Interpretive Statements SINUS TACHYCARDIA COMPLEX(ES) WITH ABERRANT INTRAVENTRICULAR CONDUCTION ATRIAL PREMATURE COMPLEX(ES) ATRIAL ESCAPE COMPLEX(ES) ABNORMAL ECG RI6.01 No previous ECG available for comparison
== END 2020-07-18 02:35 | disposition home or self-care (01) ==
LOC: ER 23:16
DX: U07.1 COVID-19 (principal); J18.9 Pneumonia, unspecified organism; J44.9 Chronic obstructive pulmonary disease, unspecified; I10 Essential (primary) hypertension; Z87.891 Personal history of nicotine dependence; Z91.040 Latex allergy status
CPT/HCPCS: 36415; 71045; 71275; 80053; 83605; 84484; 85025; 85379; 87040; 87804; 93005; 96361; 96365; 96375; 99285; J0456; J0696; J1100; J2060; J7030; Q9967

== ENCOUNTER → 2020-07-26 | Outpatient (CLI) | payer MEDICARE ==
[2020-07-18 02:28] VITALS: BP 133/68
[~2020-07-26] MED LIST changes: +AMOX1TAB61 PO; +AZIT250T PO
--- NOTE | 2020-07-26 17:37 | RAD ---
XR CHEST 2V History: Reason: PNEUMONIA / Spl. Instructions: / History: Comparison: July 17, 2020 Findings: Increased multifocal ill-defined opacities bilaterally. No pleural effusion. No pneumothorax. Normal heart size. Pulmonary emphysema. Impression: 1. Increased ill-defined opacities bilaterally, concerning for pneumonia including viral pneumonia. Recommend follow-up to ensure resolution. Electronically signed by: Colton Alvarado DO (07/26/2020 5:35 PM) [id number]
== END ==
LOC: RAD 13:07
PROVIDERS: ATTEND Family Medicine
DX: J18.9 Pneumonia, unspecified organism (principal); J43.9 Emphysema, unspecified
CPT/HCPCS: 71046

== ENCOUNTER → 2020-10-26 | Outpatient (CLI) | payer MEDICARE ==
--- NOTE | 2020-10-26 15:25 | KCIC ---
EXAM: Left knee, 3 views. HISTORY: Pain. COMPARISON: None. FINDINGS: 3 views of the left knee are obtained. There is medial compartment joint space narrowing an d spurring. There is trace joint fluid. IMPRESSION: Medial compartment osteoarthritis of the left knee. No acute osseous finding. Electronically signed by: Leticia Sharpe MD (10/26/2020 3:23 PM) [id number]
== END ==
LOC: KCIC 10:58
PROVIDERS: ATTEND Family Medicine
DX: M17.0 Bilateral primary osteoarthritis of knee (principal)
CPT/HCPCS: 73562-50

== ENCOUNTER → 2021-01-21 | Outpatient (CLI) | payer MEDICARE ==
--- NOTE | 2021-01-21 09:22 | RAD ---
EXAM: CT CHEST WITHOUT CONTRAST HISTORY: Covid pneumonia COMPARISON: Chest radiograph 07/26/2020 CT chest 07/18/[address] chest 08/21/2018 TECHNIQUE: Helical CT of the chest performed without contrast. Coronal and sagittal reformats were o btained. One or more of the following individualized dose reduction techniques were utilized for this examinat ion: 1. Automated exposure control 2. Adjustment of the mA and/or kV according to patient size 3. Use of iterative reconstruction technique. FINDINGS: Thyroid gland and thoracic inlet: Unremarkable. Heart and great vessels: Heart is normal in size. No pericardial effusion. There are coronary artery calcifications. Thoracic aorta is normal in caliber with mild calcified atherosclerosis. Mediastinum and alana: No mediastinal or hilar lymphadenopathy. Lungs and pleura: Upper lobe predominant patchy subpleural groundglass opacities on CT chest 07/18/20 20 has resolved. There are minimal residual subpleural interstitial changes in the left upper lobe.. Background pleural-parenchymal consolidative opacity in the right apex, and smaller pleural-parenchym al opacities in the left apex are unchanged from 08/21/2018. Mild emphysema, greater in the right lung , is unchanged. A 4 mm pulmonary nodule in the right lower lobe is unchanged from 2019. No pleural ef fusion. The airways are clear. Chest wall and axillae: No axillary lymphadenopathy. Upper abdomen: Unremarkable. Bones: No acute osseous abnormality. IMPRESSION: 1. Resolution of peripheral and upper lobe predominant opacities seen on 07/18/2020. 2. Pleural parenchymal scarring in the lung apices and 4 mm pulmonary nodule in the right upper lobe , stable from 08/21/2018. 3. Mild emphysema. 4. Calcifications in the coronary arteries and aorta. Electronically signed by: Alida Bansal MD (01/21/2021 9:20 AM) [id number]
== END ==
LOC: CT 08:37
PROVIDERS: ATTEND Internal Medicine Critical Care Medicine
DX: J43.9 Emphysema, unspecified (principal); R91.1 Solitary pulmonary nodule; J18.9 Pneumonia, unspecified organism; I70.0 Atherosclerosis of aorta; I25.10 Atherosclerotic heart disease of native coronary artery without angina pectoris; J98.4 Other disorders of lung
CPT/HCPCS: 71250

== ENCOUNTER → 2021-03-11 | Outpatient (CLI) | payer MEDICARE ==
--- NOTE | 2021-03-11 17:27 | KCIC ---
EXAM: CHEST 2 VIEWS. HISTORY: Pneumonia, chronic obstructive pulmonary disease exacerbation, cough, shortness of breath, f ever. COMPARISON: 07/26/2020. FINDINGS: Frontal and lateral views of the chest are obtained. There are patchy interstitial and airspace opacities throughout all lobes, but these appear stable to improved since the prior study and likely reflect scarring as seen on prior CT. There is no pneumoth orax or pleural effusion. The heart is not enlarged. Hyperinflation suggests chronic obstructive pulm onary disease. There are atherosclerotic calcifications of the aorta. IMPRESSION: 1. Patchy scarring is not clearly changed. No clear acute infiltrate. Electronically signed by: Kendra Barker MD (03/11/2021 5:25 PM) [id number]
== END ==
LOC: KCIC 14:27
PROVIDERS: ATTEND Physician Assistant
DX: J44.1 Chronic obstructive pulmonary disease with (acute) exacerbation (principal); J18.0 Bronchopneumonia, unspecified organism; I70.0 Atherosclerosis of aorta; J98.4 Other disorders of lung
CPT/HCPCS: 71046

== ENCOUNTER → 2021-04-12 | Outpatient (CLI) | payer MEDICARE ==
--- NOTE | 2021-04-12 15:37 | CARD ---
MR#: [id number] Date of Study: 04/12/2021 Ordering Physician: AMBER VELAZQUEZ, Referring Physician: AMBER VELAZQUEZ Tech: Trinity Gresham [facility] APPROVED REPORT EXAM: Two-dimensional and M-mode echocardiogram with Doppler and color Doppler. Other Information Quality : AverageHR: 72bpm Rhythm : NSR INDICATION COPD RISK FACTORS Hypertension 2D DIMENSIONS RVDd3.6 (2.9-3.5cm)Left Atrium(2D)3.1 (1.6-4.0cm) IVSd1.0 (0.7-1.1cm)Aortic Root(2D)3.3 (2.0-3.7cm) LVDd5.1 (3.9-5.9cm)LVOT Diameter2.2 (1.8-2.4cm) PWd0.9 (0.7-1.1cm)LVDs3.4 (2.5-4.0cm) FS (%) 32.7 %SV75.4 ml LVEF(%)60.8 (>50%) Aortic Valve AoV Peak Raghu.135.9cm/sAoV VTI27.9cm AO Peak GR.7.4mmHgLVOT Peak Raghu.97.9cm/s AO Mean GR.3mmHgAVA (VMAX)2.70cm2 Mitral Valve MV E Htjddhex45.9cm/sMV DECEL [id number] MV A Rlsiiauw36.0cm/sE/A Ratio0.9 Pulmonary Valve PV Peak Zvqqhzcd311.8cm/s Tricuspid Valve TR P. Uxgzdxdb488im/sTR Peak Gr.24mmHg LEFT VENTRICLE The left ventricle is normal size. There is normal left ventricular wall thickness. The left ventricu lar systolic function is normal and the ejection fraction is within normal range. Estimated ejection fraction 65%. There is normal LV segmental wall motion. Tissue Doppler imaging reveals mild left vent ricular diastolic dysfunction. RIGHT VENTRICLE The right ventricle is normal size. There is normal right ventricular wall thickness. The right ventr icular systolic function is normal. ATRIA The left atrium size is normal. The right atrium size is normal. The interatrial septum is intact wit h no evidence for an atrial septal defect or patent foramen ovale as noted on 2-D or Doppler imaging. AORTIC VALVE The aortic valve is normal in structure and function. Doppler and Color Flow revealed no significant aortic regurgitation. There is no significant aortic valvular stenosis. MITRAL VALVE The mitral valve is normal in structure and function. There is no evidence of mitral valve prolapse. There is no mitral valve stenosis. Doppler and Color-flow revealed trace mitral regurgitation. TRICUSPID VALVE The tricuspid valve is normal in structure and function. Doppler and Color Flow revealed trace to mil d tricuspid regurgitation. Estimated PAP 30 mmHg. There is no tricuspid valve stenosis. PULMONIC VALVE Doppler and Color Flow revealed mild pulmonic valvular regurgitation. There is no pulmonic valvular s tenosis. GREAT VESSELS The aortic root is normal in size. The ascending aorta is normal in size. The IVC is normal in size a nd collapses >50% with inspiration. PERICARDIAL EFFUSION There is no evidence of significant pericardial effusion. Critical Notification Critical Value: No <Conclusion> The left ventricular systolic function is normal and the ejection fraction is within normal range. E stimated ejection fraction 65%. There is normal LV segmental wall motion. Signed by : Chapin Marroquin, Electronically Approved : 04/12/2021 15:37:20
== END ==
LOC: ECHO 10:38
PROVIDERS: ATTEND Internal Medicine Cardiovascular Disease
DX: I08.8 Other rheumatic multiple valve diseases (principal); I49.3 Ventricular premature depolarization
CPT/HCPCS: 93306

== ENCOUNTER → 2021-04-29 | Outpatient (CLI) | payer MEDICARE ==
--- NOTE | 2021-05-02 12:42 | RAD ---
MR#: [id number] Date of Study: 04/29/2021 Ordering Physician: AMBER VELAZQUEZ, Referring Physician: AMBER VELAZQUEZ Tech: Mady Barnett RT R, CT RDMS AB, T APPROVED REPORT Patient Location: OUT-PATIENT Indications Rest Pain:Bilaterally VELOCITY AND DOPPLER WAVEFORM ANALYSIS RIGHT cm/secWaveformSeverity LEFT cm/secWaveform Severity dCFA 114.0TriphasicdCFA 95.0Triphasic Prof Fem Art. 73.0TriphasicProf Fem Art. 68.0Triphasic Fem Art Prox. 94.0TriphasicFem Art Prox. 106.0Triphasic Fem Art Mid. 111.0TriphasicFem Art Mid. 99.0Triphasic Fem Art Dist. 89.0TriphasicFem Art Dist. 73.0Triphasic Pop Art(Fossa) 73.0TriphasicPop Art(AK) 91.0Triphasic CORRECTIVE THERAPIST Prox. 97.0TriphasicPTA Prox. 111.0Triphasic CORRECTIVE THERAPIST Dist. 52.0TriphasicPTA Dist. 54.0Triphasic Per Art Mid. 50.0TriphasicPer Art Mid. 62.0Triphasic MAX Prox. 115.0TriphasicATA Prox. 137.0Triphasic DPA 87TriphasicDPA 79Triphasic Findings Grayscale images of the bilateral lower extremity arterial vessels demonstrate mild diffuse atheroscl erosis. Spectral waveforms and color Doppler are within normal limits with normal triphasic waveforms through out. Velocities are within normal limits. Mildly elevated velocities in the bilateral anterior tibi al arteries suggestive of moderate 50% stenosis. Otherwise there is three-vessel runoff Critical Notification Critical Value: No <Conclusion> 1. No critical lower extremity arterial disease noted. There is three-vessel runoff bilaterally wit h probable moderate 50% stenosis involving the anterior tibial arteries bilaterally. Signed by : Chapin Marroquin, Electronically Approved : 05/02/2021 12:42:10
== END ==
LOC: US 14:48
PROVIDERS: ATTEND Internal Medicine Cardiovascular Disease
DX: I70.203 Unspecified atherosclerosis of native arteries of extremities, bilateral legs (principal); M79.604 Pain in right leg; M79.605 Pain in left leg
CPT/HCPCS: 93925

== ENCOUNTER → 2021-09-26 | Outpatient (CLI) | payer MEDICARE ==
[~2021-09-26] MED LIST changes: -LEVO500T8 PO; +LEVO500T9 PO
--- NOTE | 2021-09-26 12:42 | RAD ---
CT THORAX WO INDICATION: LUNG NODULE COMPARISON STUDY: 01/21/2021. TECHNIQUE: Unenhanced axial images were obtained through the lungs and upper abdomen. Coronal and sa gittal multiplanar reconstructions were also obtained. PQRS compliance statement: One or more of the following individualized dose reduction techniques were utilized for this examinat ion: 1. Automated exposure control 2. Adjustment of the mA and/or kV according to patient size 3. 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 There are a couple of small pulmonary nodules which are stable. Paraseptal and centrilobular emphysema. Normal ce ntral airways. Pleura: The pleural spaces are normal. Heart and Mediastinum: The visualized thyroid gland is normal in size and attenuation. No axillary or supraclavicular lymphadenopathy. No mediastinal, hilar or retrocrural lymphadenopathy. The heart and pericardium are within normal limits. Coronary artery atherosclerotic disease. Atherosclerosis of th e thoracic aorta. Abdomen: Left renal calculus. Partially visualized ventral abdominal wall hernia. Bones and Soft Tissues: Degenerative changes of the spine. IMPRESSION: 1. There are a couple tiny pulmonary nodules which remain stable. No mass or lymphadenopathy. 2. Emphysema. 3. Coronary artery atherosclerotic disease. Electronically signed by: Chavez Taylor MD (09/26/2021 12:40 PM) [id number]
== END ==
LOC: CT 09:41
PROVIDERS: ATTEND Internal Medicine Critical Care Medicine
DX: R91.8 Other nonspecific abnormal finding of lung field (principal); I25.10 Atherosclerotic heart disease of native coronary artery without angina pectoris; J43.2 Centrilobular emphysema; I70.0 Atherosclerosis of aorta; N20.0 Calculus of kidney; K43.9 Ventral hernia without obstruction or gangrene; M47.819 Spondylosis without myelopathy or radiculopathy, site unspecified
CPT/HCPCS: 71250